=== PATIENT | male | born 1935 | race Caucasian/White ===

== ENCOUNTER 2022-03-31 15:26 | Outpatient (REF) | payer MEDICARE, SELFPAY ==
--- NOTE | ~2022-03-31 | XR_ITS ---
EXAMINATION: XR CHEST CLINICAL INFORMATION: Wheezing COMPARISON: Previous chest x-ray September 2019 TECHNIQUE: 2 views of the chest were obtained. FINDINGS: The cardiac and mediastinal contours are stable. The lungs are clear. There is no pleural effusion or pneumothorax. There are degenerative changes of the spine. XR/XR chest 2V IMPRESSION: No evidence for acute disease in the chest.
== END 2022-03-31 15:27 | disposition home or self-care (01) ==
LOC: HO.XRAY 15:26
PROVIDERS: PCP Internal Medicine; Visit Provider Hospitalist
DX: G47.33 Obstructive sleep apnea (adult) (pediatric) (principal); R06.2 Wheezing; Z99.89 Dependence on other enabling machines and devices
CPT/HCPCS: 71046; 99202

== ENCOUNTER → 2022-10-05 14:45 | Outpatient (BNVA) | payer MEDICARE, SELFPAY | PROVIDERS: PCP Internal Medicine; Visit Provider Hospitalist | DX: G47.33 Obstructive sleep apnea (adult) (pediatric) (principal); R06.02 Shortness of breath; Z99.89 Dependence on other enabling machines and devices | CPT/HCPCS: 99212 ==

== ENCOUNTER 2023-04-01 14:52 | Outpatient (AMB) | payer MEDICARE, SELFPAY ==
[2023-04-01 14:58] VITALS: BP 128/70; PULSE 64; O2SAT 95; BMI 34.7
--- NOTE | 2023-04-01 14:58 | A.OFFVIS_ITS ---
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 He has been using CPAP now for many years. The CPAP therapy has been affecting beneficial for him. he does uses CPAP more than 4 hours a night. He did bring it in we were able to downloaded. Average use is around 6 hours and 30 minutes. His average pressure is close to 11 cm. Currently the APAP settings are working well for him. His AHI is that the 0.6 events an hour. Recently he did get a call from his [employer] company, [employer]. Did explain to her the machine is no longer working effectively. He would require a replacement machine at this time. Therefore, go ahead and submit a new prescription for a new APAP AirSense 11. respiratory levi he is doing well. On examination he does have some wheezing. He does not use any inhalers and which is not to use 1 at this time. The patient understands that if his wheezing shortness of breath is worse he is to call the office with start him on inhaler therapy. Patient will also undergo a chest x-ray. The 10/05/2022 the patient is here for a pulm onary follow-up visit. The patient continues uses CPAP therapy. The therapy continues to be affecting beneficial. He does use a nasal mask. The problem is that this current nasal mask is irritating his nasal bridge. He is having some breakdown in irritation making it hard for him to tolerate he also complains of a dry mouth. In the office year we had a F 30 mask available. Size small. Seems to fit him well. He understands the fullface mask will help with his mouth dryness he understands that the dryness is not good for his gingival and dental health. He is willing to try. I also sent a prescription to his [employer] company, [employer] in order for him to continue with this mask. If however the patient cannot tolerate the fullface mask he can always consider an N30 I mask which should be a cradle type of mask. We did review his chest x-ray. Was within normal limits. No acute disease. Denies any significant wheezing overall he is doing better no significant shortness of breath. He is grieving the loss of his in this has been very hard. He has been staying with his son and daughter. 04/01/2023 the patient is here for a pulm onary follow-up visit. The patient has been doing well from a CPAP standpoint. The CPAP therapy has been affecting beneficial. He has been using his equipment and has been getting supplies regularly. Sometimes he alternates from his old mask to the new mask but ultimately continues use it more than 4 hours a night at therapy has been affecting beneficial. Regards the asthma seems to be doing well. Has not required his inhaler. The patient has been complaining of some dyspnea on exertion but minimal. He is staying busy working in the [employer] and help his neighbors. He is still grieving the loss of his . He is here for here in the room. The patient does have some crackles on his left base will therefore will request a repeat x-ray to address those findings. [facility] Medical History (Updated 04/01/23 @ 15:22 by Samson Torrez MD) ABEBE on CPAP Social History (Updated 03/31/22 @ 15:06 by REJI Manriquez) Patient Tobacco Use Status: Former Tobacco user Tobacco use type: Cigarette Years Smoked: 20 years Review of Systems Const Denies fatigue Eyes Denies change in vision ENT Denies change in voice, Reports facial pain and Reports nasal trauma Card Denies chest pain Resp Reports cough and Denies wheezing GI Reports no additional complaints Musc Reports no additional complaints Skin/Breast Denies rash Neuro Reports no additional complaints Endo Denies fatigue Francis/Lymph Denies easy bleeding Aller/Immun Denies wheezing Physical Exam Vital Signs: Last Vital Signs Pulse 64 04/01/23 14:58 BP 128/70 04/01/23 14:58 Pulse Ox 95 04/01/23 14:58 Oxygen Delivery Method Room Air 04/01/23 14:58 BMI result Body Mass Index 34.7 Const General: comfortable HEENT Head: Yes normal to inspection Neck Neck: Yes supple Chest Chest palpation & inspection: normal inspection of the chest Resp Effort & Inspection: normal respiratory effort Auscultation: crackles Cardio Rate: regular rate Rhythm: regular rhythm Heart sounds: S1 normal heart sound present and S2 normal heart sound present GI Auscultation: normal bowel sounds Skin General skin exam: no rashes or lesions noted Lesions: no lesions Extrem General: Yes no clubbing, cyanosis or edema Assessment & Plan Assessment & Plan (1) ABEBE on CPAP: Code(s): G47.33 - Obstructive sleep apnea (adult) (pediatric); Z99.89 - Dependence on other enabling machines and devices (2) Chest crackles: Code(s): R09.89 - Other specified symptoms and signs involving the circulatory and respiratory systems Plan continue APAP F30 small mask consider OBED CXR F/U 10-12 months Orders: Orders XR chest 2V Today R09.89 - Other specified symptoms and signs involving the circulatory and respiratory systems Coding Level of Care Code Est Pt Level 4 (61230) Diagnoses ABEBE on CPAP G47.33; Z99.89 Chest crackles R09.89 Time Spent (min) 17
== END 2023-04-01 15:30 | disposition home or self-care (01) ==
PROVIDERS: PCP Internal Medicine; Visit Provider Hospitalist
DX: G47.33 Obstructive sleep apnea (adult) (pediatric) (principal); Z99.89 Dependence on other enabling machines and devices; R09.89 Other specified symptoms and signs involving the circulatory and respiratory systems
CPT/HCPCS: 99214

== ENCOUNTER → 2023-04-01 14:52 | Outpatient (BNVA) | payer MEDICARE, SELFPAY | PROVIDERS: PCP Internal Medicine; Visit Provider Hospitalist | DX: G47.33 Obstructive sleep apnea (adult) (pediatric) (principal); R09.89 Other specified symptoms and signs involving the circulatory and respiratory systems; Z87.891 Personal history of nicotine dependence; Z99.89 Dependence on other enabling machines and devices | CPT/HCPCS: 99212 ==

== ENCOUNTER 2023-04-06 13:45 | Outpatient (REF) | payer MEDICARE, SELFPAY ==
--- NOTE | ~2023-04-06 | XR_ITS ---
EXAMINATION: XR CHEST CLINICAL INFORMATION: Other specified symptoms and signs involving the circulatory and respiratory systems COMPARISON: None available. TECHNIQUE: 2 views of the chest were obtained. FINDINGS: No significant abnormality is noted involving the heart, lungs, mediastinum, bony thorax or soft tissues. XR/XR chest 2V IMPRESSION: No acute disease.
== END 2023-04-06 13:46 | disposition home or self-care (01) ==
LOC: HO.XRAY 13:45
PROVIDERS: Visit Provider Hospitalist
DX: R09.89 Other specified symptoms and signs involving the circulatory and respiratory systems (principal)
CPT/HCPCS: 71046

== ENCOUNTER 2023-07-29 10:59 | Inpatient (IN) | payer MEDICARE, SELFPAY ==
[2023-07-29] VITALS (11 sets, daily range): BP systolic 135–179; BP diastolic 55–76; PULSE 48–71; RESP 13–20; TEMP 36–36.6; O2SAT 93–98; BMI 15.5
--- NOTE | ~2023-07-29 | XR_ITS ---
EXAMINATION: XR CHEST CLINICAL INFORMATION: Pain. COMPARISON: None available. TECHNIQUE: 2 views of the chest were obtained. FINDINGS: The lungs are well-expanded and clear. The heart size and pulmonary vascularity is normal. No gross bony abnormality seen. XR/XR chest 2V IMPRESSION: Unremarkable chest exam.
--- NOTE | ~2023-07-29 | FL_ITS ---
EXAMINATION: XR FLUOROSCOPY WITH IMAGES CLINICAL INFORMATION: Pacemaker. COMPARISON: Chest radiograph 07/29/2023. TECHNIQUE: Fluoroscopy Supervised By: Shawn Grace MD. Fluoroscopy Time: 11 minutes. Cumulative Dose: 222 mGy. DAP: 60.7 Gy-cm2. Images: 9. FINDINGS: Sequential imaging demonstrates placement of a right chest wall dual-lead pacemaker: Please see Dr. Grace's procedure note for full details. FL/FL guidance in OR IMPRESSION: Fluoroscopy and spot films provided during pacemaker placement.
--- NOTE | ~2023-07-29 | CT_ITS ---
EXAMINATION: CT HEAD WITHOUT CONTRAST CLINICAL INFORMATION: Unwitnessed fall. COMPARISON: None. TECHNIQUE: Contiguous axial imaging was performed from the skull base to vertex without intravenous administration of contrast. Coronal and sagittal reformatted images are performed at the CT scanner. [This CT examination was performed using dose optimization techniques as appropriate, variously including the following: *Automated exposure control *Adjustment of mA and/or kV according to patient size (this includes techniques or standardized protocols for targeted exams where dose is matched to indication/reason for exam; i.e. extremities or head) *Use of iterative reconstruction technique] DLP: 765 mGy-cm. FINDINGS: There is no evidence of acute intracranial hemorrhage or territorial infarction. No abnormal mass-effect or midline shift is seen. Maldonado to white matter differentiation is well preserved. No extra-axial fluid collections are identified. There is generalized global volume loss. There is moderate prominence of the ventricles and the sulci . There is mild hypodensity of the periventricular white matter due to chronic small vessel ischemic disease. There are vascular calcifications of the internal carotid arteries bilaterally. There is no osseous abnormality. The mastoid air cells and visualized portions of the paranasal sinuses are well-aerated. CT/CT head/brain wo IV con IMPRESSION: No acute intracranial pathology.
--- NOTE | ~2023-07-29 | XR_ITS ---
EXAMINATION: XR CHEST CLINICAL INFORMATION: Status post pacemaker placement COMPARISON: Chest radiograph 07/29/2023 TECHNIQUE: Frontal view of the chest was obtained. FINDINGS: Since the prior study a right chest wall dual-lead pacemaker has been placed with leads in good position. There is no pneumothorax. There is mild cardiac enlargement. No CHF, infiltrates or effusions. XR/XR chest 1V IMPRESSION: Newly placed pacemaker in good position without complication.
--- NOTE | 2023-07-29 11:07 | ECG_ITS ---
Test Reason : pain Blood Pressure : / mmHG Vent. Rate : 068 BPM Atrial Rate : 068 BPM P-R Int : 308 ms QRS Dur : 128 ms QT Int : 434 ms P-R-T Axes : 028 -47 010 degrees QTc Int : 461 ms Sinus rhythm with 1st degree A-V block Left axis deviation Non-specific intra-ventricular conduction block Abnormal ECG When compared with ECG of 20-SEP-2019 14:13, No significant change was found Referred By: Jose Prieto Electronically Signed By:SONIA MCINTOSH
--- NOTE | 2023-07-29 11:07 | ED.GENADULT ---
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 He assumed he slipped on the ice so he thought nothing of it but he is not sure how long his LOC was. He had no trauma and woke up himself no incontinence. He then went about his day. He had no prodrome. He went to coffee with friends around 11am today was sitting and had a witnessed non prodromal syncopal event no seizures no incontinence no tongue biting no postictal state. He feels fine now. He has no CP/SOB or GIB symptoms. MD complaint: syncope Onset (ago): day(s) (yesterday) Severity: moderate Relieving factors: none Exacerbating factors: none Associated symptoms: denies other symptoms Treatments prior to arrival: none Related Data Home Medications Medication Instructions Recorded Confirmed ascorbic acid (vitamin C) 250 mg 250 mg PO DAILY 03/31/22 tablet aspirin 325 mg tablet,delayed 325 mg PO DAILY 03/31/22 release (Ecotrin) atenolol 50 mg tablet 75 mg PO DAILY 03/31/22 atorvastatin 20 mg tablet 20 mg PO DAILY 03/31/22 calcium carbonate 600 mg calcium 600 mg PO DAILY 03/31/22 (1,500 mg) tablet (Calcium) multivitamin 1 tab PO DAILY 03/31/22 benzonatate 100 mg capsule 100 mg PO TID PRN Cough 07/29/23 Allergies Allergy/AdvReac Type Severity Reaction Status Date / Time amoxicillin [From Augmentin] Allergy Severe Rash Verified 07/29/23 11:07 clavulanic acid Allergy Severe Rash Verified 07/29/23 11:07 [From Augmentin] clindamycin Allergy Severe Hives Verified 07/29/23 11:07 levofloxacin [From Levaquin] Allergy Severe Headache Verified 07/29/23 11:07 Review of Systems Review of Systems: Constitutional : No Fever, No Chills, No Fatigue ENT/Mouth : No sore throat, No Rhinorrhea Eyes: No Eye Pain, No Swelling, No Redness Cardiovascular : No Chest Pain, No SOB, No Dyspnea on Exertion Respiratory : No Cough, No Sputum Gastrointestinal : No Nausea, No Vomiting, No Diarrhea, No abdominal Pain Genitourinary : No Dysuria, No Urinary Frequency, No Hematuria, Musculoskeletal : No joint pain, No Myalgias, No Joint Swelling Skin : No Skin Lesions, No rash Neuro : No Weakness, No Numbness, No Dizziness, no Headache, pos syncope Psych : No Anxiety/Panic, No Depression Heme/Lymph: No Bruising, No Bleeding,No Lymphadenopathy Endocrine : No Polyuria, No Polydipsia All other systems reviewed and are negative [facility] Past Medical History Attestation statement: The following information was validated with the patient. Source: old records reviewed Onset Date is defined in the Problem List Problems that require an onset date and time if occurred within 24 hrs of arrival to the ED Aortic Dissection and Rupture; Neurologic impairment; Cardiopulmonary Arrest; Endotracheal Intubation; Insertion or Replacement of Mechanical Circulatory Assist Device Medical History HLD (hyperlipidemia) HTN (hypertension) ABEBE on CPAP Social History Social History Patient Tobacco Use Status: Former Tobacco user Tobacco use type: Cigarette Years Smoked: 20 years Advance Directives: No Advance Directives Information Provided: Yes Physical Exam ED Vital Signs: Vital Signs - 24 hr 07/29/23 11:08 07/29/23 11:52 07/29/23 12:18 Temperature 98 F Pulse Rate 71 61 61 Respiratory Rate 18 15 Blood Pressure 179/76 H 164/69 H 146/75 H Pulse Oximetry 98 94 Oxygen Delivery Method Room Air 07/29/23 12:18 07/29/23 12:19 Temperature Pulse Rate 62 62 Respiratory Rate Blood Pressure 162/75 H 135/65 Pulse Oximetry Oxygen Delivery Method BMI result Body Mass Index 15.5 Appearance: Alert. Oriented X3. No acute distress. Eyes: Pupils equal, round and reactive to light. ENT: Pharynx normal. Neck: Normal inspection. Neck supple. CVS: Normal heart rate and rhythm. Pulses normal. Respiratory: No respiratory distress. Breath sounds normal. Abdomen: Soft and nontender. Skin: Skin warm and dry. Normal skin color. Normal skin turgor. Extremities: No lower extremity edema. No calf ttp Neuro: Oriented X 3. No motor deficit. No sensory deficit. Course Course Course Narrative: RME- 88-year-old male presents for evaluation after a witnessed syncopal episode. He reports this happened yesterday while he was snow blowing and then again today. He was sitting down in a chair when ?his eyes rolled back in his head and he was unresponsive for a few seconds. ? Patient admits that he felt dizzy prior to this but is not currently dizzy. Plan for syncopal workup Reevaluation(s) Reevaluation #1: negative ortho VS Medications Administered Generic Name Dose Route Start Last Admin Trade Name Freq PRN Reason Stop Dose Admin Enoxaparin Sodium 30 mg 07/29/23 14:00 07/29/23 15:05 Enoxaparin Sodium 30 Mg/0.3 Ml Syringe SUBCUT 30 mg Q24H GRISELDA Administration Discontinued Medications Generic Name Dose Route Start Last Admin Trade Name Freq PRN Reason Stop Dose Admin Sodium Chloride 1,000 mls @ 999 mls/hr 07/29/23 14:00 07/29/23 14:55 Ns IV 07/29/23 15:00 999 mls/hr .Q1H1M GRISELDA Administration Medical Decision Making Medical Decision Making [facility] Narrative: 88 yo male with PMH of HTN, HLD, ABEBE here with c/o non prodromal and exertional syncope then syncope at rest today. He will need labs, EKG, ortho VS but also admission for tele monitoring and cardiology consult given exertional syncope. Differential Diagnosis Differential Diagnoses: The differential diagnosis associated with the presentation includes syncope, ahrrythmia Admission/Observation Consideration of admission/observation: Escalation of care including admission/observation considered will admit Consult Healthcare Provider Management of the patient was discussed with: Hospitalist (will admit) Lab Data [facility] Lab Attestation statement: I reviewed the patient's lab results. 07/29/23 11:21 07/29/23 11:21 Labs: Lab Results 07/29/23 Range/Units 11:21 WBC 7.4 (4.8-10.8) X10*3/uL RBC 5.27 (4.60-5.80) X10*6/uL Hgb 15.1 (14.0-18.0) g/dl Hct 45.7 (42.0-52.0) % MCV 86.7 (80.0-98.0) fL MCH 28.7 (27.0-33.0) pg MCHC 33.0 (31.0-36.0) g/dl RDW 14.3 (11.0-16.0) % Plt Count 148 L (160-400) X10*3/uL MPV 11.5 (9.4-12.4) fL Immature Gran % (Auto) 0.4 (0.0-0.4) % Neut % (Auto) 46.9 (45-73) % Lymph % (Auto) 38.5 (20-40) % [place] % (Auto) 9.2 (2-11) % Eos % (Auto) 3.8 (0-4) % Baso % (Auto) 1.2 (0-2) % Lymph # (Auto) 2.8 (1.2-4.9) X10*3/uL [place] # (Auto) 0.7 (0.1-1.2) X10*3/uL Eos # (Auto) 0.3 (0.0-0.4) X10*3/uL Baso # (Auto) 0.1 (0.0-0.2) X10*3/uL Abs Immat Gran (auto) 0.03 (0.00-0.03) X10*3/uL Absolute Neuts (auto) 3.5 (2.0-8.3) x10*3/uL Absolute Nucleated RBC 0.000 (0.0-0.012) X10*3/uL Nucleated RBC % (auto) 0.0 (0.0-0.2) /100WBC PT 13.3 (11.1-13.3) SEC INR 1.1 (0.9-1.1) APTT 53.5 H (26.0-36.4) SEC Sodium 140 (135-145) mmol/L Potassium 4.4 (3.3-5.1) mmol/L Chloride 107 (96-108) mmol/L Carbon Dioxide 27 (22-29) mmol/L Anion Gap 10 L (12-20) BUN 17 H (9-16) mg/dL Creatinine 1.13 (0.5-1.4) mg/dL Estim Creat Clear Calc 29.5 Estimated GFR > 60 Random Glucose 98 (60-115) mg/dL Calcium 9.8 (8.4-10.2) mg/dL Total Bilirubin 0.4 (0.0-1.0) mg/dL AST 57 H (5-37) U/L ALT 55 H (0-40) U/L Alkaline Phosphatase 71 (39-117) U/L Troponin I High Sens 4.5 (<3.5-35.0) ng/L B-Natriuretic Peptide 78 (<100) pg/mL Total Protein 8.1 H (6.5-8.0) g/dL Albumin 4.2 (3.5-5.0) g/dL Lipase 21 (8-78) U/L Independent Interpretation I performed an independent interpretation of an: EKG and Plain X-Ray Interpretation: Rate: 68 Rhythm: NSR 1st degree AVB [place]: left Normal P waves. Normal KATH. widened QRS complex. ST T wave : no SHAUNNA, inverted t wave III qTC: 461 prior studies: no acute ischemia The study has been interpreted contemporaneously by me. . Radiology Impression Discussion of test interpretation with radiology: I have reviewed the radiologist's reading. Independent Historian Clinical information obtained from an independent historian. History obtained from or confirmed by: Friend External Record Review External record reviewed: Inpatient record Discharge Plan Discharge Clinical Impression: Syncope Qualifiers: Syncope type: unspecified Qualified Code(s): R55 - Syncope and collapse Patient Disposition: Admitted As Inpatient
[2023-07-29 11:27] LABS: MANUAL DIFF FLAG NO
[2023-07-29 11:32] LABS: Basophils Absolute Auto 0.1 X10*3/uL (0.0-0.2); Basophils Percent Auto 1.2 % (0-2); Eosinophils Absolute Auto 0.3 X10*3/uL (0.0-0.4); Eosinophils Percent Auto 3.8 % (0-4); Hematocrit 45.7 % (42.0-52.0); Hemoglobin 15.1 g/dl (14.0-18.0); Imm Gran Abs Auto 0.03 X10*3/uL (0.00-0.03); Imm Gran Pct Auto 0.4 % (0.0-0.4); Lymphocytes Absolute Auto 2.8 X10*3/uL (1.2-4.9); Lymphocytes Percent Auto 38.5 % (20-40); Mean Corpuscular Hemoglobin 28.7 pg (27.0-33.0); Mean Corpuscular Volume 86.7 fL (80.0-98.0); Mean Platelet Volume 11.5 fL (9.4-12.4); Monocytes Absolute Auto 0.7 X10*3/uL (0.1-1.2); Monocytes Percent Auto 9.2 % (2-11); Neutrophils Absolute Auto 3.5 x10*3/uL (2.0-8.3); Neutrophils Percent Auto 46.9 % (45-73); Platelet Count 148 X10*3/uL (160-400); Red Blood Count 5.27 X10*6/uL (4.60-5.80); Red Cell Distribution Width 14.3 % (11.0-16.0); White Blood Count 7.4 X10*3/uL (4.8-10.8)
[2023-07-29 11:36] LABS: INTERNATIONAL NORM RATIO 1.1 (0.9-1.1); Prothrombin Time 13.3 SEC (11.1-13.3)
[2023-07-29 11:39] LABS: Partial Thromboplastin Time 53.5 SEC (26.0-36.4)
[2023-07-29 11:46] LABS: Alanine Aminotransferase 55 U/L (0-40); Albumin Level 4.2 g/dL (3.5-5.0); Alkaline Phosphatase 71 U/L (39-117); Anion Gap 10 (12-20); Aspartate Amino Transferase 57 U/L (5-37); Bilirubin Total 0.4 mg/dL (0.0-1.0); Blood Urea Nitrogen 17 mg/dL (9-16); Calcium 9.8 mg/dL (8.4-10.2); Carbon Dioxide 27 mmol/L (22-29); Chloride 107 mmol/L (96-108); Creatinine Clr Calc Pharmacy 29.5; Estimated Glomerular Filt Rate > 60; Glucose Random 98 mg/dL (60-115); Lipase 21 U/L (8-78); Potassium 4.4 mmol/L (3.3-5.1); Sodium 140 mmol/L (135-145); Total Protein 8.1 g/dL (6.5-8.0)
[2023-07-29 11:51] LABS: B Type Natriuretic Peptide 78 pg/mL (<100); Troponin-I High Sensitivity 4.5 ng/L (<3.5-35.0)
--- NOTE | 2023-07-29 12:53 | P.HPHOSP_ITS ---
History of Present Illness Date of Service: 07/29/23 Attending physician on admission: Bartolo Mcdaniel Chief Complaint: Syncope Pt is an 88-year-old male with a PMH significant for?HTN, HLD, ABEBE on CPAP who presents to the ED with?two syncopal episodes in the past 24 hours. Yesterday pt was out snowblowing when a passerby in a truck yellow at him if he needed any help. Patient found himself in a snow bank without any clear recollection how he ended up there. Thought that he must have slipped on the ice and falling back into this no back. Denies any prodrome. No lightheadedness or dizziness during this episode. Patient was helped to his feet by the passerby and had no other symptoms other some muscle tightness in his upper right thigh. Today patient was out having breakfast with some friends when had another episode. States he was just talking to people when he felt lightheaded, dizzy, and then ?passed out?. The next thing he remembers is waking up and his friends saying they were taking him to the hospital for further evaluation. Patient does report having lightheadedness and dizziness before episode, but no other symptoms. Denies chest pain/pressure, palpitations. No headache, acute vision changes. Denies any seizure-like activity. No tongue bite, no incontinence. Patient denies any significant cardiac history, and states he is on atenolol solely for blood pressure control. Reports taking one 50 mg tablet in the morning and a half tablet at night. Has recently started taking magnesium, reports no other medication changes and reports being compliant with his medications. In the ED pt was hypertensive up to 179/76, otherwise vitals WNL. Labs were significant for AST 57, ALT 55, otherwise grossly unremarkable. No leukocytosis. No electrolyte abnormalities. Creatinine 1.13. CXR pending, pelvic similar to previous. EKG demonstrated first-degree AV block with left axis deviation, but no evidence of ST elevations or depressions. First degree AV block has increased significantly since last EKG we have on record from 2019. Pt will be admitted to the hospital under observation for further workup for syncopal episodes. Review of Systems 2 Review of Systems: Lightheadedness Syncopal episodes Denies headache, acute vision changes No tongue bite or incontinence No confusion upon waking Denies chest pain/pressure, palpitations No fever, chills, nausea, vomiting, abdominal pain [facility] Medical History (Updated 07/29/23 @ 14:04 by ANKIT Meyer) HLD (hyperlipidemia) HTN (hypertension) ABEBE on CPAP Social History Patient Tobacco Use Status: Former Tobacco user Tobacco use type: Cigarette Years Smoked: 20 years Advance Directives: No Advance Directives Information Provided: Yes Meds Allergies Allergy/AdvReac Type Severity Reaction Status Date / Time amoxicillin [From Augmentin] Allergy Severe Rash Verified 07/29/23 11:07 clavulanic acid Allergy Severe Rash Verified 07/29/23 11:07 [From Augmentin] clindamycin Allergy Severe Hives Verified 07/29/23 11:07 levofloxacin [From Levaquin] Allergy Severe Headache Verified 07/29/23 11:07 Home Medications Medication Instructions Recorded Confirmed Last Taken Type ascorbic acid (vitamin C) 250 mg 250 mg PO DAILY 03/31/22 Unknown History tablet aspirin 325 mg tablet,delayed 325 mg PO DAILY 03/31/22 Unknown History release (Ecotrin) atenolol 50 mg tablet 75 mg PO DAILY 03/31/22 Unknown History atorvastatin 20 mg tablet 20 mg PO DAILY 03/31/22 Unknown History calcium carbonate 600 mg calcium 600 mg PO DAILY 03/31/22 Unknown History (1,500 mg) tablet (Calcium) multivitamin 1 tab PO DAILY 03/31/22 Unknown History benzonatate 100 mg capsule 100 mg PO TID PRN Cough 07/29/23 Unknown History Physical Exam 2 Vital Signs and Narrative: Vital Signs: Last Vital Signs Temp 98 F 07/29/23 11:08 Pulse 62 07/29/23 12:19 Resp 15 07/29/23 11:52 BP 135/65 07/29/23 12:19 Pulse Ox 94 07/29/23 11:52 O2 Del Method Room Air 07/29/23 11:52 BMI result Body Mass Index 15.5 Constitutional: Alert, in no acute distress. Mental Status: Oriented to person, place and time. Eyes: Pupils are equal, round, and reactive to light. Ear, Nose, and Throat: Oropharynx clear, mucous membranes moist. Ears and nose without deformities. Trachea midline. Respiratory: Clear to auscultation bilaterally. No wheezing, rales, or rhonchi. Cardiovascular: S1, S2 regular. No murmurs, rubs, or gallops. Gastrointestinal: Abdomen soft, non-tender, non-distended. Normal bowel sounds. Neurologic: Cranial nerves II-XII are grossly intact bilaterally. No focal neurological deficits. Moves all extremities spontaneously. Skin: Warm, dry. Musculoskeletal: No cyanosis or clubbing. Extremities: No edema. Right thigh tender to palpation. ROM of right hip extension limited to pain. Psychiatric: Normal mood and affect. Results Labs 07/29/23 11:21 07/29/23 11:21 Labs: Laboratory Results - last 24 hr 07/29/23 11:21 MCV 86.7 MCH 28.7 MCHC 33.0 RDW 14.3 Plt Count 148 L MPV 11.5 Immature Gran % (Auto) 0.4 Neut % (Auto) 46.9 Lymph % (Auto) 38.5 [place] % (Auto) 9.2 Eos % (Auto) 3.8 Baso % (Auto) 1.2 Lymph # (Auto) 2.8 [place] # (Auto) 0.7 Eos # (Auto) 0.3 Baso # (Auto) 0.1 Abs Immat Gran (auto) 0.03 Absolute Neuts (auto) 3.5 Absolute Nucleated RBC 0.000 Nucleated RBC % (auto) 0.0 PT 13.3 INR 1.1 APTT 53.5 H Anion Gap 10 L Estim Creat Clear Calc 29.5 Estimated GFR > 60 Random Glucose 98 Calcium 9.8 Total Bilirubin 0.4 AST 57 H ALT 55 H Alkaline Phosphatase 71 B-Natriuretic Peptide 78 Total Protein 8.1 H Albumin 4.2 Lipase 21 Assessment and Plan (1) Syncope: Qualifiers: Syncope type: unspecified Qualified Code(s): R55 - Syncope and collapse Status: Acute Plan Pt is an 88-year-old male with a PMH significant for?HTN, HLD, ABEBE on CPAP who presents to the ED with?two syncopal episodes in the past 24 hours. Pt will be admitted to the hospital under observation for further workup for syncopal episodes. Syncopal episodes Patient with 2 syncopal episodes since yesterday Etiology unclear: ?Differential includes vasovagal vs cardiac vs mild dehydration Random glucose 98, orthostatics negative, patient without seizure-like or postictal activity Patient bradycardic in the 50s, currently on 75 mg split-dosed of atenolol Will give 1 L IVF Will hold atenolol Echocardiogram Cardiology consult Neurochecks qshift Monitor on telemetry Bradycardia Pt's HR in the 50s Will hold atenolol Monitor on telemetry Abnormal EKG EKG shows first degree AV block, significantly increased over previous on 09/2019 Monitor on telemetry Cardiology consult HTN Will hold atenolol d/t bradycardia, syncope Will swich to amlodipine 5 mg daily Right thigh pain/tightness Chronic, though worse after fall yesterday while snow blowing Analgesics for pain management PT consult ABEBE CPAP at nighttime HLD Continue statin Full Code Attending:?Dr. Mcdaniel DVT Prophylaxis: Julee Patient will be admitted to the hospital under observation for further workup of multiple syncopal episodes since yesterday. Patient require additional cardiac imaging, workup, and monitoring, as well as specialist consultation. Quality Stroke Does the patient have a stroke diagnosis?: No VTE Prior VTE?: No VTE Risk Level:: Medical - moderate - high VTE Device Contraindication: Treatment Not Indicated VTE Drug Contraindication: N/A - Med Ordered
[2023-07-29 14:02] LABS: Appearance Urine Clear; Color Urine Dark Yellow; Glucose Urine UA Negative (Negative); Leukocyte Esterase Urine Negative (Negative); Nitrite Urine Negative (Negative); PH 6.5 (5.0-9.0); UMIC TRIGGER UACC YES; Urine Blood Large (3+) (Negative); Urine Ketones Negative (Negative); Urine Protein Negative (Neg-Trace)
[2023-07-29 14:06] LABS: Bacteria Urine None Seen (None Seen); Hyaline Casts Urine 0-2 /LPF (0-2); RBC Urine >20 /HPF (0-2); Squamous Epithelial Cell Urine 0-2 /HPF (0-2); WBC Urine 0-5 /HPF (0-5)
[2023-07-29] MEDS: 0.9 % Sodium Chloride 1,000 ML 999 ML IV (14:55)
[2023-07-29] MEDS: Enoxaparin Sodium 30 MG/0.3 ML SYRINGE SUBCUT (15:05)
--- NOTE | 2023-07-29 15:12 | PC.NURSE ---
pt a+o x2, he reports having two syncopal episodes within a 24 hour period. he states that he was snow blowing yesterday and passed out, his neighbor helped him up. this morning while having coffee with his friends he passed out again. unknown if loc with first episode. no loc this morning. he reports feeling dizzy prior to passing out this morning. neuros are intact.
--- NOTE | 2023-07-29 15:24 | PHA.MEDREC ---
Pharmacy Consult ? Medication Reconciliation Pharmacy has completed the medication reconciliation. Basket Bottom Machine Operator Anselmo spoke with patient who confirmed medicaitons. Cristine Leong, GermanD
--- NOTE | 2023-07-29 15:28 | PC.NURSE ---
20g iv inserted L wrist, pt tolerated well. fluid started and Lovenox administered as documented. pt's daughter is at his bedside.
--- NOTE | 2023-07-29 19:18 | MHC.EDTECH ---
This pct assumed care of Pt at 1900 ,vitals taken ,Pt refused to wear red socks at this time ,Patient said he will switch socks when he has a bed upstairs ,RN Nissa aware ,Pt belonings list done ,Patient daughter at bedside .
--- NOTE | 2023-07-29 19:31 | MHC.EDTECH ---
Pt was assisted to the bedside commode and the pt urinated and passed stool. The pt cleaned themselves and was assisted back in bed and had no further requests.
[2023-07-29] MEDS: Atorvastatin Calcium 20 MG TABLET PO (21:28)
[2023-07-29] MEDS: 0.9 % Sodium Chloride Flush 3 ML SYRINGE IVFLUSH (21:29)
[2023-07-30] VITALS (7 sets, daily range): BP systolic 117–178; BP diastolic 60–74; PULSE 54–76; RESP 18–24; TEMP 35.9–36.5; O2SAT 92–93
--- NOTE | 2023-07-30 | EEG_ITS ---
This is a 16-channel EEG with an EKG lead. The patient is reported awake and restless during the tracing. Background EEG rhythm is 7-8 hertz 5-50 microvolt posteriorly, lower amplitude fast anteriorly. Photic stimulation does not produce any significant driving. Hyperventilation is not performed. Cardiac lead does not reveal any significant abnormality. No obvious sharp wave spikes or paroxysmal tendency noted. Cardiac lead does not reveal any significant abnormality. IMPRESSION: Generalized slowing with no evidence of seizure disorder. MD JON Masterson/ROJELIO / [id number]
--- NOTE | 2023-07-30 07:00 | CA_ITS ---
Transthoracic Echocardiogram Patient (Last, First, Middle): Clive Servin H Gender: Male Date of : 1935 Age: 88 Procedure Date: 07/30/2023 Procedure Type: Transthoracic Echocardiogram Location: [facility] [place] Height: 172.72 cm Weight: 102. kg BSA: 2.15 m2 Heart Rate: 62 bpm BP: 135 / 65 mmHg Apprentice Electrician: SB Referring MD: Khadra PHAM Symptoms: Syncope Study Quality: Adequate w contrast ECG Rhythm: Sinus Conclusions: - The left ventricular systolic function is hyperdynamic. The visually estimated ejection fraction is >70%. - No obvious valvular pathology seen on this study. Findings Procedure Information Contrast agent, definity, is being given per protocol without apparent complications. The quality of the study was technically difficult. The study quality is limited by patients body habitus and limitations of a portable exam. Left Ventricle Normal left ventricular cavity size. The left ventricular systolic function is hyperdynamic. The visually estimated ejection fraction is >70%. There is no evidence of regional wall motion abnormalities. Diastolic function is normal for age. There is moderate septal asymmetric hypertrophy. Right Ventricle Normal right ventricular cavity size and systolic function. Atria Both atria are normal in size. Aortic Valve There is mild calcification of the aortic valve. There is no aortic valve stenosis. There is no aortic valve regurgitation. Mitral Valve The mitral valve appears normal. There is no mitral valve regurgitation. There is no mitral valve stenosis. Pulmonic Valve The pulmonic valve is likely normal. Tricuspid Valve There is no tricuspid valve regurgitation. Tricuspid regurgitation envelope is inadequate for calculation of right ventricular systolic pressure. Great Vessels The asc aorta is normal in size. Venous The inferior vena cava was not well visualized. The inferior vena cava is normal in size. Pericardium/Pleural Prominent epicardial adipose tissue noted. There is no evidence of pericardial effusion. Prior Study Comparison No prior study available for comparison. Recommendations, Care & Conclusions No obvious valvular pathology seen on this study. Measurements 2D Linear Measurements IVSd: 1.31 0.6-0.9/0.6-1.0 cm LVIDd: 4.60 3.9-5.3/4.2-5.9 cm LVIDd Index: 2.14 2.4-3.2/2.2-3.1 cm/m2 LVIDs: 2.88 2.0-3.6 cm LVPWd: 1.03 0.7-1.1 cm LA Diam: 4.00 2.7-3.8/3.0-4.0 cm LAIDs Index: 1.86 1.5-2.3 cm/m2 LV Mass: 246.40 67-162/88-224 g LV Mass Index: 114.60 43-95/49-115 g/m2 LVOT Diam: 2.10 3.0+(-)1.3 cm 2D Systolic Function EF 4C: 79.10 >55% EF 2C: 75.50 >55% EF BiP: 77.80 >55% Mitral Valve MV Pk E: 0.75 MV PK A: 1.04 MV Decel Time: 219.00 E/A: 0.70 E'Lateral: 6.53 E'Medial: 4.13 E/E' Med: 18.20 E/E' Lat: 11.50 PHT: 64.00 MVA PHT: 3.44 Decel [place]: 3.42 Aortic Valve AoV Pk Carlos: 1.81 AoV Mn Carlos: 1.02 AoV VTI: 0.31 AoV Pk Grad: 13.00 Aov Mn Grad: 5.00 CASANDRA Cont.VTI: 2.44 LVOT LVOT Pk Carlos: 1.29 LVOT Mn Carlos: 0.73 LVOT VTI: 0.22 LVOT Pk Grad: 7.00 LVOT Mn Grad: 3.00 LVOT Diam: 2.10 LVOT Area: 3.46 Diastolic Function MV Pk E: 0.75 MV Pk A: 1.04 E/A: 0.70 E'Medial: 4.13 E/E' Med: 18.20 E' Laterial: 6.53 E/E' Lat: 11.50 Right Ventricle TAPSE (mm): 22.50 TVS' Carlos: 11.30 Tricuspid Valve RA Press: 8.00 Great Vessels Aorta Sinus of Valsalva: 3.30 2.0-3.5 cm Ao Asc: 3.10 2.1-3.4 cm Pulmonary Valve PV Pk Carlos: 1.23 Peak PV Grad: 6.00 AR Pk Carlos: 1.75 Updated in Other Vendor System with Status of Final Wander Berrios MD electronically signed on 07/30/2023 12:21:47 PM with status of Final
[2023-07-30 07:48] LABS: Glucose, Whole Blood 105 mg/dL (60-115)
[2023-07-30 07:59] LABS: Anion Gap 13 (12-20); Blood Urea Nitrogen 14 mg/dL (9-16); Calcium 9.2 mg/dL (8.4-10.2); Carbon Dioxide 26 mmol/L (22-29); Chloride 107 mmol/L (96-108); Creatinine Clr Calc Pharmacy 35.1; Estimated Glomerular Filt Rate > 60; Glucose Random 96 mg/dL (60-115); Magnesium 2.5 mg/dL (1.6-2.6); Potassium 4.3 mmol/L (3.3-5.1); Sodium 142 mmol/L (135-145)
[2023-07-30] MEDS: amLODIPine Besylate 5 MG TABLET PO (08:15)
[2023-07-30] MEDS: Multivitamin TABLET 1 TAB PO (08:15)
[2023-07-30] MEDS: Aspirin 81 MG TAB.CHEW PO (08:16)
[2023-07-30] MEDS: 0.9 % Sodium Chloride Flush 3 ML SYRINGE IVFLUSH ×2 (08:16→15:33)
--- NOTE | 2023-07-30 09:31 | P.CONCA_ITS ---
History of Present Illness History of Present Illness Date of Service: 07/30/23 Chief complaint: Syncopal Episodes Narrative: This is a cardiology consultation regarding syncope. Patient does not have any known cardiac issues like coronary disease or myocardial infarction or cardiomyopathy. Has hypertension, dyslipidemia, obstructive sleep apnea on CPAP. Also history of carotid endarterectomy per patient. Apparently, goes to vascular surgery at [facility]. He states that he was doing a lot of snow blowing and did that for more than an hour or so. Then apparently found himself in a snow bank and he thought that he fell down by sleeping. Then he realized may be that was not the case and he might have passed out. Any case, not clear what happened. However, no chest pains or shortness of breath or palpitations or in fact any other cardiac symptoms. Then it seems that he was having some breakfast and then had one further episode of passing out. Again no chest pain or other cardiac symptoms. No similar issues in the past. Today, he states he feels fine. Review of Systems 2 Review of Systems: Yes all other systems are reviewed and are negative Constitutional: Constitutional: Reports as per HPI and Reports no additional constitutional complaints Eyes: Eyes: Reports as per HPI and Denies no additional eye complaints ENT: Denies system reviewed and no additional complaints, except as documented and Reports as per HPI Cardiovascular: Cardiovascular: Reports as per HPI, Reports no additional cardiovascular complaints, Denies acrocyanosis, Denies cool extremities, Denies chest pain, Denies leg edema, Denies lightheadedness, Denies palpitations and Denies dyspnea Respiratory: Respiratory: Reports as per HPI, Denies no additional respiratory complaints and Denies dyspnea Gastrointestinal: Gastrointestinal: Reports as per HPI and Denies no additional gastrointestinal complaints Genitourinary: Genitourinary: Reports no additional male genitourinary complaints and Reports as per HPI Musculoskeletal: Musculoskeletal: Reports no additional musculoskeletal complaints and Reports as per HPI Integumentary/Breasts: Skin/Breast: Reports system reviewed and no additional complaints, except as docu Neurologic: Reports system reviewed and no additional complaints, except as documented and Reports as per HPI Psychiatric: Psychiatric: Reports no additional psychiatric complaints and Reports as per HPI Endocrine: Endocrine: Reports no additional endocrine complaints, Reports as per HPI and Denies palpitations Hematologic/Lymphatic: Hematologic/Lymphatic: Reports no additional hematologic/lymphatic complaints and Reports as per HPI Allergic/Immunologic: Allergic/Immunologic: Reports no additional allergic/immunologic complaints and Reports as per HPI [facility] Past Medical History Medical History (Updated 07/30/23 @ 09:34 by Wander Berrios MD) HLD (hyperlipidemia) HTN (hypertension) ABEBE on CPAP Family History Pertinent family history: No pertinent family history Social History Social History Patient Tobacco Use Status: Former Tobacco user Tobacco use type: Cigarette Years Smoked: 20 years Smoked in Last 30 Days: No Use of substances other than those prescribed or required for medical reasons: No Advance Directives: No Advance Directives Information Provided: Yes Nutrition Risks: No Nutritional Risk Meds Allergies Allergy/AdvReac Type Severity Reaction Status Date / Time amoxicillin [From Augmentin] Allergy Severe Rash Verified 07/29/23 11:07 clavulanic acid Allergy Severe Rash Verified 07/29/23 11:07 [From Augmentin] clindamycin Allergy Severe Hives Verified 07/29/23 11:07 levofloxacin [From Levaquin] Allergy Severe Headache Verified 07/29/23 11:07 Active Medications: Current Medications Acetaminophen (Acetaminophen 325 Mg Tablet) 650 mg PO Q6H PRN PRN Reason: Pain, Mild (Pain Scale 1-3) Amlodipine Besylate (Amlodipine Besylate 5 Mg Tablet) 5 mg PO DAILY [facility]; Protocol Last Admin: 07/30/23 08:15 Dose: 5 mg Aspirin (Aspirin 81 Mg Tab.Chew) 81 mg PO DAILY [facility] Last Admin: 07/30/23 08:16 Dose: 81 mg Atorvastatin Calcium (Atorvastatin Calcium 20 Mg Tablet) 20 mg PO BEDTIME [facility] Last Admin: 07/29/23 21:28 Dose: 20 mg Benzonatate (Benzonatate 100 Mg Capsule) 100 mg PO TID PRN PRN Reason: Cough Docusate Sodium (Docusate Sodium 100 Mg Capsule) 100 mg PO DAILY PRN PRN Reason: Constipation Enoxaparin Sodium (Enoxaparin Sodium 30 Mg/0.3 Ml Syringe) 30 mg SUBCUT Q24H [facility] Last Admin: 07/29/23 15:05 Dose: 30 mg Melatonin (Melatonin 3 Mg Tablet) 6 mg PO BEDTIME PRN PRN Reason: Insomnia Multivitamins/Vitamin C (Multivitamin Tablet) 1 tab PO DAILY [facility] Last Admin: 07/30/23 08:15 Dose: 1 tab Ondansetron HCl (Ondansetron Hcl 4 Mg/2 Ml Vial) 4 mg IVPUSH Q8H PRN PRN Reason: Nausea and Vomiting Sodium Chloride (0.9 % Sodium Chloride Flush 3 Ml [facility]) [facility] Last Admin: 07/30/23 08:16 Dose: 3 ml Home Medications Medication Instructions Recorded Confirmed Last Taken Type atenolol 50 mg tablet 50 mg PO DAILY 03/31/22 07/29/23 07/29/23 History atorvastatin 20 mg tablet 20 mg PO BEDTIME 03/31/22 07/29/23 07/28/23 History calcium carbonate 600 mg calcium 600 mg PO DAILY 03/31/22 07/29/23 07/29/23 History (1,500 mg) tablet (Calcium) multivitamin 1 tab PO DAILY 03/31/22 07/29/23 07/29/23 History aspirin 81 mg chewable tablet 81 mg PO DAILY 07/29/23 07/29/23 07/29/23 History atenolol 50 mg tablet 25 mg PO BEDTIME 07/29/23 07/29/23 07/28/23 History Physical Exam 2 Vital Signs: Vital Signs: Last Vital Signs Temp 97.5 F 07/30/23 07:50 Pulse 61 07/30/23 07:50 Resp 24 H 07/30/23 07:50 BP 138/74 07/30/23 07:50 Pulse Ox 93 07/30/23 07:50 O2 Del Method Nasal Cannula 07/30/23 07:50 O2 Flow Rate 4 07/30/23 07:50 BMI result Body Mass Index 15.5 Const: General: comfortable and no acute distress O rientation/consciousness: patient oriented x3 HEENT: Other: Unremarkable Head: Yes normal to inspection Neck: Neck: Yes normal visual inspection Chest: Chest palpation & inspection: normal inspection of the chest Resp: Auscultation: clear to auscultation bilaterally Cardio: Palpation: normal PMI Heart sounds: S1 normal heart sound present, S2 normal heart sound present, no gallops, Murmur heart sound present systolic II/ and at the right sternal border and no rubs GI: Palpation (GI): Soft to palpation Back/Spine/Pelvis: Other: unremarkable Skin: General skin exam: no rashes or lesions noted Neuro: General: patient oriented x3 Extrem: General: Yes normal to inspection Psych: Mental Status: mental status grossly normal Objective Labs and Meds 07/29/23 11:21 07/30/23 06:57 Lab results: Laboratory Results - last 24 hr 07/29/23 07/29/23 07/30/23 11:21 13:54 06:57 WBC 7.4 RBC 5.27 Hgb 15.1 Hct 45.7 MCV 86.7 MCH 28.7 MCHC 33.0 RDW 14.3 Plt Count 148 L MPV 11.5 Immature Gran % (Auto) 0.4 Neut % (Auto) 46.9 Lymph % (Auto) 38.5 [place] % (Auto) 9.2 Eos % (Auto) 3.8 Baso % (Auto) 1.2 Lymph # (Auto) 2.8 [place] # (Auto) 0.7 Eos # (Auto) 0.3 Baso # (Auto) 0.1 Abs Immat Gran (auto) 0.03 Absolute Neuts (auto) 3.5 Absolute Nucleated RBC 0.000 Nucleated RBC % (auto) 0.0 Hold Purple Top SEE NOTE PT 13.3 INR 1.1 APTT 53.5 H Sodium 140 142 Potassium 4.4 4.3 Chloride 107 107 Carbon Dioxide 27 26 Anion Gap 10 L 13 BUN 17 H 14 Creatinine 1.13 0.95 Estim Creat Clear Calc 29.5 35.1 Estimated GFR > 60 > 60 POC Glucose Random Glucose 98 96 Calcium 9.8 9.2 D Magnesium 2.5 Total Bilirubin 0.4 AST 57 H ALT 55 H Alkaline Phosphatase 71 Troponin I High Sens 4.5 B-Natriuretic Peptide 78 Total Protein 8.1 H Albumin 4.2 Lipase 21 Urine Color Dark Yellow Urine Appearance Clear Urine pH 6.5 Ur Specific [place] 1.010 Urine Protein Negative Urine Glucose (UA) Negative Urine Ketones Negative Urine Blood Large (3+) H Urine Nitrite Negative Ur Leukocyte Esterase Negative Urine RBC >20 H Urine WBC 0-5 Ur Squamous Epith Cells 0-2 Urine Bacteria None Seen Hyaline Casts 0-2 07/30/23 07:26 WBC RBC Hgb Hct MCV MCH MCHC RDW Plt Count MPV Immature Gran % (Auto) Neut % (Auto) Lymph % (Auto) [place] % (Auto) Eos % (Auto) Baso % (Auto) Lymph # (Auto) [place] # (Auto) Eos # (Auto) Baso # (Auto) Abs Immat Gran (auto) Absolute Neuts (auto) Absolute Nucleated RBC Nucleated RBC % (auto) Hold Purple Top PT INR APTT Sodium Potassium Chloride Carbon Dioxide Anion Gap BUN Creatinine Estim Creat Clear Calc Estimated GFR POC Glucose 105 Random Glucose Calcium Magnesium Total Bilirubin AST ALT Alkaline Phosphatase Troponin I High Sens B-Natriuretic Peptide Total Protein Albumin Lipase Urine Color Urine Appearance Urine pH Ur Specific [place] Urine Protein Urine Glucose (UA) Urine Ketones Urine Blood Urine Nitrite Ur Leukocyte Esterase Urine RBC Urine WBC Ur Squamous Epith Cells Urine Bacteria Hyaline Casts ECG Interpretation: EKG with sinus rhythm at 68/Min; SC prolongation to 308 millisecond; nonspecific intraventricular conduction defect. Imaging Radiologist's impression: Impressions Chest X-Ray 07/29/23 11:40 IMPRESSION: Unremarkable chest exam. Assessment and Plan (1) Syncope: Qualifiers: Syncope type: unspecified Qualified Code(s): R55 - Syncope and collapse Status: Acute (2) First degree heart block: Status: Acute Plan Syncope; aortic valve murmur on auscultation; SC prolongation on EKG; no overt findings on telemetry. Episode could be related to exertion, hypothermia, possible aortic stenosis; high-grade heart block possible but less likely and no evidence of same either. We can get an echocardiogram for cardiac assessment. There is no evidence of ACS based on troponins. Will follow-up with you. Discussed with . Procedures Date of Service Date of Service: 07/30/23
--- NOTE | 2023-07-30 12:31 | P.PNIM_ITS ---
Subjective Subjective Date of Service: 07/30/23 Interval History: Being followed for syncope Patient denies lightheadedness or dizziness, denies chest pain, no palpitations eating breakfast with no nausea no vomiting no abdominal pain, no acute events overnight, tele monitor showing mobitz type 1 block Review of Systems All other system reviewed and negative. Physical Exam 2 Vital Signs: Vital Signs: Last Vital Signs Temp 96.7 F L 07/30/23 12:00 Pulse 76 07/30/23 12:00 Resp 20 07/30/23 12:00 BP 127/60 07/30/23 12:00 Pulse Ox 93 07/30/23 12:00 O2 Del Method Room Air 07/30/23 12:00 O2 Flow Rate 4 07/30/23 07:50 BMI result Body Mass Index 15.5 Const: Other: General awake alert x3, resting comfortably in no acute distress. Neck is supple no JVD. CVS regular rate rhythm, systolic murmur Respiratory lungs clear to auscultation, no respiratory distress, no wheeze, no rhonchi. Gastrointestinal abdomen soft, non tender, bowel sounds audible, no guarding , no rigidity. Extremities no edema. Neuro nonfocal Skin no rash Psych appropriate affect Objective Data Active Medications Acetaminophen (Acetaminophen 325 Mg Tablet) 650 mg PO Q6H PRN PRN Reason: Pain, Mild (Pain Scale 1-3) Amlodipine Besylate (Amlodipine Besylate 5 Mg Tablet) 5 mg PO DAILY [facility]; Protocol Last Admin: 07/30/23 08:15 Dose: 5 mg Documented By: TONE Aspirin (Aspirin 81 Mg Tab.Chew) 81 mg PO DAILY [facility] Last Admin: 07/30/23 08:16 Dose: 81 mg Documented By: TONE Atorvastatin Calcium (Atorvastatin Calcium 20 Mg Tablet) 20 mg PO BEDTIME [facility] Last Admin: 07/29/23 21:28 Dose: 20 mg Documented By: ESTRADA Benzonatate (Benzonatate 100 Mg Capsule) 100 mg PO TID PRN PRN Reason: Cough Docusate Sodium (Docusate Sodium 100 Mg Capsule) 100 mg PO DAILY PRN PRN Reason: Constipation Enoxaparin Sodium (Enoxaparin Sodium 30 Mg/0.3 Ml Syringe) 30 mg SUBCUT Q24H [facility] Last Admin: 07/29/23 15:05 Dose: 30 mg Documented By: ANN Melatonin (Melatonin 3 Mg Tablet) 6 mg PO BEDTIME PRN PRN Reason: Insomnia Multivitamins/Vitamin C (Multivitamin Tablet) 1 tab PO DAILY [facility] Last Admin: 07/30/23 08:15 Dose: 1 tab Documented By: TONE Ondansetron HCl (Ondansetron Hcl 4 Mg/2 Ml Vial) 4 mg IVPUSH Q8H PRN PRN Reason: Nausea and Vomiting Sodium Chloride (0.9 % Sodium Chloride Flush 3 Ml Syringe) 3 ml IVFLUSH QSHIFT [facility] Last Admin: 07/30/23 08:16 Dose: 3 ml Documented By: TONE Labs 07/29/23 11:21 07/30/23 06:57 Labs: Laboratory Results - last 24 hr 07/29/23 07/30/23 07/30/23 13:54 06:57 07:26 Hold Purple Top SEE NOTE Anion Gap 13 Estim Creat Clear Calc 35.1 Estimated GFR > 60 POC Glucose 105 Random Glucose 96 Calcium 9.2 D Magnesium 2.5 Urine Color Dark Yellow Urine Appearance Clear Urine pH 6.5 Ur Specific [place] 1.010 Urine Protein Negative Urine Glucose (UA) Negative Urine Ketones Negative Urine Blood Large (3+) H Urine Nitrite Negative Ur Leukocyte Esterase Negative Urine RBC >20 H Urine WBC 0-5 Ur Squamous Epith Cells 0-2 Urine Bacteria None Seen Hyaline Casts 0-2 Assessment and Plan (1) First degree heart block: Status: Acute (2) Mobitz (type) I (Wenckebach's) atrioventricular block: Status: Acute (3) Syncope: Status: Acute (4) ABEBE on CPAP: Status: Acute Plan 88-year-old male with a PMH significant for?HTN, HLD, ABEBE on CPAP who presents to the ED with?two syncopal episodes in the past 24 hours. Pt will be admitted to the hospital under observation for further workup for syncopal episodes. Syncopal episodes s/p 2 episodes of syncope 1st episode after exertion. Tele monitor showing Mobitz type 1 block/prolonged ND/bradycardia Normal orthostatic blood pressures, normal troponin, no history of coronary artery disease, no seizure-like activity, normal neuro exam, normal blood sugars Status post IV fluids, hold atenolol Check echocardiogram noted to have systolic murmur Seen by cardiology, they recommend to continue tele monitor and follow echo. HTN Atenolol on hold as above placed on amlodipine 5 mg stable blood pressure Right thigh pain/tightness Chronic, though worse after fall yesterday while snow blowing, continue analgesics, seen by PT , had no thigh pain today they recommend home with home PT when medically cleared ABEBE CPAP at nighttime HLD Continue statin Full Code DVT Prophylaxis: Lovenox Patient admitted to the hospital for further workup of multiple syncopal episodes requiring cardiac workup, and monitoring. Quality Stroke Does the patient have a stroke diagnosis?: No VTE Prior VTE?: No VTE Risk Level:: Medical - moderate - high VTE Device Contraindication: Treatment Not Indicated VTE Drug Contraindication: N/A - Med Ordered
[2023-07-30] MEDS: Enoxaparin Sodium 30 MG/0.3 ML SYRINGE SUBCUT (15:21)
--- NOTE | 2023-07-30 15:37 | MHC.CM.PN ---
IMM 07/30/23, CM MET W/PT AND DTR/HCP KIN AT BEDSIDE, PT REPORTS HE LIVES ALONE, IS INDEP W/ALL CARE HOWEVER DOES USE A CPAP, ROLLATER WALKER AND HAS AN ADDITIONAL 4WHEELED WALKER, GRAB BARS IN EVERY BATHROOM, AND RAILING COMING INTO HOUSE, PT HAS 5-6 STEPS TO GET INTO HOUSE. PT HAS NO HOME SERVICES AND PT'S DTR IS INTERESTED IN HOME PT FOR PT, PT/DTR ARE INTERESTED IN HOME PT FOR PT AND REFERRAL SENT TO [facility] PER REQUEST, NO PREFERENCES AND AGREEABLE TO ANY [facility] IF [facility] UNABLE TO ACCOMMODATE. PT FULLY COVID VACCED EXCEPT THIS YEARS BOOSTER, PT REPORTS HIS PCP IS TRUMAN WHALEY AND DTR KIN IS HCP AND COPY REQUESTED FROM [facility].
[2023-07-30] MEDS: Atorvastatin Calcium 20 MG TABLET PO (22:41)
[2023-07-31 00:25] VITALS: PULSE 61; RESP 18; O2SAT 93
[2023-07-31 03:18] VITALS: BP 148/80; PULSE 64; RESP 18; TEMP 36.3; O2SAT 94
[2023-07-31 08:00] VITALS: BP 150/67; PULSE 65; RESP 19; TEMP 36.2; O2SAT 95
[2023-07-31] MEDS: Multivitamin TABLET 1 TAB PO (10:04)
[2023-07-31] MEDS: Aspirin 81 MG TAB.CHEW PO (10:04)
[2023-07-31] MEDS: amLODIPine Besylate 5 MG TABLET PO (10:04)
[2023-07-31] MEDS: 0.9 % Sodium Chloride Flush 3 ML SYRINGE IVFLUSH (10:04)
[2023-07-31 11:06] VITALS: BP 143/66; PULSE 69; RESP 20; TEMP 36.2; O2SAT 93
--- NOTE | 2023-07-31 11:48 | P.PNIM_ITS ---
Subjective Subjective Date of Service: 07/31/23 Interval History: Being followed for syncope Patient denies lightheadedness or dizziness, denies chest pain, no palpitations eating breakfast with no nausea no vomiting no abdominal pain, no acute events overnight, tele monitor showing mobitz type 1 block Review of Systems All other system reviewed and negative. Physical Exam 2 Vital Signs: Vital Signs: Last Vital Signs Temp 97.1 F 07/31/23 11:06 Pulse 69 07/31/23 11:06 Resp 20 07/31/23 11:06 BP 143/66 H 07/31/23 11:06 Pulse Ox 93 07/31/23 11:06 O2 Del Method Room Air 07/31/23 11:06 O2 Flow Rate 94 07/31/23 11:06 BMI result Body Mass Index 15.5 Appearing in no acute distress lung sounds are clear to auscultation heart regular rate rhythm, clear S1, S2 positive bowel sounds, abdomen is soft, nontender neuro patient is alert x3, no focal deficits Objective Data Active Medications Acetaminophen (Acetaminophen 325 Mg Tablet) 650 mg PO Q6H PRN PRN Reason: Pain, Mild (Pain Scale 1-3) Amlodipine Besylate (Amlodipine Besylate 5 Mg Tablet) 5 mg PO DAILY [facility]; Protocol Last Admin: 07/31/23 10:04 Dose: 5 mg Documented By: VIKY Aspirin (Aspirin 81 Mg Tab.Chew) 81 mg PO DAILY [facility] Last Admin: 07/31/23 10:04 Dose: 81 mg Documented By: VIKY Atorvastatin Calcium (Atorvastatin Calcium 20 Mg Tablet) 20 mg PO BEDTIME [facility] Last Admin: 07/30/23 22:41 Dose: 20 mg Documented By: HERMINIA Benzonatate (Benzonatate 100 Mg Capsule) 100 mg PO TID PRN PRN Reason: Cough Docusate Sodium (Docusate Sodium 100 Mg Capsule) 100 mg PO DAILY PRN PRN Reason: Constipation Enoxaparin Sodium (Enoxaparin Sodium 30 Mg/0.3 Ml Syringe) 30 mg SUBCUT Q24H [facility] Last Admin: 07/30/23 15:21 Dose: 30 mg Documented By: TONE Melatonin (Melatonin 3 Mg Tablet) 6 mg PO BEDTIME PRN PRN Reason: Insomnia Multivitamins/Vitamin C (Multivitamin Tablet) 1 tab PO DAILY [facility] Last Admin: 07/31/23 10:04 Dose: 1 tab Documented By: VIKY Ondansetron HCl (Ondansetron Hcl 4 Mg/2 Ml Vial) 4 mg IVPUSH Q8H PRN PRN Reason: Nausea and Vomiting Sodium Chloride (0.9 % Sodium Chloride Flush 3 Ml Syringe) 3 ml IVFLUSH QSHIFT GRISELDA Last Admin: 07/31/23 10:04 Dose: 3 ml Documented By: VIKY Labs 07/29/23 11:21 07/30/23 06:57 Assessment and Plan (1) First degree heart block: Status: Acute (2) Mobitz (type) I (Wenckebach's) atrioventricular block: Status: Acute (3) Syncope: Status: Acute (4) ABEBE on CPAP: Status: Acute Plan 88-year-old male with a PMH significant for?HTN, HLD, ABEBE on CPAP who presents to the ED with?two syncopal episodes in the past 24 hours. Pt will be admitted to the hospital under observation for further workup for syncopal episodes. Syncopal episodes s/p 2 episodes of syncope, 1st episode after exertion. Tele monitor showing Mobitz type 1 block/prolonged NV/bradycardia likey from BB no orthostasis, normal troponin, no history of coronary artery disease, no seizure-like activity, normal neuro exam, normal blood sugars Status post IV fluids normal echo Seen by cardiology> seems like BB related. Stop atenolol, will need o/p holter monitor EEG results pending continue to monitor on telemetry HTN Atenolol on hold as above placed on amlodipine 5 mg stable blood pressure Right thigh pain/tightness Chronic, though worse after fall yesterday while snow blowing continue analgesics seen by PT, had no thigh pain today they recommend home with home PT when medically cleared ABEBE CPAP at nighttime HLD Continue statin Full Code Attending Dr. Deshpande DVT Prophylaxis: Lovenox Patient admitted to the hospital for further workup of multiple syncopal episodes requiring cardiac workup, and monitoring. Quality Stroke Does the patient have a stroke diagnosis?: No VTE Prior VTE?: No VTE Risk Level:: Medical - moderate - high VTE Device Contraindication: Treatment Not Indicated VTE Drug Contraindication: N/A - Med Ordered
--- NOTE | 2023-07-31 12:49 | PM.PNCARD ---
Subjective Subjective Date of Service: 07/31/23 Interval history: He states he is feeling fine. No new complaints. Review of Systems Review of Systems Yes all other systems are reviewed and are negative Constitutional: Reports as per HPI and Reports no additional constitutional complaints Eyes: Reports as per HPI and Denies no additional eye complaints Denies system reviewed and no additional complaints, except as documented and Reports as per HPI Cardiovascular: Reports as per HPI, Reports no additional cardiovascular complaints, Denies acrocyanosis, Denies cool extremities, Denies chest pain, Denies leg edema, Denies lightheadedness, Denies palpitations and Denies dyspnea Respiratory: Reports as per HPI, Denies no additional respiratory complaints and Denies dyspnea Gastrointestinal: Reports as per HPI and Denies no additional gastrointestinal complaints Genitourinary: Reports no additional male genitourinary complaints and Reports as per HPI Musculoskeletal: Reports no additional musculoskeletal complaints and Reports as per HPI Skin/Breast: Reports system reviewed and no additional complaints, except as docu Reports system reviewed and no additional complaints, except as documented and Reports as per HPI Psychiatric: Reports no additional psychiatric complaints and Reports as per HPI Endocrine: Reports no additional endocrine complaints, Reports as per HPI and Denies palpitations Hematologic/Lymphatic: Reports no additional hematologic/lymphatic complaints and Reports as per HPI Allergic/Immunologic: Reports no additional allergic/immunologic complaints and Reports as per HPI Physical Exam Vital Signs: Last Vital Signs Temp 97.1 F 07/31/23 11:06 Pulse 69 07/31/23 11:06 Resp 20 07/31/23 11:06 BP 143/66 H 07/31/23 11:06 Pulse Ox 93 07/31/23 11:06 O2 Del Method Room Air 07/31/23 11:06 O2 Flow Rate 94 07/31/23 11:06 BMI result Body Mass Index 15.5 Const General: comfortable and no acute distress Orientation/consciousness: patient oriented x3 HEENT Other: Unremarkable Head: Yes normal to inspection Neck Neck: Yes normal visual inspection Chest Chest palpation & inspection: normal inspection of the chest Resp Auscultation: clear to auscultation bilaterally Cardio Palpation: normal PMI Heart sounds: S1 normal heart sound present, S2 normal heart sound present, no gallops, Murmur heart sound present systolic II/ and at the right sternal border and no rubs GI Palpation (GI): Soft to palpation Back/Spine/Pelvis Other: unremarkable Skin General skin exam: no rashes or lesions noted Neuro General: patient oriented x3 Extrem General: Yes normal to inspection Psych Mental Status: mental status grossly normal Objective Labs and Meds 07/29/23 11:21 07/30/23 06:57 Progress Note: A&P Assessment and plan (1) Syncope: Status: Acute (2) First degree heart block: Status: Acute (3) Mobitz (type) I (Wenckebach's) atrioventricular block: Status: Acute (4) HTN (hypertension): Status: Acute Plan Echocardiogram with hyperdynamic LVEF without any obstruction. No significant valvular issues. On telemetry, evidence of Mobitz type 1 second-degree heart block but nothing high grade. No long pauses or significant bradycardia. Otherwise, there is a history of chronically occluded left carotid, followed up at [facility]. At this time, no clear etiology for the syncopal episodes. We can continue monitoring on telemetry for another 24 hours or so. Due to heart block, off atenolol. He is on the amlodipine. Dose can be increased. For the carotid disease, will need to follow up with vascular surgery. Discussed at length with daughter. Discussed with hospitalist. Time Spent With Patient Time: Total time managing care of this patient today 45 minutes. This includes time spent in review of chart, laboratory data, imaging studies, review of telemetry, counseling patient, family, discussion with hospitalist, RN, documentation, coordination of care. Progress Note: Quality Stroke Does the patient have a stroke diagnosis?: No Procedures Date of Service Date of Service: 07/31/23
--- NOTE | 2023-07-31 14:15 | MHC.CM.PN ---
Addendum entered by Luci Denise 08/01/23 15:23: PT MOVED TO ICU [facility] FOLLOWING FOR NEXT DAY SOC [facility] ALSO FOLLOWING FROM PREVIOUS REFERRAL, STILL UNCLEAR IF THEY WOULD BE ABLE TO PROVIDE NEXT DAY SOC Addendum entered by Luci Denise 08/01/23 11:49: [facility] HAS NOT BEEN ABLE TO CONFIRM THEY WILL PROVIDE NEXT DAY SOC REFERRAL SENT TO [facility] Addendum entered by Luci Denise 07/31/23 16:48: CM MET WITH PT AND DAUGHTER, LUCI, AT BEDSIDE THEY EXPRESSED CONCERNS ABOUT PTS NEW BP MEDS AND HAVING HIS BP MONITORED AFTER DC PER DISCUSSION, CM WILL ARRANGE A VNA THAT CAN SEE PT THE DAY AFTER DC A REFERRAL WAS PLACED TO [facility] BY PREVIOUS CM, A REQUEST HAS BEEN SENT TO THEM TO CONFIRM THEY WILL BE ABLE TO PROVIDE NEXT DAY SOC Original Note: EVELIA RECEIVED A CALL FROM PTS DAUGHTER, LUCI, WHO REPORTS SHE IS THE PTS HCP AND WOULD LIKE TO BE THE POINT OF CONTACT. SHE SAYS THE PT SOMETIMES HAS A HARD TIME UNDERSTANDING WHAT HE IS BEING TOLD AND DOES BETTER IF SHE IS THERE TO ASSIST SHE WILL BRING IN A COPY OF THE HCP TODAY
[2023-07-31] MEDS: Enoxaparin Sodium 30 MG/0.3 ML SYRINGE SUBCUT (15:44)
[2023-07-31 16:00] VITALS: BP 146/66; PULSE 60; RESP 20; TEMP 36.4; O2SAT 92
[2023-07-31 20:00] VITALS: BP 128/61; PULSE 67; RESP 20; TEMP 36.2; O2SAT 94
[2023-07-31] MEDS: Atorvastatin Calcium 20 MG TABLET PO (23:13)
[2023-08-01] VITALS (23 sets, daily range): BP systolic 97–147; BP diastolic 30–69; PULSE 27–98; RESP 13–20; TEMP 36–37.1; O2SAT 90–96; BMI 34.2
[2023-08-01] MEDS: amLODIPine Besylate 10 MG TABLET PO (08:48)
[2023-08-01] MEDS: Multivitamin TABLET 1 TAB PO (08:48)
[2023-08-01] MEDS: 0.9 % Sodium Chloride Flush 3 ML SYRINGE IVFLUSH ×2 (08:49→16:20)
[2023-08-01] MEDS: Aspirin 81 MG TAB.CHEW PO (08:49)
--- NOTE | 2023-08-01 10:35 | P.PNCA_ITS ---
Subjective Subjective Date of Service: 08/01/23 Interval history: He states that he is feeling fine. He has had absolutely no dizziness or lightheadedness/presyncope or in fact any cardiac symptoms whatsoever over the last several days. Review of Systems Review of Systems Yes all other systems are reviewed and are negative Constitutional: Reports as per HPI and Reports no additional constitutional complaints Eyes: Reports as per HPI and Denies no additional eye complaints Denies system reviewed and no additional complaints, except as documented and Reports as per HPI Cardiovascular: Reports as per HPI, Reports no additional cardiovascular complaints, Denies acrocyanosis, Denies cool extremities, Denies chest pain, Denies leg edema, Denies lightheadedness, Denies palpitations and Denies dyspnea Respiratory: Reports as per HPI, Denies no additional respiratory complaints and Denies dyspnea Gastrointestinal: Reports as per HPI and Denies no additional gastrointestinal complaints Genitourinary: Reports no additional male genitourinary complaints and Reports as per HPI Musculoskeletal: Reports no additional musculoskeletal complaints and Reports as per HPI Skin/Breast: Reports system reviewed and no additional complaints, except as docu Reports system reviewed and no additional complaints, except as documented and Reports as per HPI Psychiatric: Reports no additional psychiatric complaints and Reports as per HPI Endocrine: Reports no additional endocrine complaints, Reports as per HPI and Denies palpitations Hematologic/Lymphatic: Reports no additional hematologic/lymphatic complaints and Reports as per HPI Allergic/Immunologic: Reports no additional allergic/immunologic complaints and Reports as per HPI Physical Exam Vital Signs: Last Vital Signs Temp 97.0 F 08/01/23 07:54 Pulse 53 08/01/23 07:54 Resp 20 08/01/23 07:54 BP 145/69 H 08/01/23 07:54 Pulse Ox 93 08/01/23 07:54 O2 Del Method Room Air 08/01/23 07:54 O2 Flow Rate 94 07/31/23 11:06 BMI result Body Mass Index 15.5 Const General: comfortable and no acute distress Orientation/consciousness: patient oriented x3 HEENT Other: Unremarkable Head: Yes normal to inspection Neck Neck: Yes normal visual inspection Chest Chest palpation & inspection: normal inspection of the chest Resp Auscultation: clear to auscultation bilaterally Cardio Palpation: normal PMI Heart sounds: S1 normal heart sound present, S2 normal heart sound present, no gallops, Murmur heart sound present systolic II/ and at the right sternal border and no rubs GI Palpation (GI): Soft to palpation Back/Spine/Pelvis Other: unremarkable Skin General skin exam: no rashes or lesions noted Neuro General: patient oriented x3 Extrem General: Yes normal to inspection Psych Mental Status: mental status grossly normal Objective Labs and Meds 07/29/23 11:21 07/30/23 06:57 Progress Note: A&P Assessment and plan (1) Syncope: Status: Acute (2) First degree heart block: Status: Acute (3) Mobitz (type) I (Wenckebach's) atrioventricular block: Status: Acute (4) HTN (hypertension): Status: Acute Plan Echocardiogram with hyperdynamic LVEF without any obstruction. No significant valvular issues. On telemetry, evidence of Mobitz type 1 second-degree heart block but nothing high grade. No long pauses or significant bradycardia. Otherwise, there is a history of chronically occluded left carotid, followed up at [facility]. Findings discussed with patient great detail. At this time, no definitive indication for pacemaker as there are no pauses greater than 3 seconds or high- degree heart block and also patient has had no symptoms since admission. He stated that he would not want a pacemaker unless there is absolute need for the same. Also called daughter and spoke to her in great detail. Explain the findings on telemetry. Explained the fact that he does have second-degree heart block but again he has no associated symptoms and this could very well be chronic. Explained the fact that, there is no evidence of any high-grade heart block or prolonged pauses that could cause syncope during the period of inpatient monitoring. She is extremely concerned about him overall and I tried my best to reassure her and the fact that we are following evidence based guidelines with regard to a question of pacemaker. Also, we ambulated him and he was able to do that without any difficulty and no symptoms and there was a brisk heart rate response. Eventually, we all agree that we will stop his atenolol permanently and start him on different anti hypertensive, currently Norvasc. Blood pressure seems stable. We will arrange a outpatient Holter monitor as soon as able and then evaluate him for any significant heart blocks and if so, then consider permanent pacemaker. In the interim, if any further episodes of dizziness/presyncope at home advised to call 911 immediately. Daughter understands this very well. We also discussed about other devices they can purchase like life Alert extra. She will also look into those things. Discussed with Rosa Torrez. Time Spent With Patient Time: Total time managing care of this patient today 45 minutes. This includes time spent in review of chart, laboratory data, imaging studies, review of telemetry, counseling patient, family, discussion with hospitalist, RN, documentation, coordination of care. Progress Note: Quality Stroke Does the patient have a stroke diagnosis?: No Procedures Date of Service Date of Service: 08/01/23
--- NOTE | 2023-08-01 10:57 | PM.DS ---
DS: Providers Provider Date of Service: 08/01/23 Date of admission: 07/30/23 13:50 Primary care physician: Unknown Physician Consults: 07/29/23 12:17 Consult to Cardiology Stat Consulting Provider: [facility] [place] Cardi[facility] Reason for consultation: syncope x 2 yesterday with exertion Has provider been notified: No 07/29/23 13:49 Consult to Cardiology Routine Consulting Provider: [facility] [place] [facility] Reason for consultation: Syncope, increased 1st degree AV block DS: Diagnosis Discharge Diagnosis (1) Syncope: Status: Acute (2) First degree heart block: Status: Acute (3) Mobitz (type) I (Wenckebach's) atrioventricular block: Status: Acute (4) HTN (hypertension): Status: Acute DS: Summary Hospital Course Hospital Course: History and physical as per admitting provider. Pt is an 88-year-old male with a PMH significant for?HTN, HLD, ABEBE on CPAP who presents to the ED with?two syncopal episodes in the past 24 hours. Yesterday pt was out snowblowing when a passerby in a truck yellow at him if he needed any help. Patient found himself in a snow bank without any clear recollection how he ended up there. Thought that he must have slipped on the ice and falling back into this no back. Denies any prodrome. No lightheadedness or dizziness during this episode. Patient was helped to his feet by the passerby and had no other symptoms other some muscle tightness in his upper right thigh. Today patient was out having breakfast with some friends when had another episode. States he was just talking to people when he felt lightheaded, dizzy, and then ?passed out?. The next thing he remembers is waking up and his friends saying they were taking him to the hospital for further evaluation. Patient does report having lightheadedness and dizziness before episode, but no other symptoms. Denies chest pain/pressure, palpitations. No headache, acute vision changes. Denies any seizure-like activity. No tongue bite, no incontinence. Patient denies any significant cardiac history, and states he is on atenolol solely for blood pressure control. Reports taking one 50 mg tablet in the morning and a half tablet at night. Has recently started taking magnesium, reports no other medication changes and reports being compliant with his medications. In the ED pt was hypertensive up to 179/76, otherwise vitals WNL. Labs were significant for AST 57, ALT 55, otherwise grossly unremarkable. No leukocytosis. No electrolyte abnormalities. Creatinine 1.13. CXR pending, pelvic similar to previous. EKG demonstrated first-degree AV block with left axis deviation, but no evidence of ST elevations or depressions. First degree AV block has increased significantly since last EKG we have on record from 2019. Pt will be admitted to the hospital under observation for further workup for syncopal episodes. 80-year-old man admitted for syncopal episode at home. He was monitored on telemetry during hospitalization which showed Mobitz type 1 block with lowest heart rate in the 40s. Patient completely asymptomatic. No further episodes of syncope during hospitalization. Normal orthostatic blood pressures, normal troponin, no seizure activity, normal neuro exam, normal blood sugars. Echocardiogram showed EF of 70% with no obvious valvular pathology. He does have a history of carotid stenosis, had carotid endarterectomy more than 10 years ago. Was seen by vascular surgery at [facility] in April of 2023 no recommendation for any surgical intervention. Seen and evaluated by Cardiology, beta-jose stopped, plan is for Holter monitor outpatient. He was started on amlodipine for blood pressure control. Plan is to discharge home with family. Obstructive sleep apnea. Continue CPAP at night Hyperlipidemia. Continue statin Time Attestation Discharge coordination time: Greater than 30 minutes Quality: Safe Use of Opioids Does Pt have an Active Cancer Diagnosis on the Problem List?: No Quality: Stroke Does the patient have a stroke diagnosis?: No Physical Exam Vital Signs: Vital Signs: Last Vital Signs Temp 97.0 F 08/01/23 07:54 Pulse 53 08/01/23 07:54 Resp 20 08/01/23 07:54 BP 145/69 H 08/01/23 07:54 Pulse Ox 93 08/01/23 07:54 O2 Del Method Room Air 08/01/23 07:54 O2 Flow Rate 94 07/31/23 11:06 BMI result Body Mass Index 15.5 Appearing in no acute distress head is normocephalic atraumatic eyes pupils are PERRLA sclera is anicteric mouth throat mucous membranes are intact and moist neck is supple no lymphadenopathy, no JVD noted lung sounds are clear to auscultation heart regular rate rhythm, clear S1, S2 positive bowel sounds, abdomen is soft, nontender neuro patient is alert x3, no focal deficits Discharge Plan Discharge Anticipated Discharge Date/Time: 08/01/23 10:55 Patient Disposition: Home, Self-Care Discharge Diagnosis: Syncope Mobitz type 1 Bradycardia Referrals: Wander Berrios MD [Physician] - None Discharge Medications: New amlodipine 10 mg Tablet 10 mg PO DAILY Qty: 30 0RF Protocol: Hold for SBP< HOLD for SBP < : 90 Continued aspirin 81 mg Tablet,Chewable 81 mg PO DAILY atorvastatin 20 mg tablet 20 mg PO BEDTIME multivitamin Tablet 1 tab PO DAILY calcium carbonate [Calcium 600] 600 mg calcium (1,500 mg) tablet 600 mg PO DAILY Discontinued atenolol 50 mg tablet 25 mg PO BEDTIME atenolol 50 mg tablet 50 mg PO DAILY Discharge Orders: Discharge Order (Routine); Ordered 08/01/23 Ordered By: Rosa Torrez Diet: Advance to usual diet Activity on Discharge: As tolerated Stand Alone Forms: Patient Portal Discharge page Care Plan Goals: Your atenolol was stopped. You have been started on a new medication for your blood pressure called Amlodipine Plan is for Holter monitor placement through the cardiology office Health Concerns: Syncope Mobitz type 1 Bradycardia Plan of Treatment: Follow-up with primary care provider as needed Follow-up with cardiology for Holter monitor placement Take all medications as prescribed Assessment: See discharge summary
--- NOTE | 2023-08-01 11:53 | P.F2F_ITS ---
Service Date Service Date: 08/01/23 Encounter Date of encounter: 08/01/23 Reasons for Services Signs and symptoms assessed: Bradycardia hypertension Reason for care home: CV/CP assess and/or care Homebound: Leaving the home is medically contraindicated at this time without the asist of a device and/or another person due th the listed conditions above and below. Reason homebound: unsteady gait / fall risk Certification: Based on the above findings, I certify that this patient is confined to the home and needs intermittent care home care, physical therapy and/or speech therapy, or continues to need occupational therapy. The patient is under my car e, and I have initiated the establishment of the plan of care. The patient will be followed by a physician who will periodically review the plan of care. Time Spent With Patient Time: Total time managing care of this patient today ____ minutes.
--- NOTE | 2023-08-01 14:20 | PM.EVENT ---
Event Note Date of Service: 08/01/23 Event Note: RN called stated that patient fell in his room. Patient stated that he was getting dressed and he tripped over his socks. He hit his face and broke his glasses. He denied LOC, chest pain, nausea, vomiting, blurred vision, pain. Fall was unwitnessed therefore will order brain CT. Check neuros Q2 hours x4, place back on tele Time Spent With Patient Time: Total time managing care of this patient today ____ minutes.
[2023-08-01] MEDS: DOPamine HCL/D5W 400 MG/250 ML PLAST..BAG 8.68 MG IVCONT (14:40)
--- NOTE | 2023-08-01 14:51 | HO.ANESPROP2 ---
HPI - Anesthesia Eval Consult details Narrative: AV block PMFSH Active Problems Active Problems: All Active Problems (Updated 07/31/23 @ 12:50 by Wander Berrios MD) HTN (hypertension) (Acute) Mobitz (type) I (Wenckebach's) atrioventricular block (Acute) First degree heart block (Acute) Syncope (Acute) Chest crackles (Acute) ABEBE on CPAP (Acute) Wheezing (Acute) Past Medical History Medical History (Updated 07/31/23 @ 12:50 by Wander Berrios MD) HLD (hyperlipidemia) HTN (hypertension) ABEBE on CPAP Family History Family history of problems with anesthesia: No Surgical History History of Problems with Anesthesia: No Social History Social History Patient Tobacco Use Status: Former Tobacco user Tobacco use type: Cigarette Years Smoked: 20 years Smoked in Last 30 Days: No Use of substances other than those prescribed or required for medical reasons: No Currently Displaying Signs/Symptoms of Drug Intoxication Withdrawal: No Advance Directives: No Advance Directives Information Provided: Yes Nutrition Risks: No Nutritional Risk service: Yes Meds Allergies Allergy/AdvReac Type Severity Reaction Status Date / Time amoxicillin [From Augmentin] Allergy Severe Rash Verified 07/29/23 11:07 clavulanic acid Allergy Severe Rash Verified 07/29/23 11:07 [From Augmentin] clindamycin Allergy Severe Hives Verified 07/29/23 11:07 levofloxacin [From Levaquin] Allergy Severe Headache Verified 07/29/23 11:07 Active Medications: Current Medications Acetaminophen (Acetaminophen 325 Mg Tablet) 650 mg PO Q6H PRN PRN Reason: Pain, Mild (Pain Scale 1-3) Amlodipine Besylate (Amlodipine Besylate 10 Mg Tablet) 10 mg PO DAILY [facility]; Protocol Last Admin: 08/01/23 08:48 Dose: 10 mg Aspirin (Aspirin 81 Mg Tab.Chew) 81 mg PO DAILY [facility] Last Admin: 08/01/23 08:49 Dose: 81 mg Atorvastatin Calcium (Atorvastatin Calcium 20 Mg Tablet) 20 mg PO BEDTIME [facility] Last Admin: 07/31/23 23:13 Dose: 20 mg Atropine Sulfate (Atropine Sulfate 1 Mg/Ml Vial) 0.5 mg SUBCUT ONCE PRN PRN Reason: bradycardia Benzonatate (Benzonatate 100 Mg Capsule) 100 mg PO TID PRN PRN Reason: Cough Docusate Sodium (Docusate Sodium 100 Mg Capsule) 100 mg PO DAILY PRN PRN Reason: Constipation Enoxaparin Sodium (Enoxaparin Sodium 30 Mg/0.3 Ml Syringe) 30 mg SUBCUT Q24H [facility] Last Admin: 07/31/23 15:44 Dose: 30 mg Melatonin (Melatonin 3 Mg Tablet) 6 mg PO BEDTIME PRN PRN Reason: Insomnia Multivitamins/Vitamin C (Multivitamin Tablet) 1 tab PO DAILY [facility] Last Admin: 08/01/23 08:48 Dose: 1 tab Ondansetron HCl (Ondansetron Hcl 4 Mg/2 Ml Vial) 4 mg IVPUSH Q8H PRN PRN Reason: Nausea and Vomiting Sodium Chloride (0.9 % Sodium Chloride Flush 3 Ml Syringe) 3 ml IVFLUSH QSHIFT [facility] Last Admin: 08/01/23 08:49 Dose: 3 ml Home Medications Medication Instructions Recorded Confirmed Last Taken Type atorvastatin 20 mg tablet 20 mg PO BEDTIME 03/31/22 07/29/23 07/28/23 History calcium carbonate 600 mg calcium 600 mg PO DAILY 03/31/22 07/29/23 07/29/23 History (1,500 mg) tablet (Calcium) multivitamin 1 tab PO DAILY 03/31/22 07/29/23 07/29/23 History aspirin 81 mg chewable tablet 81 mg PO DAILY 07/29/23 07/29/23 07/29/23 History Exam Height,Weight and Vital Signs: Height 5 ft 8 in Weight 46.266 kg Last Vital Signs Temp 96.8 F 08/01/23 11:09 Pulse 53 08/01/23 11:09 Resp 20 08/01/23 11:09 BP 124/68 08/01/23 11:09 Pulse Ox 93 08/01/23 11:09 O2 Del Method Room Air 08/01/23 11:09 O2 Flow Rate 94 07/31/23 11:06 Pertinent Lab Results Pertinent Lab Results: Laboratory Tests 07/29/23 07/29/23 07/30/23 11:21 13:54 06:57 WBC 7.4 RBC 5.27 Hgb 15.1 Hct 45.7 MCV 86.7 MCH 28.7 MCHC 33.0 RDW 14.3 Plt Count 148 L MPV 11.5 Immature Gran % (Auto) 0.4 Neut % (Auto) 46.9 Lymph % (Auto) 38.5 [place] % (Auto) 9.2 Eos % (Auto) 3.8 Baso % (Auto) 1.2 Lymph # (Auto) 2.8 [place] # (Auto) 0.7 Eos # (Auto) 0.3 Baso # (Auto) 0.1 Abs Immat Gran (auto) 0.03 Absolute Neuts (auto) 3.5 Absolute Nucleated RBC 0.000 Nucleated RBC % (auto) 0.0 Hold Purple Top SEE NOTE PT 13.3 INR 1.1 APTT 53.5 H Sodium 140 142 Potassium 4.4 4.3 Chloride 107 107 Carbon Dioxide 27 26 Anion Gap 10 L 13 BUN 17 H 14 Creatinine 1.13 0.95 Estim Creat Clear Calc 29.5 35.1 Estimated GFR > 60 > 60 POC Glucose Random Glucose 98 96 Calcium 9.8 9.2 D Magnesium 2.5 Total Bilirubin 0.4 AST 57 H ALT 55 H Alkaline Phosphatase 71 Troponin I High Sens 4.5 B-Natriuretic Peptide 78 Total Protein 8.1 H Albumin 4.2 Lipase 21 Urine Color Dark Yellow Urine Appearance Clear Urine pH 6.5 Ur Specific [place] 1.010 Urine Protein Negative Urine Glucose (UA) Negative Urine Ketones Negative Urine Blood Large (3+) H Urine Nitrite Negative Ur Leukocyte Esterase Negative Urine RBC >20 H Urine WBC 0-5 Ur Squamous Epith Cells 0-2 Urine Bacteria None Seen Hyaline Casts 0-2 07/30/23 07:26 WBC RBC Hgb Hct MCV MCH MCHC RDW Plt Count MPV Immature Gran % (Auto) Neut % (Auto) Lymph % (Auto) [place] % (Auto) Eos % (Auto) Baso % (Auto) Lymph # (Auto) [place] # (Auto) Eos # (Auto) Baso # (Auto) Abs Immat Gran (auto) Absolute Neuts (auto) Absolute Nucleated RBC Nucleated RBC % (auto) Hold Purple Top PT INR APTT Sodium Potassium Chloride Carbon Dioxide Anion Gap BUN Creatinine Estim Creat Clear Calc Estimated GFR POC Glucose 105 Random Glucose Calcium Magnesium Total Bilirubin AST ALT Alkaline Phosphatase Troponin I High Sens B-Natriuretic Peptide Total Protein Albumin Lipase Urine Color Urine Appearance Urine pH Ur Specific [place] Urine Protein Urine Glucose (UA) Urine Ketones Urine Blood Urine Nitrite Ur Leukocyte Esterase Urine RBC Urine WBC Ur Squamous Epith Cells Urine Bacteria Hyaline Casts Airway Mallampati Class: II TM Dist: >3cm Neck ROM: Full Loose/Missing/Broken Teeth: No Heart: rrr Lungs: cta Assessment and Plan Assessment Anesthesia Assessment: Anesthesia Plan Discussed and Chart Reviewed Final Anesthetic Review Family History of Problems with Anesthesia: No History of Problems with Anesthesia: No NPO: Yes ASA Class: III and Emergency Final Preanesthetic Review: No Changes in Pt Med Stat, Meds/Allgs Chart Reviewed, Consent Obtained/Reviewed and Anes Risks/Benef Reviewed Patient Risk: High Procedure Risk: Low Anesthetic Plan Anesthetic Plan: GA Disposition: Standard PACU
--- NOTE | 2023-08-01 14:51 | PM.EVENT ---
Event Note Date of Service: 08/01/23 Event Note: I was called by Rosa Torrez as patient had a fall and then EKG showed complete HB. I immediately arrived by bedside and assessed patient. He is oriented, able to answer questions. He states that he is feeling ok. No chest pain or other symptoms. EKG with complete HB; V rate 28/min. Perfusing well; BP 130/60s. We will plan on urgent pacemaker placement today. Informed who is arriving shortly. Tx to ICU in interim. Start Dopamine drip. Pacer pads. Rapid response called to expedite care. Time Spent With Patient Time: Total time managing care of this patient today ____ minutes.
--- NOTE | 2023-08-01 14:53 | PM.EVENT ---
Event Note Date of Service: 08/01/23 Time Spent With Patient Time: Total time managing care of this patient today ____ minutes.
--- NOTE | 2023-08-01 15:13 | P.PNIM_ITS ---
Subjective Subjective Date of Service: 08/01/23 Interval History: Follow up syncope, bradycardia no chest pain, sob, nausea, vomiting Had a fall just prior to being discharged tx to ICU for severe bradycardia Review of Systems All other system reviewed and negative. Physical Exam 2 Vital Signs: Vital Signs: Last Vital Signs Temp 96.8 F 08/01/23 11:09 Pulse 53 08/01/23 11:09 Resp 20 08/01/23 11:09 BP 124/68 08/01/23 11:09 Pulse Ox 93 08/01/23 11:09 O2 Del Method Room Air 08/01/23 11:09 O2 Flow Rate 94 07/31/23 11:06 BMI result Body Mass Index 15.5 Appearing in no acute distress lung sounds are clear to auscultation heart regular rate rhythm, clear S1, S2 positive bowel sounds, abdomen is soft, nontender neuro patient is alert x3, no focal deficits Objective Data Active Medications Acetaminophen (Acetaminophen 325 Mg Tablet) 650 mg PO Q6H PRN PRN Reason: Pain, Mild (Pain Scale 1-3) Aspirin (Aspirin 81 Mg Tab.Chew) 81 mg PO DAILY [facility] Last Admin: 08/01/23 08:49 Dose: 81 mg Documented By: VIKY Atorvastatin Calcium (Atorvastatin Calcium 20 Mg Tablet) 20 mg PO BEDTIME [facility] Last Admin: 07/31/23 23:13 Dose: 20 mg Documented By: HERMINIA Atropine Sulfate (Atropine Sulfate 1 Mg/Ml Vial) 0.5 mg SUBCUT ONCE PRN PRN Reason: bradycardia Benzonatate (Benzonatate 100 Mg Capsule) 100 mg PO TID PRN PRN Reason: Cough Docusate Sodium (Docusate Sodium 100 Mg Capsule) 100 mg PO DAILY PRN PRN Reason: Constipation Enoxaparin Sodium (Enoxaparin Sodium 30 Mg/0.3 Ml Syringe) 30 mg SUBCUT Q24H [facility] Last Admin: 07/31/23 15:44 Dose: 30 mg Documented By: VIKY Fentanyl (Fentanyl Citrate/Pf 100 Mcg/2 Ml Vial) 25 mcg IVPUSH Q5M PRN; Protocol PRN Reason: Pain, Moderate(Pain Scale 4-6) Melatonin (Melatonin 3 Mg Tablet) 6 mg PO BEDTIME PRN PRN Reason: Insomnia Multivitamins/Vitamin C (Multivitamin Tablet) 1 tab PO DAILY [facility] Last Admin: 08/01/23 08:48 Dose: 1 tab Documented By: VIKY Ondansetron HCl (Ondansetron Hcl 4 Mg/2 Ml Vial) 4 mg IVPUSH Q8H PRN PRN Reason: Nausea and Vomiting Ondansetron HCl (Ondansetron Hcl 4 Mg/2 Ml Vial) 4 mg IVPUSH ONCE PRN PRN Reason: Nausea and Vomiting Sodium Chloride (0.9 % Sodium Chloride Flush 3 Ml Syringe) 3 ml IVFLUSH QSHIFT [facility] Last Admin: 08/01/23 08:49 Dose: 3 ml Documented By: VIKY Labs 07/29/23 11:21 07/30/23 06:57 Assessment and Plan (1) First degree heart block: Status: Acute (2) Mobitz (type) I (Wenckebach's) atrioventricular block: Status: Acute (3) Syncope: Status: Acute (4) ABEBE on CPAP: Status: Acute Plan 88-year-old male with a PMH significant for?HTN, HLD, ABEBE on CPAP who presents to the ED with?two syncopal episodes in the past 24 hours. Pt will be admitted to the hospital under observation for further workup for syncopal episodes. Patient fell while getting dressed just prior to discharge. When patient placed back on the ekg monitor tech heart rate was noted to be in the 20s but patient remained completely asymptomatic. Fall was unwitnessed but patient denied dizziness, chest pain, shortness breast, loss of consciousness. EKG showed complete heart block. Ironer present during rapid response. Discussed case with cylinder checker for plan to transfer to ICU. Started on dopamine drip. Daughter arrived to hospital, discussed the process for the pacemaker, also present was the president finance company. Fall, likely syncopal in nature patient denied LOC Found to be in complete heart block and transferred to ICU for dopamine drip Plan for pacemaker placement, thoracic surgery team aware Pacer pads on NPO Syncopal episodes s/p 2 episodes of syncope, 1st episode after exertion at home . Tele monitor showing Mobitz type 1 block/prolonged [place]/bradycardia likey from BB no orthostasis, normal troponin, no history of coronary artery disease, no seizure-like activity, normal neuro exam, normal blood sugars Status post IV fluids normal echo Seen by cardiology> seems like BB related. Stop atenolol, will need o/p holter monitor EEG results pending continue to monitor on telemetry HTN Atenolol on hold as above placed on amlodipine 5 mg stable blood pressure Right thigh pain/tightness Chronic, though worse after fall yesterday while snow blowing continue analgesics seen by PT, had no thigh pain today they recommend home with home PT when medically cleared ABEBE CPAP at nighttime HLD Continue statin Full Code Attending Dr. Deshpande DVT Prophylaxis: Lovenox hold in light of pacer placement Quality Stroke Does the patient have a stroke diagnosis?: No VTE Prior VTE?: No VTE Risk Level:: Medical - moderate - high VTE Device Contraindication: Treatment Not Indicated VTE Drug Contraindication: N/A - Med Ordered
[2023-08-01 15:14] LABS: MANUAL DIFF FLAG NO
[2023-08-01] MEDS: Atropine Sulfate 1 MG/ML VIAL 0.4 MG IVPUSH (15:19)
[2023-08-01 15:23] LABS: Basophils Absolute Auto 0.1 X10*3/uL (0.0-0.2); Basophils Percent Auto 0.8 % (0-2); Eosinophils Absolute Auto 0.4 X10*3/uL (0.0-0.4); Eosinophils Percent Auto 3.9 % (0-4); Hematocrit 46.7 % (42.0-52.0); Hemoglobin 15.7 g/dl (14.0-18.0); Imm Gran Abs Auto 0.02 X10*3/uL (0.00-0.03); Imm Gran Pct Auto 0.2 % (0.0-0.4); Lymphocytes Absolute Auto 3.4 X10*3/uL (1.2-4.9); Lymphocytes Percent Auto 35.2 % (20-40); Mean Corpuscular HGB Conc 33.6 g/dl (31.0-36.0); Mean Corpuscular Hemoglobin 29.5 pg (27.0-33.0); Mean Corpuscular Volume 87.6 fL (80.0-98.0); Mean Platelet Volume 11.8 fL (9.4-12.4); Monocytes Absolute Auto 0.8 X10*3/uL (0.1-1.2); Monocytes Percent Auto 8.3 % (2-11); Neutrophils Absolute Auto 4.9 x10*3/uL (2.0-8.3); Neutrophils Percent Auto 51.6 % (45-73); Platelet Count 161 X10*3/uL (160-400); Red Blood Count 5.33 X10*6/uL (4.60-5.80); Red Cell Distribution Width 14.6 % (11.0-16.0); White Blood Count 9.5 X10*3/uL (4.8-10.8)
[2023-08-01 15:30] LABS: Anion Gap 14 (12-20); Blood Urea Nitrogen 19 mg/dL (9-16); Calcium 9.9 mg/dL (8.4-10.2); Carbon Dioxide 23 mmol/L (22-29); Chloride 107 mmol/L (96-108); Estimated Glomerular Filt Rate 41; Glucose Random 138 mg/dL (60-115); Magnesium 2.3 mg/dL (1.6-2.6); Phosphorus 2.8 mg/dL (2.7-4.5); Potassium 4.2 mmol/L (3.3-5.1); Sodium 140 mmol/L (135-145)
--- NOTE | 2023-08-01 15:42 | PC.NURSE ---
ambulation trial performed with patient @ 10:00 per cardiologists request. Before exiting room patients HR momentarily dipped to 40s and then went up to 130s, but quickly returned to range of 50-80BPM, where it remained for the duration of the walk. Patient denied any dizziness/ chest discomfort/ or sob before, during, or after ambulation trial. Railroad Signal And Switch Operator notified. Railroad Signal And Switch Operator and ELECTRICAL UNIT REBUILDER Rosa Torrez updated daughter (patients health care proxy)
--- NOTE | 2023-08-01 15:56 | PC.NURSE ---
At approximately 14:00, patient was provided with discharge education, IV and tele monitor were removed. CNAs were in room to assist patient in getting dressed, but patient refused to be assisted and asked them to leave the room. CNAs stoodby outside of door. Staff did not hear any movement after a minute. Upon entering the room the patient was found sitting on the floor at the side of the bed, glasses were broken to right side, there was blood noted to be dripping small amount from right eyebrow. Patient does not remember incident or hitting head. Patient currently alert and oriented, Moves all extremities, neurologically intact, denies any SOB/ chest pain. Staff assisted patient to stand and get to chair, provider Rosa Torrez notified and vitals were obtained. Clinical diamond finishing supervisor and rim fire charger operator at bedside for assist. HR noted to be in 30s initially, but noted to drop to 20s, all other vital signs stable. Provider arrived at bedside and placed patient back on monitor. Construction Tech was called to bedside. pacer pads were placed on patient. IV access re obtained, EKG preformed. REPAIRER SCREEN CRUSHER called per request of cardiology, request to transfer to ICU was made by providers, and patient was started on dopamine drip by PHYSICAL FITNESS TRAINER at bedside. Patient then immediately transferred to ICU by PHYSICAL FITNESS TRAINER, charge nurse, and clinical diamond finishing supervisor. Daughter arrived at bedside prior to transfer and was updated by extruding press operator and health care provider.
--- NOTE | 2023-08-01 16:05 | ECG_ITS ---
Test Reason : bradycardia Blood Pressure : / mmHG Vent. Rate : 028 BPM Atrial Rate : 000 BPM P-R Int : 000 ms QRS Dur : 142 ms QT Int : 534 ms P-R-T Axes : 000 -20 197 degrees QTc Int : 364 ms NSR with complete heart block Ventrocular escape. Abnormal ECG When compared with ECG of 29-JUL-2023 11:14, complete heart block present Referred By: Terrance Quiñonez Electronically Signed By:Freddie Gupta
--- NOTE | 2023-08-01 16:14 | HO.THORCON_ITS ---
History of Present Illness Consult details Consult date: 08/01/23 Narrative: Urgent thoracic consultation for patient with first-degree heart block requiring immediate permanent pacemaker placement. Chart was reviewed [facility] Past Medical History Medical History (Updated 07/31/23 @ 12:50 by Wander Berrios MD) HLD (hyperlipidemia) HTN (hypertension) ABEBE on CPAP Social History Social History Patient Tobacco Use Status: Former Tobacco user Tobacco use type: Cigarette Years Smoked: 20 years Smoked in Last 30 Days: No Use of substances other than those prescribed or required for medical reasons: No Currently Displaying Signs/Symptoms of Drug Intoxication Withdrawal: No Advance Directives: No Advance Directives Information Provided: Yes Nutrition Risks: No Nutritional Risk service: Yes Meds Allergies Allergy/AdvReac Type Severity Reaction Status Date / Time amoxicillin [From Augmentin] Allergy Severe Rash Verified 07/29/23 11:07 clavulanic acid Allergy Severe Rash Verified 07/29/23 11:07 [From Augmentin] clindamycin Allergy Severe Hives Verified 07/29/23 11:07 levofloxacin [From Levaquin] Allergy Severe Headache Verified 07/29/23 11:07 Active Medications: Current Medications Acetaminophen (Acetaminophen 325 Mg Tablet) 650 mg PO Q6H PRN PRN Reason: Pain, Mild (Pain Scale 1-3) Aspirin (Aspirin 81 Mg Tab.Chew) 81 mg PO DAILY [facility] Last Admin: 08/01/23 08:49 Dose: 81 mg Atorvastatin Calcium (Atorvastatin Calcium 20 Mg Tablet) 20 mg PO BEDTIME [facility] Last Admin: 07/31/23 23:13 Dose: 20 mg Atropine Sulfate (Atropine Sulfate 1 Mg/Ml Vial) 0.5 mg SUBCUT ONCE PRN PRN Reason: bradycardia Benzonatate (Benzonatate 100 Mg Capsule) 100 mg PO TID PRN PRN Reason: Cough Docusate Sodium (Docusate Sodium 100 Mg Capsule) 100 mg PO DAILY PRN PRN Reason: Constipation Enoxaparin Sodium (Enoxaparin Sodium 30 Mg/0.3 Ml Syringe) 30 mg SUBCUT Q24H [facility] Last Admin: 08/01/23 15:23 Dose: Not Given Fentanyl (Fentanyl Citrate/Pf 100 Mcg/2 Ml Vial) 25 mcg IVPUSH Q5M PRN; Protocol PRN Reason: Pain, Moderate(Pain Scale 4-6) Dopamine HCl/Dextrose (Dopamine Hcl/D5w) 400 mg in 250 mls @ 0 mls/hr IVCONT .Q0M [facility]; Protocol Last Titration: 08/01/23 15:51 Dose: 30 mcg/kg/min, 52.05 mls/hr Melatonin (Melatonin 3 Mg Tablet) 6 mg PO BEDTIME PRN PRN Reason: Insomnia Multivitamins/Vitamin C (Multivitamin Tablet) 1 tab PO DAILY [facility] Last Admin: 08/01/23 08:48 Dose: 1 tab Ondansetron HCl (Ondansetron Hcl 4 Mg/2 Ml Vial) 4 mg IVPUSH Q8H PRN PRN Reason: Nausea and Vomiting Ondansetron HCl (Ondansetron Hcl 4 Mg/2 Ml Vial) 4 mg IVPUSH ONCE PRN PRN Reason: Nausea and Vomiting Sodium Chloride (0.9 % Sodium Chloride Flush 3 Ml Syringe) 3 ml IVFLUSH QSHIFT [facility] Last Admin: 08/01/23 08:49 Dose: 3 ml Home Medications Medication Instructions Recorded Confirmed Last Taken Type atorvastatin 20 mg tablet 20 mg PO BEDTIME 03/31/22 07/29/23 07/28/23 History calcium carbonate 600 mg calcium 600 mg PO DAILY 03/31/22 07/29/23 07/29/23 History (1,500 mg) tablet (Calcium) multivitamin 1 tab PO DAILY 03/31/22 07/29/23 07/29/23 History aspirin 81 mg chewable tablet 81 mg PO DAILY 07/29/23 07/29/23 07/29/23 History Physical Exam 2 Vital Signs: Vital Signs: Last Vital Signs Temp 96.8 F 08/01/23 11:09 Pulse 28 L 08/01/23 15:51 Resp 20 08/01/23 15:18 BP 147/62 H 08/01/23 15:51 Pulse Ox 91 L 08/01/23 15:18 O2 Del Method Nasal Cannula 08/01/23 15:18 O2 Flow Rate 2 08/01/23 15:18 Oxygen Flow Rate 2 08/01/23 14:52 BMI result Body Mass Index 15.5 Const: Other: Elderly , corpulent male. Somewhat syncopal with symptoms. In ICU with temporary external pacemaker in place and firing. Chest: Other: Chest breath sounds bilaterally, significant bradycardia/heart block GI: Other: Corpulent, soft, benign Results Labs 08/01/23 15:08 08/01/23 15:08 Labs: Abnormal lab results 08/01/23 Range/Units 15:08 BUN 19 H (9-16) mg/dL Creatinine 1.59 H (0.5-1.4) mg/dL Random Glucose 138 H (60-115) mg/dL Short CBC 08/01/23 Range/Units 15:08 WBC 9.5 (4.8-10.8) X10*3/uL Hgb 15.7 (14.0-18.0) g/dl Hct 46.7 (42.0-52.0) % Plt Count 161 (160-400) X10*3/uL BMP 08/01/23 15:08 Sodium 140 Potassium 4.2 Chloride 107 Carbon Dioxide 23 BUN 19 H Creatinine 1.59 H Calcium 9.9 D Urine 07/29/23 Range/Units 13:54 Urine Color Dark Yellow Urine Appearance Clear Urine pH 6.5 (5.0-9.0) Ur Specific [place] 1.010 (1.005-1.025) Urine Protein Negative (Neg-Trace) mg/dL Urine Glucose (UA) Negative (Negative) mg/dL All other labs normal. Assessment and Plan (1) Mobitz (type) I (Wenckebach's) atrioventricular block: Status: Acute (2) First degree heart block: Status: Acute (3) Syncope: Qualifiers: Syncope type: unspecified Qualified Code(s): R55 - Syncope and collapse Status: Acute Plan Patient is for urgent/immediate pacemaker placement for his heart block. Risks, benefits, alternatives were reviewed with the patient and his daughter who was his power of heating technician , which included but not limited to bleeding, infection, pneumothorax, lead dislodgement, numbness, pain, scarring, pneumothorax and the patient and daughter wished to proceed. All questions answered. Consent signed. Procedures Date of Service Date of Service: 08/01/23
--- NOTE | 2023-08-01 16:38 | PM.CCN ---
Critical Care Event Note Summary Date of Service: 08/01/23 Code activated: No Narrative: 88 year old gentleman admitted with bradycardia, now symptomatic bradycardia requiring dopamine support, transferred to ICU for close monitoring. Planned for permanent pacemaker. Critical Care Time (minutes): 0
--- NOTE | 2023-08-01 18:10 | P.OP_ITS ---
Operative Note Operative Note Date of Service: 08/01/23 Narrative: Preoperative diagnosis: [] Syncopal, first-degree heart block Postop diagnosis: [] Same Procedure [] dual-chamber permanent pacemaker placement with fluoroscopy and venogram Surgeon: [] Sanjay Night Auditor: [] Type of Anesthesia: [] General Indication for surgery: [] Heart block. For specifics of sensing and pacing data, please refer to [facility] work sheet. Findings: [] Patient was emergently brought to the operating room, placed on operative table in the supine position, after an adequate level of general anesthesia was induced, shoulder roll was placed, patient placed in Trendelenburg position, the right neck and chest were prepped and draped in usual sterile fashion. Venogram was undertaken and normal venous anatomy was demonstrated. Right lower extremity was pulled inferiorly and the right sub clavian vein was uneventfully cannulated. A wire was advanced to the level of the superior vena cava using Seldinger technique, under fluoroscopic guidance. Dilating sheath was placed over the wire and the wire retained. Pocket was fashioned at the cannulation site using scalpel and Bovie. Under fluoroscopic guidance, ventricular lead was uneventfully advanced into the right ventricle with good sensing and capture obtained. This was secured by a screw in technique. Dilating sheath was removed while retaining the wire. Over the retained wire. Dilating sheath for atrial lead was then placed again under fluoroscopic guidance and a wire retrieved. Atrial lead was advanced under fluoroscopic guidance with good sensing and capture in the right atrium and screwed in as well.. For specifics of the data, please refer to [facility] work sheet. Leads were secured to the pocket using 2 2-0 silk sutures to 'securing flange' respectively. Leads were appropriate connected to the generator and screwed in and confirmed and then placed in the pocket. Wound was irrigated, secured hemostasis, and closed using interrupted inverted dermal 3-0 Vicryl sutures followed by Steri-Strips and sterile dressings. Right upper extremity was placed in a sling. Wound was infiltrated at the beginning and the end with 0.5% Marcaine/1% lidocaine. Sponge, needle, instrument counts reported correct. Patient tolerated the procedure well and emerged from anesthesia in stable condition. EBL minimal. Postprocedure permanent x-ray will be obtained in ICU/recovery.
[2023-08-01] MEDS: ceFAZolin Sodium/Dextrose,Iso 2 GM/50 ML PIGGYBACK IV (18:11)
--- NOTE | 2023-08-01 18:58 | PC.NURSE ---
MANAGER ENGINE called on patient at approx. 1440. Upon arrival, HR sustaining 20s-pacer pads in place. SBPs 130s, MAPs >65. Pt. alert and oriented. Dopamine gtt brought to bedside and started by this RN per credit review officer. Pt. transported to ICU by this RN, materials handler, and RN scanner supervisor. Cardiology at ICU bedside. 0.4 mg IV atropine ordered by cardiology, administered per EMAR. HR continues to sustain 20s-30s. Dopamine gtt titrated per EMAR. Patient c/o headache and nausea, with approx. 300 cc orange emesis. 4mg zofran administered per EMAR. Multiple episodes of HR sustaining 60s-90s, then suddenly dropping to 20s-30s- pt. c/o extreme dizziness at these times. Radial pulses weak but palpable. cardiology and Professional Skateboarder notified- transcutaneous pacing started per . Paced at 30 mA with rate 60. [address] Grace, CARETAKER RESORT, and anesthesia at bedside. Pt. transported to OR by OR staff. Pacer placed by Dr. Grace- see report. At this time Pt. HR 80s-90s occasionally V-paced. Dopamine gtt stopped in OR by anesthesia. SBPs 100s, MAPs >65. Patient AOx4, forgetful at times. Report given to night RN.
[2023-08-01] MEDS: Atorvastatin Calcium 20 MG TABLET PO (20:09)
[2023-08-01] MEDS: Acetaminophen 325 MG TABLET 650 MG PO (20:09)
[2023-08-02] VITALS (17 sets, daily range): BP systolic 108–150; BP diastolic 42–67; PULSE 60–107; RESP 13–20; TEMP 36–36.6; O2SAT 92–96
[2023-08-02 05:14] LABS: MANUAL DIFF FLAG NO
[2023-08-02 05:15] LABS: Basophils Absolute Auto 0.1 X10*3/uL (0.0-0.2); Basophils Percent Auto 0.7 % (0-2); Eosinophils Absolute Auto 0.2 X10*3/uL (0.0-0.4); Eosinophils Percent Auto 2.1 % (0-4); Hematocrit 43.5 % (42.0-52.0); Hemoglobin 14.3 g/dl (14.0-18.0); Imm Gran Abs Auto 0.02 X10*3/uL (0.00-0.03); Imm Gran Pct Auto 0.2 % (0.0-0.4); Lymphocytes Absolute Auto 2.9 X10*3/uL (1.2-4.9); Lymphocytes Percent Auto 27.3 % (20-40); Mean Corpuscular HGB Conc 32.9 g/dl (31.0-36.0); Mean Corpuscular Hemoglobin 29.7 pg (27.0-33.0); Mean Corpuscular Volume 90.2 fL (80.0-98.0); Mean Platelet Volume 12.4 fL (9.4-12.4); Neutrophils Absolute Auto 6.4 x10*3/uL (2.0-8.3); Neutrophils Percent Auto 60.7 % (45-73); Platelet Count 140 X10*3/uL (160-400); Red Blood Count 4.82 X10*6/uL (4.60-5.80); Red Cell Distribution Width 14.6 % (11.0-16.0); White Blood Count 10.5 X10*3/uL (4.8-10.8)
[2023-08-02 05:30] LABS: Alanine Aminotransferase 47 U/L (0-40); Albumin Level 3.6 g/dL (3.5-5.0); Alkaline Phosphatase 55 U/L (39-117); Anion Gap 15 (12-20); Aspartate Amino Transferase 49 U/L (5-37); Bilirubin Total 0.5 mg/dL (0.0-1.0); Blood Urea Nitrogen 17 mg/dL (9-16); Calcium 9.3 mg/dL (8.4-10.2); Carbon Dioxide 25 mmol/L (22-29); Chloride 106 mmol/L (96-108); Creatinine Clr Calc Pharmacy 53.7; Estimated Glomerular Filt Rate > 60; Glucose Random 105 mg/dL (60-115); Magnesium 2.3 mg/dL (1.6-2.6); Phosphorus 2.8 mg/dL (2.7-4.5); Potassium 4.3 mmol/L (3.3-5.1); Sodium 142 mmol/L (135-145); Total Protein 7.1 g/dL (6.5-8.0)
[2023-08-02] MEDS: 0.9 % Sodium Chloride Flush 3 ML SYRINGE IVFLUSH ×3 (07:45→21:22)
[2023-08-02] MEDS: Aspirin 81 MG TAB.CHEW PO (08:24)
[2023-08-02] MEDS: Multivitamin TABLET 1 TAB PO (08:24)
--- NOTE | 2023-08-02 09:33 | PM.CCPN ---
Subjective Subjective Date of Service: 08/02/23 Interval History: 88-year-old gentleman with underlying hypertension hyperlipidemia, ABEBE on CPAP admitted on 07/29/2023 with several syncopal episode. Patient was monitored on telemetry and was being discharged on 08/01/2023 when he developed symptomatic bradycardia requiring dopamine support before placement of permanent pacemaker. Patient monitored in the intensive care unit post pacemaker placement. No events overnight. Critical Care Time (minutes): 0 Physical Exam Vital Signs: Vital Signs: Last Vital Signs Temp 98 F 08/02/23 08:00 Pulse 65 08/02/23 08:00 Resp 14 08/02/23 08:14 BP 108/52 L 08/02/23 08:00 Pulse Ox 92 08/02/23 08:00 O2 Del Method Room Air 08/02/23 08:00 O2 Flow Rate 2 08/02/23 07:05 Oxygen Flow Rate 2 08/01/23 14:52 BMI result Body Mass Index 34.2 Const: General: no acute distress, alert and awake Eyes: Sclerae: sclerae normal EOM: EOMs intact bilaterally Neck: Neck: Yes no lymphadenopathy, Yes trachea midline and Yes supple Resp: Effort & Inspection: normal respiratory effort and no respiratory distress Auscultation: clear to auscultation bilaterally Cardio: Rate: regular rate Rhythm: regular rhythm Heart sounds: no gallops, no murmurs and no rubs GI: Palpation (GI): Soft to palpation and Other GI palpation findings present ( Nontender) Auscultation: normal bowel sounds Extrem: General: Yes no pedal edema, No clubbing and No cyanosis Objective Data Labs 08/02/23 04:51 08/02/23 04:51 Labs: Laboratory Results - last 24 hr 08/01/23 08/02/23 15:08 04:51 WBC 9.5 10.5 RBC 5.33 4.82 Hgb 15.7 14.3 Hct 46.7 43.5 MCV 87.6 90.2 MCH 29.5 29.7 MCHC 33.6 32.9 RDW 14.6 14.6 Plt Count 161 140 L MPV 11.8 12.4 Immature Gran % (Auto) 0.2 0.2 Neut % (Auto) 51.6 60.7 Lymph % (Auto) 35.2 27.3 [place] % (Auto) 8.3 9.0 Eos % (Auto) 3.9 2.1 Baso % (Auto) 0.8 0.7 Lymph # (Auto) 3.4 2.9 [place] # (Auto) 0.8 1.0 Eos # (Auto) 0.4 0.2 Baso # (Auto) 0.1 0.1 Abs Immat Gran (auto) 0.02 0.02 Absolute Neuts (auto) 4.9 6.4 Absolute Nucleated RBC 0.000 0.000 Nucleated RBC % (auto) 0.0 0.0 Sodium 140 142 Potassium 4.2 4.3 Chloride 107 106 Carbon Dioxide 23 25 Anion Gap 14 15 BUN 19 H 17 H Creatinine 1.59 H 1.10 Estim Creat Clear Calc 21.0 53.7 Estimated GFR 41 > 60 Random Glucose 138 H 105 Calcium 9.9 D 9.3 D Phosphorus 2.8 2.8 Magnesium 2.3 2.3 Total Bilirubin 0.5 AST 49 H ALT 47 H Alkaline Phosphatase 55 Total Protein 7.1 Albumin 3.6 Progress Note: A&P Assessment and plan (1) High degree atrioventricular block: Status: Acute (2) Status post cardiac pacemaker procedure: Status: Acute (3) Syncope: Status: Acute (4) ABEBE on CPAP: Status: Acute Plan Assessment: 88-year-old gentleman admitted with syncopal episodes then with development of symptomatic bradycardia requiring pacemaker placement Plan: Neuro: No acute issues. Cardiac: Symptomatic bradycardia, high-degree AV block, resolved status post pacemaker placement. Thoracic surgery and Cardiology service care appreciated. Underlying hypertension. Pulmonary: No acute issues. Renal: No acute issues. Endo: No acute issues. GI: No acute issues. ID: No acute issues Heme/Onc: No acute issues. Psych: No acute issues. Miscellaneous: No acute issues. Prophylaxis: Lovenox Diet: Regular Quality Stroke Does the patient have a stroke diagnosis?: No VTE Prior VTE?: No VTE Risk Level:: Medical - moderate - high VTE Device Contraindication: Treatment Not Indicated VTE Drug Contraindication: N/A - Med Ordered
--- NOTE | 2023-08-02 11:28 | P.PNCA_ITS ---
Subjective Subjective Date of Service: 08/02/23 Interval history: Seen examined at bedside. Syncope with complete heart block and is now status post dual-chamber pacemaker. Device was interrogated this morning and has been functioning fine. Physical Exam Vital Signs: Last Vital Signs Temp 98 F 08/02/23 08:00 Pulse 65 08/02/23 08:00 Resp 14 08/02/23 08:14 BP 108/52 L 08/02/23 08:00 Pulse Ox 92 08/02/23 08:00 O2 Del Method Room Air 08/02/23 08:00 O2 Flow Rate 2 08/02/23 07:05 Oxygen Flow Rate 2 08/01/23 14:52 BMI result Body Mass Index 34.2 GENERAL APPEARANCE: in no acute distress, the orbital hematoma right eye. NECK: no carotid bruit, no jugular venous distention. SKIN: no suspicious lesions, warm and dry. HEART: no murmurs, regular rate and rhythm. LUNGS: clear to auscultation bilaterally. ABDOMEN: soft, nontender. EXTREMITIES: no edema. PERIPHERAL PULSES: equal. NEUROLOGIC: No gross deficits, AAO X 3 Objective Labs and Meds 08/02/23 04:51 08/02/23 04:51 Lab results: Laboratory Results - last 24 hr 08/01/23 08/02/23 15:08 04:51 WBC 9.5 10.5 RBC 5.33 4.82 Hgb 15.7 14.3 Hct 46.7 43.5 MCV 87.6 90.2 MCH 29.5 29.7 MCHC 33.6 32.9 RDW 14.6 14.6 Plt Count 161 140 L MPV 11.8 12.4 Immature Gran % (Auto) 0.2 0.2 Neut % (Auto) 51.6 60.7 Lymph % (Auto) 35.2 27.3 [place] % (Auto) 8.3 9.0 Eos % (Auto) 3.9 2.1 Baso % (Auto) 0.8 0.7 Lymph # (Auto) 3.4 2.9 [place] # (Auto) 0.8 1.0 Eos # (Auto) 0.4 0.2 Baso # (Auto) 0.1 0.1 Abs Immat Gran (auto) 0.02 0.02 Absolute Neuts (auto) 4.9 6.4 Absolute Nucleated RBC 0.000 0.000 Nucleated RBC % (auto) 0.0 0.0 Sodium 140 142 Potassium 4.2 4.3 Chloride 107 106 Carbon Dioxide 23 25 Anion Gap 14 15 BUN 19 H 17 H Creatinine 1.59 H 1.10 Estim Creat Clear Calc 21.0 53.7 Estimated GFR 41 > 60 Random Glucose 138 H 105 Calcium 9.9 D 9.3 D Phosphorus 2.8 2.8 Magnesium 2.3 2.3 Total Bilirubin 0.5 AST 49 H ALT 47 H Alkaline Phosphatase 55 Total Protein 7.1 Albumin 3.6 Imaging Radiologist's impression: Impressions Chest X-Ray 08/01/23 18:39 IMPRESSION: Newly placed pacemaker in good position without complication. Head CT 08/01/23 21:46 IMPRESSION: No acute intracranial pathology. Progress Note: A&P Assessment and plan (1) High degree atrioventricular block: Status: Acute (2) Status post cardiac pacemaker procedure: Status: Acute Plan 88-year-old gentleman with syncope in the setting of complete heart block. He is now status post permanent pacemaker placement. Device interrogated and is functioning fine. Can be downgraded to floors today. Potentially discharged home tomorrow. Time Spent With Patient Time: Total time managing care of this patient today ____ minutes. Progress Note: Quality Stroke Does the patient have a stroke diagnosis?: No Procedures Date of Service Date of Service: 08/02/23
--- NOTE | 2023-08-02 11:32 | MHC.CM.PN ---
Pt is s/p pacer placement on 08/01. Plans are for a transfer to med/tele today with continued monitoring to ensure clinical stability. Pt may be able to d/c to home on 08/03 w/NA services. CM to follow
--- NOTE | 2023-08-02 14:02 | PC.NURSE ---
Patient arrived into bed 445 from ICU able to stand and transfer into bed with staff assist. A&OX4. Neurologically intact. DUONG to command 5/5 except RUE d/t limited ROM from sling post pacer placement. Steri strips to right upper chest intact. LSCTA denies shortness of breath or chest pain 1L on oxygen for comfort satting mid 90's, Paced 70 on tele. BS+X4 abdomen soft non-tender denies nausea/vomiting. Able to ambulate with 1 assist to bathroom voiding without difficulty. OOB to chair. Bruising dark purple to right eye with small abrasion to eyebrow. Patient and daughter updated by Keke Torrez MARINE TECHNICIAN in afternoon. Pt educated on need for assistance and supervision with ambulation and ADL's for safety. Chair and bed alarm for safety call bae within reach. Will continue to monitor and report changes
--- NOTE | 2023-08-02 14:39 | P.EN_ITS ---
Event Note Date of Service: 08/02/23 Event Note: Transferred from ICU. Discussed with computer network support specialist. Status post pacemaker placement. Patient doing well, hemodynamically stable. Time Spent With Patient Time: Total time managing care of this patient today ____ minutes.
[2023-08-02] MEDS: Enoxaparin Sodium 30 MG/0.3 ML SYRINGE SUBCUT (14:53)
--- NOTE | 2023-08-02 16:59 | HO.POSTANES ---
Post Anesthesia Evaluation Post Anesthesia Evaluation Date of Service: 08/02/23 Vital Signs: Vital Signs Temp Pulse Resp BP Pulse Ox O2 Del Method O2 Flow Rate 08/02/23 15:23 96.8 F 68 18 148/67 H 95 Nasal Cannula 1 08/02/23 13:34 73 150/67 H 93 08/02/23 13:14 97.3 F 73 20 150/67 H 93 Nasal Cannula 1 08/02/23 12:00 70 18 113/49 L 93 Room Air 08/02/23 08:14 14 08/02/23 08:00 98 F 65 14 108/52 L 92 Room Air 08/02/23 07:05 66 15 108/52 L 96 Nasal Cannula 2 08/02/23 06:00 64 13 119/43 L 93 Nasal Cannula 2 Anesthesia: General Mental Status: Awake Pain Control: Satisfactory Nausea/Vomiting: None Hydration: Adequate Anesthesia-Related Issues: No Anes. Related Issues
[2023-08-02] MEDS: Acetaminophen 325 MG TABLET 650 MG PO (21:21)
[2023-08-02] MEDS: Atorvastatin Calcium 20 MG TABLET PO (21:22)
[2023-08-03] VITALS (9 sets, daily range): BP systolic 123–139; BP diastolic 59–72; PULSE 68–98; RESP 18–22; TEMP 36.1–36.7; O2SAT 91–97
[2023-08-03 06:51] LABS: Hematocrit 43.3 % (42.0-52.0); Hemoglobin 14.1 g/dl (14.0-18.0); Mean Corpuscular HGB Conc 32.6 g/dl (31.0-36.0); Mean Corpuscular Hemoglobin 28.9 pg (27.0-33.0); Mean Corpuscular Volume 88.7 fL (80.0-98.0); Mean Platelet Volume 12.3 fL (9.4-12.4); Platelet Count 124 X10*3/uL (160-400); Red Blood Count 4.88 X10*6/uL (4.60-5.80); Red Cell Distribution Width 14.8 % (11.0-16.0); White Blood Count 8.2 X10*3/uL (4.8-10.8)
[2023-08-03 07:13] LABS: Anion Gap 11 (12-20); Blood Urea Nitrogen 19 mg/dL (9-16); Calcium 9.4 mg/dL (8.4-10.2); Carbon Dioxide 26 mmol/L (22-29); Chloride 107 mmol/L (96-108); Creatinine Clr Calc Pharmacy 57.9; Estimated Glomerular Filt Rate > 60; Glucose Random 102 mg/dL (60-115); Potassium 4.2 mmol/L (3.3-5.1); Sodium 140 mmol/L (135-145)
[2023-08-03] MEDS: 0.9 % Sodium Chloride Flush 3 ML SYRINGE IVFLUSH ×3 (07:45→22:24)
[2023-08-03] MEDS: Aspirin 81 MG TAB.CHEW PO (08:00)
[2023-08-03] MEDS: Multivitamin TABLET 1 TAB PO (08:00)
--- NOTE | 2023-08-03 10:31 | HO.PM.IMPN ---
Subjective Subjective Date of Service: 08/03/23 Review of Systems Follow up bradycardia, fall, pacemaker tx from ICU 08/02/23 doing well, no pain sitting up in chair, ambulating Physical Exam Vital Signs: Vital Signs: Last Vital Signs Temp 97.5 F 08/03/23 07:11 Pulse 74 08/03/23 07:11 Resp 22 H 08/03/23 07:18 BP 131/66 08/03/23 07:11 Pulse Ox 97 08/03/23 07:11 O2 Del Method Room Air 08/03/23 07:11 O2 Flow Rate 1 08/02/23 15:23 Oxygen Flow Rate 2 08/01/23 14:52 BMI result Body Mass Index 34.2 Appearing in no acute distress lung sounds are clear to auscultation heart regular rate rhythm, clear S1, S2 positive bowel sounds, abdomen is soft, nontender neuro patient is alert x3, no focal deficits Right chest pacemaker incision, sling on Objective Data Active Medications Acetaminophen (Acetaminophen 325 Mg Tablet) 650 mg PO Q6H PRN PRN Reason: Pain, Mild (Pain Scale 1-3) Last Admin: 08/02/23 21:21 Dose: 650 mg Documented By: DAWN Aspirin (Aspirin 81 Mg Tab.Chew) 81 mg PO DAILY [facility] Last Admin: 08/03/23 08:00 Dose: 81 mg Documented By: BERTIN Atorvastatin Calcium (Atorvastatin Calcium 20 Mg Tablet) 20 mg PO BEDTIME [facility] Last Admin: 08/02/23 21:22 Dose: 20 mg Documented By: DAWN Atropine Sulfate (Atropine Sulfate 1 Mg/Ml Vial) 0.5 mg SUBCUT ONCE PRN PRN Reason: bradycardia Benzonatate (Benzonatate 100 Mg Capsule) 100 mg PO TID PRN PRN Reason: Cough Docusate Sodium (Docusate Sodium 100 Mg Capsule) 100 mg PO DAILY PRN PRN Reason: Constipation Enoxaparin Sodium (Enoxaparin Sodium 30 Mg/0.3 Ml Syringe) 30 mg SUBCUT Q24H [facility] Last Admin: 08/02/23 14:53 Dose: 30 mg Documented By: RAKESH Melatonin (Melatonin 3 Mg Tablet) 6 mg PO BEDTIME PRN PRN Reason: Insomnia Multivitamins/Vitamin C (Multivitamin Tablet) 1 tab PO DAILY [facility] Last Admin: 08/03/23 08:00 Dose: 1 tab Documented By: BERTIN Ondansetron HCl (Ondansetron Hcl 4 Mg/2 Ml Vial) 4 mg IVPUSH Q8H PRN PRN Reason: Nausea and Vomiting Ondansetron HCl (Ondansetron Hcl 4 Mg/2 Ml Vial) 4 mg IVPUSH ONCE PRN PRN Reason: Nausea and Vomiting Sodium Chloride (0.9 % Sodium Chloride Flush 3 Ml Syringe) 3 ml IVFLUSH QSHIFT [facility] Last Admin: 08/03/23 07:45 Dose: 3 ml Documented By: BERTIN Labs 08/03/23 05:54 08/03/23 05:54 Labs: Laboratory Results - last 24 hr 08/03/23 05:54 MCV 88.7 MCH 28.9 MCHC 32.6 RDW 14.8 Plt Count 124 L MPV 12.3 Absolute Nucleated RBC 0.000 Nucleated RBC % (auto) 0.0 Anion Gap 11 L Estim Creat Clear Calc 57.9 Estimated GFR > 60 Random Glucose 102 Calcium 9.4 Assessment and Plan (1) Status post cardiac pacemaker procedure: Status: Acute (2) High degree atrioventricular block: Status: Acute Plan 88-year-old male with a PMH significant for?HTN, HLD, ABEBE on CPAP who presents to the ED with?two syncopal episodes in the past 24 hours. Pt will be admitted to the hospital under observation for further workup for syncopal episodes. Patient fell while getting dressed just prior to discharge. When patient placed back on the carbon paper interleafer heart rate was noted to be in the 20s but patient remained completely asymptomatic. EKG showed complete HB. Fall was unwitnessed but patient denied dizziness, chest pain, shortness breast, loss of consciousness. RR called and patient tx to ICU, placed on dopamine and at some point paced (at bedside in ICU) prior to surgery. Had pacemaker placed on 08/01/23. tx back to tele from ICU, no complications. Syncope secondary to complete heart block s/p pacemaker placement s/p 2 episodes of syncope, 1st episode after exertion at home. On admission and throughout Tele monitor showed Mobitz type 1 block/prolonged KS/bradycardia likey from BB, was on atenolol at home normal echo On day of discharge patient had fall secondary to complete heart block, no LOC, HR in 20's Transferred to ICU and pacemaker placed on 08/01/2023 HTN Atenolol stopped started on amlodipine 5 mg on admission DUANE on CKD3 Likely from hypovolemia resolved Right thigh pain/tightness Chronic analgesics as needed, supportive care seen by PT ABEBE CPAP at nighttime HLD Continue statin Full Code Attending Dr. Deshpande DVT Prophylaxis: Lovenox DISPO plan for home with services when medically clear Quality Stroke Does the patient have a stroke diagnosis?: No VTE Prior VTE?: No VTE Risk Level:: Medical - moderate - high VTE Device Contraindication: Treatment Not Indicated VTE Drug Contraindication: N/A - Med Ordered
--- NOTE | 2023-08-03 10:54 | PM.DS ---
DS: Providers Provider Date of admission: 07/30/23 13:50 Primary care physician: Yusef Perez MD Consults: 07/29/23 12:17 Consult to Cardiology Stat Consulting Provider: [facility] [place] [facility] Reason for consultation: syncope x 2 yesterday with exertion Has provider been notified: No 07/29/23 13:49 Consult to Cardiology Routine Consulting Provider: [facility] [place] [facility] Reason for consultation: Syncope, increased 1st degree AV block DS: Diagnosis Discharge Diagnosis (1) Status post cardiac pacemaker procedure: Status: Acute (2) High degree atrioventricular block: Status: Acute DS: Summary Hospital Course Hospital Course: History and physical as per admitting provider. Pt is an 88-year-old male with a PMH significant for?HTN, HLD, ABEBE on CPAP who presents to the ED with?two syncopal episodes in the past 24 hours. Yesterday pt was out snowblowing when a passerby in a truck yellow at him if he needed any help. Patient found himself in a snow bank without any clear recollection how he ended up there. Thought that he must have slipped on the ice and falling back into this no back. Denies any prodrome. No lightheadedness or dizziness during this episode. Patient was helped to his feet by the passerby and had no other symptoms other some muscle tightness in his upper right thigh. Today patient was out having breakfast with some friends when had another episode. States he was just talking to people when he felt lightheaded, dizzy, and then ?passed out?. The next thing he remembers is waking up and his friends saying they were taking him to the hospital for further evaluation. Patient does report having lightheadedness and dizziness before episode, but no other symptoms. Denies chest pain/pressure, palpitations. No headache, acute vision changes. Denies any seizure-like activity. No tongue bite, no incontinence. Patient denies any significant cardiac history, and states he is on atenolol solely for blood pressure control. Reports taking one 50 mg tablet in the morning and a half tablet at night. Has recently started taking magnesium, reports no other medication changes and reports being compliant with his medications. In the ED pt was hypertensive up to 179/76, otherwise vitals WNL. Labs were significant for AST 57, ALT 55, otherwise grossly unremarkable. No leukocytosis. No electrolyte abnormalities. Creatinine 1.13. CXR pending, pelvic similar to previous. EKG demonstrated first-degree AV block with left axis deviation, but no evidence of ST elevations or depressions. First degree AV block has increased significantly since last EKG we have on record from 2019. Pt will be admitted to the hospital under observation for further workup for syncopal episodes. 88-year-old male with a PMH significant for?HTN, HLD, ABEBE on CPAP who presents to the ED with?two syncopal episodes. Patient fell while getting dressed just prior to discharge. When patient placed back on the treating and pumping supervisor heart rate was noted to be in the 20s but patient remained completely asymptomatic. EKG showed complete HB. Fall was unwitnessed but patient denied dizziness, chest pain, shortness breast, loss of consciousness. RR called and patient tx to ICU, placed on dopamine and at some point paced (at bedside in ICU) prior to surgery. Had pacemaker placed on 08/01/23. tx back to tele from ICU, no complications. No complaints of pain, sling on right arm. Patient will follow-up with cardiology for pacemaker follow-up. Patient's blood pressure has been stable during hospitalization and after stopping atenolol he was started on amlodipine but since being transferred out of the ICU his blood pressures have been stable so amlodipine has been stopped. He should check his blood pressures daily and document to share with his primary care provider in case he needs blood pressure medication at some point. Plan is for patient be discharged home with family and visiting nurse services. Obstructive sleep apnea. Continue CPAP at night Hyperlipidemia. Continue statin Obesity. BMI 34.2 Discussed importance of weight management as this may be contributing to worsening of other comorbidities Physical Exam Vital Signs: Vital Signs: Last Vital Signs Temp 97.5 F 08/03/23 07:11 Pulse 74 08/03/23 07:11 Resp 22 H 08/03/23 07:18 BP 131/66 08/03/23 07:11 Pulse Ox 97 08/03/23 07:11 O2 Del Method Room Air 08/03/23 07:11 O2 Flow Rate 1 08/02/23 15:23 Oxygen Flow Rate 2 08/01/23 14:52 BMI result Body Mass Index 34.2 DS: Data Data Completed and Pending Labs on day of discharge: Laboratory Results - last 24 hr 08/03/23 05:54 WBC 8.2 RBC 4.88 Hgb 14.1 Hct 43.3 MCV 88.7 MCH 28.9 MCHC 32.6 RDW 14.8 Plt Count 124 L MPV 12.3 Absolute Nucleated RBC 0.000 Nucleated RBC % (auto) 0.0 Sodium 140 Potassium 4.2 Chloride 107 Carbon Dioxide 26 Anion Gap 11 L BUN 19 H Creatinine 1.02 Estim Creat Clear Calc 57.9 Estimated GFR > 60 Random Glucose 102 Calcium 9.4 Discharge Plan Discharge Patient Disposition: Home Health Service Discharge Diagnosis: Syncope Complete heart block Status post pacemaker placement Referrals: [facility] [Outside] - 1 Day Shawn Grace MD [Physician] - 1 Week Wander Berrios MD [Physician] - None Discharge Medications: Continued aspirin 81 mg Tablet,Chewable 81 mg PO DAILY atorvastatin 20 mg tablet 20 mg PO BEDTIME multivitamin Tablet 1 tab PO DAILY calcium carbonate [Calcium 600] 600 mg calcium (1,500 mg) tablet 600 mg PO DAILY Discontinued atenolol 50 mg tablet 25 mg PO BEDTIME atenolol 50 mg tablet 50 mg PO DAILY Diet: Advance to usual diet Activity on Discharge: No heavy lifting Stand Alone Forms: Patient Portal Discharge page Activity Restrictions/Additional Instructions: Ice to wound 20 minutes several times today and tomorrow. May shower. Right arm sling, Leave Steri-Strips intact. No strenuous activities Care Plan Goals: Your atenolol was stopped. You were treated with amlodipine while in the hospital but this was stopped because your blood pressures was normal, check blood pressures at home daily and document to share with your primary care provider Health Concerns: Syncope Complete heart block Status post pacemaker placement Plan of Treatment: Follow-up with primary care provider as needed Follow-up with cardiology for pacemaker follow up Take all medications as prescribed no heavy lifting Assessment: See discharge summary
--- NOTE | 2023-08-03 11:25 | P.PNTS_ITS ---
Subjective Subjective Date of Service: 08/02/23 Interval history: Patient was evaluated ICU with patient's daughter present. Uneventful evening. Patient working well. [facility] demonstrates good function. Physical Exam Vital Signs: Vital Signs: Last Vital Signs Temp 97.5 F 08/03/23 07:11 Pulse 74 08/03/23 10:53 Resp 22 H 08/03/23 07:18 BP 131/66 08/03/23 10:53 Pulse Ox 97 08/03/23 10:53 O2 Del Method Room Air 08/03/23 07:11 O2 Flow Rate 1 08/02/23 15:23 Oxygen Flow Rate 2 08/01/23 14:52 BMI result Body Mass Index 34.2 Chest: Other: Right upper extremity in sling. Dressing removed. Incision clean dry and intact healing uneventfully. Procedures Date of Service Date of Service: 08/03/23 Progress Note: A&P Assessment and plan (1) Status post cardiac pacemaker procedure: Status: Acute (2) High degree atrioventricular block: Status: Acute Plan Patient doing well. Discharge instructions were reviewed with the patient and daughter. They will also be documented in the naval surface fire support planner. Time Spent With Patient Time: Total time managing care of this patient today ____ minutes. Quality Stroke Does the patient have a stroke diagnosis?: No VTE Prior VTE?: No VTE Risk Level:: Medical - moderate - high VTE Device Contraindication: Treatment Not Indicated VTE Drug Contraindication: N/A - Med Ordered
[2023-08-03] MEDS: Enoxaparin Sodium 30 MG/0.3 ML SYRINGE SUBCUT (13:15)
[2023-08-03] MEDS: Atorvastatin Calcium 20 MG TABLET PO (21:59)
[2023-08-03] MEDS: Acetaminophen 325 MG TABLET 650 MG PO (21:59)
[2023-08-04] VITALS (7 sets, daily range): BP systolic 123–149; BP diastolic 58–75; PULSE 62–99; RESP 16–20; TEMP 35.7–36.3; O2SAT 92–95
[2023-08-04] MEDS: 0.9 % Sodium Chloride Flush 3 ML SYRINGE IVFLUSH (07:51)
[2023-08-04] MEDS: Multivitamin TABLET 1 TAB PO (07:51)
[2023-08-04] MEDS: Aspirin 81 MG TAB.CHEW PO (07:51)
--- NOTE | 2023-08-04 10:31 | MHC.CM.PN ---
Per MD, Patient is medically cleared for dc to home today with [facility]. A referral was made to [facility], who has been made aware of today's dc. CM met with Patient at bedside and addressed IMM with him (original was given to Patient and a copy has been placed on the chart). Patient's Daughter/Ulci will be here after 3:00PM to transport home and RN has been made aware of this.
--- NOTE | 2023-08-04 11:41 | P.DS_ITS ---
DS: Providers Provider Date of Service: 08/04/23 Date of admission: 07/30/23 13:50 Primary care physician: Yusef Perez MD Consults: 07/29/23 12:17 Consult to Cardiology Stat Consulting Provider: [facility] [place] [facility] Reason for consultation: syncope x 2 yesterday with exertion Has provider been notified: No 07/29/23 13:49 Consult to Cardiology Routine Consulting Provider: [facility] [place] [facility] Reason for consultation: Syncope, increased 1st degree AV block DS: Diagnosis Discharge Diagnosis (1) Status post cardiac pacemaker procedure: Status: Acute (2) High degree atrioventricular block: Status: Acute DS: Summary Hospital Course Hospital Course: History and physical as per admitting provider. Pt is an 88-year-old male with a PMH significant for?HTN, HLD, ABEBE on CPAP who presents to the ED with?two syncopal episodes in the past 24 hours. Yesterday pt was out snowblowing when a passerby in a truck yellow at him if he needed any help. Patient found himself in a snow bank without any clear recollection how he ended up there. Thought that he must have slipped on the ice and falling back into this no back. Denies any prodrome. No lightheadedness or dizziness during this episode. Patient was helped to his feet by the passerby and had no other symptoms other some muscle tightness in his upper right thigh. Today patient was out having breakfast with some friends when had another episode. States he was just talking to people when he felt lightheaded, dizzy, and then ?passed out?. The next thing he remembers is waking up and his friends saying they were taking him to the hospital for further evaluation. Patient does report having lightheadedness and dizziness before episode, but no other symptoms. Denies chest pain/pressure, palpitations. No headache, acute vision changes. Denies any seizure-like activity. No tongue bite, no incontinence. Patient denies any significant cardiac history, and states he is on atenolol solely for blood pressure control. Reports taking one 50 mg tablet in the morning and a half tablet at night. Has recently started taking magnesium, reports no other medication changes and reports being compliant with his medications. In the ED pt was hypertensive up to 179/76, otherwise vitals WNL. Labs were significant for AST 57, ALT 55, otherwise grossly unremarkable. No leukocytosis. No electrolyte abnormalities. Creatinine 1.13. CXR pending, pelvic similar to previous. EKG demonstrated first-degree AV block with left axis deviation, but no evidence of ST elevations or depressions. First degree AV block has increased significantly since last EKG we have on record from 2019. Pt will be admitted to the hospital under observation for further workup for syncopal episodes. 88-year-old male with a PMH significant for?HTN, HLD, ABEBE on CPAP who presents to the ED with?two syncopal episodes, he was noted to have prolonged TN and Mobitz type 1 heart atenolol was discontinued, Heart rate improved he was planned for discharge,but he fell while getting dressed just prior to discharge. When patient placed back on the hall monitor heart rate was noted to be in the 20s but patient remained completely asymptomatic. EKG showed complete HB. Fall was unwitnessed but patient denied dizziness, chest pain, shortness breast, loss of consciousness, rapid response was called and patient tx to ICU, placed on dopamine and paced (at bedside in ICU) prior to surgery. Had pacemaker placed on 08/01/23. tx back to tele from ICU, no complications. No complaints of pain, sling on right arm. Patient will follow-up with cardiology for pacemaker follow-up. Patient's blood pressure has been stable during hospitalization and after stopping atenolol he was started on amlodipine ,He should check his blood pressures daily and document to share with his primary care provider in case he needs any medication adjustment. Plan is for patient be discharged home with family and visiting nurse services. Obstructive sleep apnea. Continue CPAP at night Hyperlipidemia. Continue statin Obesity. BMI 34.2 Discussed importance of weight management as this may be contributing to worsening of other comorbidities Time Attestation Discharge coordination time: Greater than 30 minutes Quality: Safe Use of Opioids Does Pt have an Active Cancer Diagnosis on the Problem List?: No Quality: Stroke Does the patient have a stroke diagnosis?: No Physical Exam Vital Signs: Vital Signs: Last Vital Signs Temp 97.3 F 08/04/23 11:16 Pulse 96 08/04/23 11:16 Resp 20 08/04/23 11:16 BP 148/71 H 08/04/23 11:16 Pulse Ox 95 08/04/23 11:16 O2 Del Method Room Air 08/04/23 11:16 O2 Flow Rate 1 08/02/23 15:23 Oxygen Flow Rate 2 08/01/23 14:52 BMI result Body Mass Index 34.2 Const: Other: Gen awake alert, in no acute distress Right facial ecchymosis Neck no JVD lung sounds are clear to auscultation heart regular rate rhythm, clear S1, S2 positive bowel sounds, abdomen soft, nontender neuro patient alert x3, no focal deficits Right chest pacemaker incision, sling on Discharge Plan Discharge Anticipated Discharge Date/Time: 08/04/23 11:36 Patient Disposition: Home Health Service Discharge Diagnosis: Syncope Complete heart block Status post pacemaker placement Referrals: Dia PARMAR [Outside] - 1 Week Shawn Grace MD [Physician] - 1 Week Wander Berrios MD [Physician] - None Discharge Medications: New amlodipine [Norvasc] 5 mg tablet 5 mg PO DAILY Qty: 30 0RF Continued aspirin 81 mg Tablet,Chewable 81 mg PO DAILY atorvastatin 20 mg tablet 20 mg PO BEDTIME multivitamin Tablet 1 tab PO DAILY calcium carbonate [Calcium 600] 600 mg calcium (1,500 mg) tablet 600 mg PO DAILY Discontinued atenolol 50 mg tablet 25 mg PO BEDTIME atenolol 50 mg tablet 50 mg PO DAILY Discharge Orders: Discharge Order (Routine); Ordered 08/04/23 Ordered By: Bartolo Mcdaniel Diet: Advance to usual diet Activity on Discharge: No heavy lifting Stand Alone Forms: Patient Portal Discharge page Activity Restrictions/Additional Instructions: Ice to wound 20 minutes several times today and tomorrow. May shower. Right arm sling, Leave Steri-Strips intact. No strenuous activities Care Plan Goals: Your atenolol was stopped. You were treated with amlodipine while in the hospital but this was stopped because your blood pressures was normal, check blood pressures at home daily and document to share with your primary care provider Health Concerns: Syncope Complete heart block Status post pacemaker placement Plan of Treatment: Follow-up with primary care provider as needed Follow-up with cardiology for pacemaker follow up Take all medications as prescribed no heavy lifting Assessment: See discharge summary Patient Instructions: Pacemaker (DC)
[2023-08-04] MEDS: amLODIPine Besylate 5 MG TABLET PO (11:49)
--- NOTE | 2023-08-04 11:55 | W.MHC.F2F ---
Service Date Service Date: 08/04/23 Encounter Date of encounter: 08/04/23 Reasons for Services Signs and symptoms assessed: syncope s/p pacemaker Homebound: Leaving the home is medically contraindicated at this time without the asist of a device and/or another person due th the listed conditions above and below. Reason homebound: weakness related to hospital stay Certification: Based on the above findings, I certify that this patient is confined to the home and needs intermittent senior living care, physical therapy and/or speech therapy, or continues to need occupational therapy. The patient is under my care, and I have initiated the establishment of the plan of care. The patient will be followed by a physician who will periodically review the plan of care. Time Spent With Patient Time: Total time managing care of this patient today ____ minutes.
== END 2023-08-04 16:39 | disposition home health service (06) | DRG 243 ==
LOC: HO.ED 12:18 → HO.EDOVER 14:19 → HO.IMC 19:37 → HO.ICU 08-01 14:59 → HO.IMC 08-02 11:55
PROVIDERS: Internal Medicine Pulmonary Disease; Nurse Practitioner Acute Care; Physician Assistant; Surgery; Admitting Provider Student in an Organized Health Care Education/Training Program; Emergency Provider Emergency Medicine; PCP Internal Medicine; Visit Provider Hospitalist
PROC: 0JH606Z Insertion of Pacemaker, Dual Chamber into Chest Subcutaneous Tissue and Fascia, Open Approach (ICD-10-PCS; principal; 2023-08-01 16:00)
DX: I44.0 Atrioventricular block, first degree (principal); N17.9 Acute kidney failure, unspecified; G47.33 Obstructive sleep apnea (adult) (pediatric); E86.1 Hypovolemia; I10 Essential (primary) hypertension; E78.5 Hyperlipidemia, unspecified; Z79.82 Long term (current) use of aspirin; Z79.899 Other long term (current) drug therapy
CPT/HCPCS: 36415; 70450; 71045; 71046; 80048; 80053; 81001; 82947; 83690; 83735; 83880; 84100; 84484; 85025; 85027; 85610; 85730; 93005; 93306; 94660; 95816; 97116; 97162; 97166; 97530; 99024; 99223; 99285; C1785; C1892; C1898; J0461; J0665; J0690; J1265; J1650; J2704; J3010; Q9957; Q9967

== ENCOUNTER → 2023-07-29 11:07 | Outpatient (BNV) | payer MEDICARE, SELFPAY | PROVIDERS: Admitting Provider Student in an Organized Health Care Education/Training Program; Emergency Provider Emergency Medicine; Visit Provider Internal Medicine | DX: I44.0 Atrioventricular block, first degree (principal); R94.31 Abnormal electrocardiogram [ECG] [EKG] | CPT/HCPCS: 93010 ==

== ENCOUNTER 2023-07-29 13:43 | Outpatient (BNV) | payer MEDICARE, SELFPAY | END 2023-07-30 07:00 | PROVIDERS: Admitting Provider Student in an Organized Health Care Education/Training Program; Emergency Provider Emergency Medicine; Visit Provider Internal Medicine | DX: I35.8 Other nonrheumatic aortic valve disorders (principal); I44.1 Atrioventricular block, second degree | CPT/HCPCS: 93306 ==

== ENCOUNTER → 2023-07-29 13:43 | Outpatient (BNV) | payer MEDICARE, SELFPAY | PROVIDERS: Admitting Provider Student in an Organized Health Care Education/Training Program; Emergency Provider Emergency Medicine; Visit Provider Internal Medicine | DX: I44.39 Other atrioventricular block (principal); Z95.0 Presence of cardiac pacemaker | CPT/HCPCS: 99223; 99232; 99233; 99499 ==

== ENCOUNTER → 2023-07-29 13:43 | Outpatient (BNV) | payer MEDICARE, SELFPAY | PROVIDERS: Admitting Provider Student in an Organized Health Care Education/Training Program; Emergency Provider Emergency Medicine; Visit Provider Student in an Organized Health Care Education/Training Program | DX: I44.39 Other atrioventricular block (principal); Z95.0 Presence of cardiac pacemaker | CPT/HCPCS: 99222; 99232; 99233; 99239; 99499; G0180 ==

== ENCOUNTER 2023-07-30 13:50 | Outpatient (BNV) | payer MEDICARE, SELFPAY | END 2023-08-01 16:05 | PROVIDERS: Admitting Provider Student in an Organized Health Care Education/Training Program; Emergency Provider Emergency Medicine; PCP Internal Medicine; Visit Provider Internal Medicine Cardiovascular Disease | DX: I44.2 Atrioventricular block, complete (principal); R94.31 Abnormal electrocardiogram [ECG] [EKG] | CPT/HCPCS: 93010 ==

== ENCOUNTER → 2023-07-30 13:50 | Outpatient (BNV) | payer MEDICARE, SELFPAY | PROVIDERS: Admitting Provider Student in an Organized Health Care Education/Training Program; Emergency Provider Emergency Medicine; Visit Provider Internal Medicine Pulmonary Disease | DX: I44.39 Other atrioventricular block (principal); Z95.0 Presence of cardiac pacemaker; R55 Syncope and collapse; G47.33 Obstructive sleep apnea (adult) (pediatric); Z99.89 Dependence on other enabling machines and devices | CPT/HCPCS: 99232; 99499 ==

== ENCOUNTER → 2023-07-30 13:50 | Outpatient (BNV) | payer MEDICARE, SELFPAY | PROVIDERS: Admitting Provider Student in an Organized Health Care Education/Training Program; Emergency Provider Emergency Medicine; Visit Provider Surgery | DX: I44.1 Atrioventricular block, second degree (principal); I44.0 Atrioventricular block, first degree; R55 Syncope and collapse | CPT/HCPCS: 33208; 75820; 99223 ==

== ENCOUNTER 2023-08-09 13:42 | Outpatient (AMB) | payer MEDICARE, SELFPAY ==
--- NOTE | 2023-08-09 13:58 | A.OFFVIS_ITS ---
Intake Vital Signs 08/09/23 14:26 Height 5 ft 8 in BP 132/68 Blood Pressure Location Lt brachial Position Sitting Pulse 82 Intake Visit Reasons: S/p pacemaker placement Intake Note: Patient here s/p dual chamber pacemaker placement on 08-01-23. Patient c/o: bruising on the lt flank. Patient thinks bruising is due to fall. Senior Sustainability Consultant Required: No Accompanied by: Daughter Allergies amoxicillin [From Augmentin] Allergy (Severe, Verified 08/09/23 14:28) Rash clavulanic acid [From Augmentin] Allergy (Severe, Verified 08/09/23 14:28) Rash clindamycin Allergy (Severe, Verified 08/09/23 14:28) Hives levofloxacin [From Levaquin] Allergy (Severe, Verified 08/09/23 14:28) Headache HPI HPI Comments History of Present Illness Details Patient presents with his daughter for follow-up status post permanent pacemaker placement. He has no wound issues or complaints. Patient was seen by Cardiology earlier today. [facility] Medical History HLD (hyperlipidemia) HTN (hypertension) ABEBE on CPAP Family History Mother No problems noted. Father No problems noted. Social History Patient Tobacco Use Status: Former Tobacco user Tobacco use type: Cigarette Years Smoked: 20 years service: Yes Physical Exam Vital Signs: Last Vital Signs Pulse 82 08/09/23 14:26 BP 132/68 08/09/23 14:26 Chest Other: Wound clean dry and intact healing uneventfully. Assessment & Plan Assessment & Plan (1) Status post cardiac pacemaker procedure: Code(s): Z95.0 - Presence of cardiac pacemaker Plan Patient and daughter have been given local instructions including wearing sling for another week at night and avoiding strenuous activities with his upper extremity for next 2 weeks time. All questions answered. They will follow-up p.r.n.. Coding Level of Care Code Global (48103) Diagnoses Status post cardiac pacemaker procedure Z95.0
[2023-08-09 14:26] VITALS: BP 132/68; PULSE 82
== END 2023-08-09 14:48 | disposition home or self-care (01) ==
PROVIDERS: PCP Internal Medicine; Visit Provider Surgery
DX: Z95.0 Presence of cardiac pacemaker (principal)
CPT/HCPCS: 99024

== ENCOUNTER 2023-08-09 13:42 | Outpatient (AMB) | payer MEDICARE, SELFPAY ==
--- NOTE | 2023-08-09 13:47 | MHC.OFFVIS ---
Intake Vital Signs 08/09/23 13:51 Height 5 ft 8 in BMI Reason not done Patient refused/unable BP 132/68 Blood Pressure Location Lt brachial Position Sitting Pulse 82 Intake Visit Reasons: inpatient follow up Intake Note: inpatient follow up Cigarette Seller Required: No Accompanied by: Self / Same As Patient Allergies amoxicillin [From Augmentin] Allergy (Severe, Verified 08/09/23 13:51) Rash clavulanic acid [From Augmentin] Allergy (Severe, Verified 08/09/23 13:51) Rash clindamycin Allergy (Severe, Verified 08/09/23 13:51) Hives levofloxacin [From Levaquin] Allergy (Severe, Verified 08/09/23 13:51) Headache Medication List - Last Reconciled 08/09/23 by Wander Berrios MD amlodipine (Norvasc) 5 mg PO DAILY aspirin 81 mg PO DAILY atorvastatin 20 mg PO BEDTIME calcium carbonate (Calcium) 600 mg PO DAILY multivitamin 1 tab PO DAILY HPI HPI Comments History of Present Illness Details Clive returns for follow-up after recent hospitalization. He was admitted with syncopal episodes. Subsequently, he was monitor on telemetry and that showed evidence of complete heart block. He underwent an urgent permanent pacemaker implantation. Since that time, no new issues. He states he feels good. He was on beta-blockers at the time of admission but they were stopped. Currently on amlodipine. Otherwise, no new issues. [facility] Medical History (Updated 08/09/23 @ 13:59 by Wander Berrios MD) HLD (hyperlipidemia) HTN (hypertension) ABEBE on CPAP Family History (Updated 08/09/23 @ 13:52 by Josiane Stern) Mother No problems noted. Father No problems noted. Social History Patient Tobacco Use Status: Former Tobacco user Tobacco use type: Cigarette Years Smoked: 20 years service: Yes Review of Systems Const All systems reviewed & are unremarkable except as noted in HPI and below Reports as per HPI and Reports no additional complaints Eyes Reports as per HPI and Denies no additional complaints ENT Denies no additional complaints and Reports as per HPI Card Reports as per HPI, Reports no additional complaints, Denies acrocyanosis, Denies chest pain, Denies leg edema, Denies lightheadedness, Denies palpitations and Denies dyspnea Resp Reports as per HPI, Denies no additional complaints and Denies dyspnea GI Reports as per HPI and Denies no additional complaints Reports no additional complaints and Reports as per HPI Musc Reports no additional complaints and Reports as per HPI Skin/Breast Reports system reviewed and no additional complaints, except as documented Neuro Reports no additional complaints and Reports as per HPI Psych Reports no additional complaints and Reports as per HPI Endo Reports no additional complaints, Reports as per HPI and Denies palpitations Francis/Lymph Reports no additional complaints and Reports as per HPI Aller/Immun Reports no additional complaints and Reports as per HPI Physical Exam Vital Signs: Last Vital Signs Pulse 82 08/09/23 13:51 BP 132/68 08/09/23 13:51 Const General: comfortable and no acute distress Orientation/consciousness: patient oriented x3 HEENT Other: Unremarkable Head: Yes normal to inspection Neck Neck: Yes normal visual inspection Chest Chest palpation & inspection: normal inspection of the chest Resp Auscultation: clear to auscultation bilaterally Cardio Palpation: normal PMI Heart sounds: S1 normal heart sound present, S2 normal heart sound present, no gallops, no murmurs and no rubs GI Palpation (GI): Soft to palpation Back/Spine/Pelvis Other: unremarkable Skin General skin exam: no rashes or lesions noted Neuro General: patient oriented x3 Extrem General: Yes normal to inspection Psych Mental Status: mental status grossly normal Assessment & Plan Assessment & Plan (1) Complete heart block: Code(s): I44.2 - Atrioventricular block, complete (2) Status post cardiac pacemaker procedure: Code(s): Z95.0 - Presence of cardiac pacemaker (3) HTN (hypertension): Code(s): I10 - Essential (primary) hypertension Plan Status post recent pacemaker implantation. Will arrange for in office interrogation next Wednesday and then also scheduled for remote pacemaker follow-up. With regard to hypertension, he was on atenolol and that has now been changed to amlodipine. Some slightly elevated blood pressures at home but nothing too concerning. Today, it seems okay. No changes made today. Discussed at great length with daughter and all questions answered to their satisfaction. Total time spent including review of data, counseling, documentation, coordination of care-32 minutes. Coding Level of Care Code Est Pt Level 4 (08169) Diagnoses Complete heart block I44.2 Status post cardiac pacemaker procedure Z95.0 HTN (hypertension) I10
[2023-08-09 13:51] VITALS: BP 132/68; PULSE 82
== END 2023-08-09 14:23 | disposition home or self-care (01) ==
PROVIDERS: PCP Internal Medicine; Visit Provider Internal Medicine
DX: I44.2 Atrioventricular block, complete (principal); Z95.0 Presence of cardiac pacemaker; I10 Essential (primary) hypertension
CPT/HCPCS: 99214

== ENCOUNTER → 2023-08-09 13:42 | Outpatient (BNVA) | payer MEDICARE, SELFPAY | PROVIDERS: PCP Internal Medicine; Visit Provider Internal Medicine | DX: Z09 Encounter for follow-up examination after completed treatment for conditions other than malignant neoplasm (principal); I44.2 Atrioventricular block, complete; I10 Essential (primary) hypertension; Z95.0 Presence of cardiac pacemaker | CPT/HCPCS: 99212 ==

== ENCOUNTER 2023-08-16 14:56 | Outpatient (AMB) | payer MEDICARE, SELFPAY ==
--- NOTE | 2023-08-17 19:16 | A.OFFVIS_ITS ---
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 Father No problems noted. Social History Patient Tobacco Use Status: Former Tobacco user Tobacco use type: Cigarette Years Smoked: 20 years service: Yes Office Procedures Cardiac Device Check Cardiac Device Check Details: Pacemaker interrogated today. Dual chamber device. DDD. Battery status >10 yrs. Normal lead parameters. AP 19% and [employer] 98%. Normal device function. Due to right arm swelling, sent to see surgeon. [id number] Cardiac Device Check, pacemaker dual lead Procedure code (CPT) selection complete Assessment & Plan Assessment & Plan (1) Complete heart block: Code(s): I44.2 - Atrioventricular block, complete Plan x Coding Level of Care Code Procedure Only Diagnoses Complete heart block I44.2 CPT Codes Cardiac Device Check - Cardiac Device 2: [id number] Cardiac Device Check, pacemaker dual lead ([id number])
== END 2023-08-16 15:39 | disposition home or self-care (01) ==
PROVIDERS: PCP Internal Medicine; Visit Provider Internal Medicine
DX: I44.2 Atrioventricular block, complete (principal); Z95.0 Presence of cardiac pacemaker
CPT/HCPCS: 93280

== ENCOUNTER 2023-08-16 16:11 | Outpatient (REF) | payer MEDICARE, SELFPAY ==
--- NOTE | ~2023-08-16 | US_ITS ---
EXAMINATION: US VENOUS WITH DOPPLER UPPER EXTREMITY, RIGHT CLINICAL INFORMATION: Right arm swelling. Status post pacemaker x2 weeks COMPARISON: None available. TECHNIQUE: Ultrasound of the upper extremity is performed using compression sonography and color and pulse Doppler flow with assessment of augmentation of flow. There is also imaging and Doppler assessment of the jugular and subclavian veins. Spectral analysis with color-flow imaging is performed. FINDINGS: Respiratory variation, normal compression, and augmented flow are noted throughout the upper extremity including the axillary, brachial, cubital, and radial and ulnar veins. There is normal flow in the internal jugular and subclavian veins. There is no visible deep or superficial thrombophlebitis. The contralateral internal jugular and subclavian veins are patent. If the patient's symptoms progress, a followup ultrasound in 5 -7 days might be of value to exclude proximal propagation from a nonvisualized distal arm vein. US/US venous duplex UE RT IMPRESSION: No DVT demonstrated in right upper extremity.
== END 2023-08-16 16:12 | disposition home or self-care (01) ==
LOC: HO.US 16:11
PROVIDERS: PCP Internal Medicine; Visit Provider Surgery
DX: I44.2 Atrioventricular block, complete (principal); M79.89 Other specified soft tissue disorders; Z95.0 Presence of cardiac pacemaker
CPT/HCPCS: 93280; 93971

== ENCOUNTER 2023-08-17 10:28 | Outpatient (AMB) | payer MEDICARE, SELFPAY ==
--- NOTE | 2023-08-17 10:32 | A.OFFVIS_ITS ---
Intake Vital Signs 08/17/23 10:33 Height 5 ft 8 in BP 142/88 H Blood Pressure Location Lt brachial Position Sitting Pulse 82 Intake Visit Reasons: Rt arm swelling/ pacemaker Intake Note: Patient here c/o Rt arm swelling and pain. Looks purple. Was seen by precision dyer yesterday. Center Manager Required: No Accompanied by: daughter Yeny Allergies amoxicillin [From Augmentin] Allergy (Severe, Verified 08/17/23 10:34) Rash clavulanic acid [From Augmentin] Allergy (Severe, Verified 08/17/23 10:34) Rash clindamycin Allergy (Severe, Verified 08/17/23 10:34) Hives levofloxacin [From Levaquin] Allergy (Severe, Verified 08/17/23 10:34) Headache HPI HPI Comments History of Present Illness Details Patient presents with his daughter for follow-up status post cardiology visit yesterday and was a concern of right hand swelling. Patient will not have a right upper extremity Doppler evaluation which was within normal limits. No evidence of DVT. 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 Father No problems noted. Social History Patient Tobacco Use Status: Former Tobacco user Tobacco use type: Cigarette Years Smoked: 20 years service: Yes Physical Exam Vital Signs: Last Vital Signs Pulse 82 08/17/23 10:33 BP 142/88 H 08/17/23 10:33 Chest Other: Right chest wound clean dry and intact healing uneventfully. Extrem Other: Bilateral upper extremities grossly neurovascularly intact. No evidence of any edema, discoloration, or weakness. Assessment & Plan Assessment & Plan (1) Status post placement of cardiac pacemaker: Code(s): Z95.0 - Presence of cardiac pacemaker Plan Patient and daughter were reassured. At present no acute issues. They have been given local instructions, and will follow-up p.r.n. with me and with Cardiology as directed. All questions answered. Coding Level of Care Code Global (29653) Diagnoses Status post placement of cardiac pacemaker Z95.0
[2023-08-17 10:33] VITALS: BP 142/88; PULSE 82
== END 2023-08-17 10:51 | disposition home or self-care (01) ==
PROVIDERS: PCP Internal Medicine; Visit Provider Surgery
DX: Z95.0 Presence of cardiac pacemaker (principal)
CPT/HCPCS: 99024

== ENCOUNTER → 2023-08-17 10:28 | Outpatient (BNVA) | payer MEDICARE, SELFPAY | PROVIDERS: PCP Internal Medicine; Visit Provider Surgery | DX: Z95.0 Presence of cardiac pacemaker (principal) | CPT/HCPCS: 99212 ==

== ENCOUNTER → 2023-08-24 23:59 | Outpatient (BNV) | payer MEDICARE, SELFPAY ==
--- NOTE | 2023-08-25 12:22 | MHC.OFFVIS ---
Intake Intake Visit Reasons: Remote Device Check- 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 Father No problems noted. Social History Patient Tobacco Use Status: Former Tobacco user Tobacco use type: Cigarette Years Smoked: 20 years service: Yes Office Procedures Cardiac Device Check Cardiac Device Check Details: Date of service- 08/24/2023 ; Battery life >10 years; normal lead parameters; AP 24%; [employer] >99%; no significant arrhythmias. Overall normal device function. [id number] Cardiac Device Interrogation, pacemaker Procedure code (CPT) selection complete Assessment & Plan Assessment & Plan (1) Complete heart block: Code(s): I44.2 - Atrioventricular block, complete Plan x Coding Level of Care Code Procedure Only Diagnoses Complete heart block I44.2 CPT Codes Cardiac Device Check - Cardiac Device 12: [id number] Cardiac Device Interrogation, pacemaker ([id number])
== END ==
PROVIDERS: PCP Internal Medicine; Visit Provider Internal Medicine
DX: I44.2 Atrioventricular block, complete (principal); Z95.0 Presence of cardiac pacemaker
CPT/HCPCS: 93294

== ENCOUNTER 2023-09-27 14:02 | Outpatient (AMB) | payer MEDICARE, SELFPAY ==
[2023-09-27 14:09] VITALS: BP 120/62; PULSE 91; BMI 35.3
--- NOTE | 2023-09-27 14:09 | A.OFFVIS_ITS ---
Intake Vital Signs 09/27/23 14:09 Height 5 ft 8 in Weight 231 lb 14.821 oz BMI 35.3 BP 120/62 Blood Pressure Location Lt brachial Position Sitting Pulse 91 Pulse Source Pulse Oximeter Intake Visit Reasons: follow up Continuity Editor Required: No K 12 Principal: K 12 Principal Present Allergies amoxicillin [From Augmentin] Allergy (Severe, Verified 09/27/23 14:14) Rash clavulanic acid [From Augmentin] Allergy (Severe, Verified 09/27/23 14:14) Rash clindamycin Allergy (Severe, Verified 09/27/23 14:14) Hives levofloxacin [From Levaquin] Allergy (Severe, Verified 09/27/23 14:14) Headache Medication List - Last Reconciled 09/27/23 by Marycarmen Toro NP-C amlodipine 7.5 mg (1.5 x 5 mg) PO DAILY 90 days aspirin 81 mg PO DAILY atorvastatin 20 mg PO BEDTIME calcium carbonate (Calcium) 600 mg PO DAILY multivitamin 1 tab PO DAILY HPI follow up HPI Details Clive is an 88-year-old male with past medical history of hypertension, hyperlipidemia, sleep apnea with CPAP use Mobitz 1 heart block, recent high- degree AV block, status post [employer]riel dual-chamber pacemaker placement who presents for follow-up. Today he reports he has been doing well since his last visit. He had issues with right arm swelling post pacemaker placement and was seen by surgery, Dr. Grace. He says he did have an ultrasound which showed no blockages. Since then his arm has improved gradually. He believes now his arms back to normal. He denies any discomfort at his pacemaker site. No chest discomfort, shortness of breath, palpitations, presyncope, syncope, falls, PND, orthopnea or edema. He does have some fatigue which he relates to the pacemaker. His home blood pressures have been improved on the increase of his amlodipine up to 7.5 mg daily from 5 mg daily. Daughter is present. 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 Father No problems noted. Social History Patient Tobacco Use Status: Former Tobacco user Tobacco use type: Cigarette Years Smoked: 20 years service: Yes Review of Systems Const All systems reviewed & are unremarkable except as noted in HPI and below ENT Denies dizziness Card Denies chest pain, Denies chest pain at rest, Denies chest pain with activity, Denies rapid heart rate, Denies pedal edema, Denies edema, Denies leg edema, Denies lightheadedness, Denies palpitations, Denies dyspnea, Reports dyspnea on exertion and Denies orthopnea Resp Denies cough, Denies dyspnea and Reports dyspnea on exertion GI Denies hematochezia and Denies change in stool character Musc Denies abnormal gait, Denies limited range of motion, Denies muscle cramps, Denies muscle weakness, Denies numbness, Denies radiating pain into limb, Denies stiffness and Denies tingling Neuro Denies abnormal gait, Denies dizziness, Denies numbness and Denies tingling Endo Denies palpitations Physical Exam Vital Signs: Last Vital Signs Pulse 91 09/27/23 14:09 BP 120/62 09/27/23 14:09 BMI result Body Mass Index 35.3 Const General: cooperative, healthy appearing, comfortable and no acute distress Orientation/consciousness: patient oriented x3 Neck Neck: Yes normal visual inspection and Yes no JVD Resp Effort & Inspection: normal respiratory effort Auscultation: clear to auscultation bilaterally, no crackles, no rales, no rhonchi and no wheezes Cardio Jugular venous distension: no JVD Rate: regular rate Rhythm: regular rhythm Heart sounds: S1 normal heart sound present, S2 normal heart sound present, no murmurs and no rubs Neuro General: patient oriented x3 Extrem General: Yes normal to inspection and No no pedal edema Psych Appearance: grossly normal Mental Status: mental status grossly normal Speech and movement: Normal speech and movement present Assessment & Plan Assessment & Plan (1) Status post placement of cardiac pacemaker: Code(s): Z95.0 - Presence of cardiac pacemaker Plan: Patient had syncopal event while in the hospital in July and had findings of complete heart block. He then underwent a [employer]riel dual-chamber pacemaker placement. Interrogation done last month in our office showed it is functioning normally. He has not had any recurrent syncopal events. Did have some swelling in his right arm initially however that has since resolved. An ultrasound did not confirm any thrombosis. He has remote monitoring in use. Next office interrogation due in 5 months. Spent time reviewing general care of pacemaker and any concerning symptoms to watch for. Emergency care if ever needed for any concerning symptoms. (2) Complete heart block: Code(s): I44.2 - Atrioventricular block, complete Plan: As above (3) HTN (hypertension): Code(s): I10 - Essential (primary) hypertension Plan: Normal range today. Recent increase in his amlodipine from 5 mg daily up to 7.5 mg daily. They bring in a list of his home blood pressures. His systolic had been running 140-160. It now has been running mostly in the 130s. Blood pressure is lower in the office today. They will continue to periodically monitor it. If any concerns they will let us know. Plan Time spent on chart review, documentation, interview and assessment Coding Level of Care Code Est Pt Level 3 (01601) Diagnoses Status post placement of cardiac pacemaker Z95.0 Complete heart block I44.2 HTN (hypertension) I10 Time Spent (min) 24
== END 2023-09-27 14:54 | disposition home or self-care (01) ==
PROVIDERS: PCP Internal Medicine; Visit Provider Nurse Practitioner Family
DX: Z95.0 Presence of cardiac pacemaker (principal); I44.2 Atrioventricular block, complete; I10 Essential (primary) hypertension
CPT/HCPCS: 99213

== ENCOUNTER → 2023-09-27 14:02 | Outpatient (BNVA) | payer MEDICARE, SELFPAY | PROVIDERS: PCP Internal Medicine; Visit Provider Nurse Practitioner Family | DX: I44.2 Atrioventricular block, complete (principal); I10 Essential (primary) hypertension; Z95.0 Presence of cardiac pacemaker | CPT/HCPCS: 99212 ==

== ENCOUNTER 2023-11-03 07:34 | Outpatient (REF) | payer MEDICARE, SELFPAY ==
--- NOTE | ~2023-11-03 | XR_ITS ---
EXAMINATION: XR KNEE, RIGHT CLINICAL INFORMATION: Pain. COMPARISON: None available. TECHNIQUE: Frontal, lateral and axial views of the right knee are submitted. FINDINGS: Bony alignment and mineralization are normal. There is moderate asymmetric narrowing of the medial joint space compartment. The lateral and patellofemoral joint space compartment are well-maintained. There is slight peripheral osteophyte formation of the patellofemoral compartment. A small osteophyte arises from the upper pole of the patella at the quadriceps tendon insertion. No fracture, dislocation or joint effusion is seen. There is no foreign body. There are atherosclerotic calcifications. XR/XR knee RT 3V IMPRESSION: 1. There is moderate osteoarthritic change of the medial joint space compartment of the right knee, and mild osteoarthritic change is seen of the patellofemoral compartment. 2. No fracture, dislocation or joint effusion is seen.
== END 2023-11-03 07:35 | disposition home or self-care (01) ==
LOC: HO.HOSX 07:34
PROVIDERS: Visit Provider Orthopaedic Surgery
DX: M17.11 Unilateral primary osteoarthritis, right knee (principal)
CPT/HCPCS: 73562; 99202

== ENCOUNTER 2023-11-03 12:31 | Outpatient (AMB) | payer MEDICARE, SELFPAY ==
[2023-11-03 12:40] VITALS: BP 143/81; BMI 35.1
--- NOTE | 2023-11-03 12:40 | A.OFFVIS_ITS ---
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 Penn with Right knee pain. The patient describes his pain sharp in nature. His pain has gotten worse over the last few years in spite of continued non operative treatments. Has had cortisone injections which gave him no relief. He has also tried Tylenol and icy hot topical gel which gave him minimal relief. He denies any locking or giving way. Would like to hold off on surgery for as long as possible. He has done physical therapy exercises which aggravated his pain. Allergies amoxicillin [From Augmentin] Allergy (Severe, Verified 11/03/23 12:59) Rash clavulanic acid [From Augmentin] Allergy (Severe, Verified 11/03/23 12:59) Rash clindamycin Allergy (Severe, Verified 11/03/23 12:59) Hives levofloxacin [From Levaquin] Allergy (Severe, Verified 11/03/23 12:59) Headache Medication List - Last Reconciled 11/03/23 by Sanya Olmstead MD amlodipine 7.5 mg (1.5 x 5 mg) PO DAILY 90 days aspirin 81 mg PO DAILY atorvastatin 20 mg PO BEDTIME calcium carbonate (Calcium) 600 mg PO DAILY multivitamin 1 tab PO DAILY [facility] Medical History (Updated 11/03/23 @ 13:13 by Sanya Olmstead MD) HTN (hypertension) ABEBE on CPAP 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 Father No problems noted. Social History Patient Tobacco Use Status: Former Tobacco user Tobacco use type: Cigarette Years Smoked: 20 years service: Yes Current occupational status: retired Current occupation: Right hand dominate Physical Exam Vital Signs: BMI result Body Mass Index 35.1 Const Other: Well-nourished well-developed very friendly male awake alert and oriented x3 in no acute distress Extrem Other: Bilateral lower extremity examination shows good capillary refill, no skin lesions noted, normal sensation light touch Right knee examination shows a minimal effusion, palpable crepitus with range of motion, pain with range of motion, range of motion from -3 degrees to 115 degrees, no instability Results Reviewed Results Reviewed: X-rays of the patient's right knee taken today show moderate joint space narrowing most significant in the medial compartment, subchondral sclerosis, no acute bony abnormalities Assessment & Plan Assessment & Plan (1) Arthritis of right knee: Code(s): M17.11 - Unilateral primary osteoarthritis, right knee Category: Medical Plan Mr. Servin presents with right knee pain due to degenerative joint disease. I had a lengthy discussion with the patient regarding the treatment options. He wishes to hold off on surgery for as long as possible. I agree with this plan. He has not gotten good relief from cortisone injections in the past. Thus, I will see whether not the patient's insurance company will cover a viscosupplementation injection. I will see him back once the injection is available. Feel free to call me at any time should questions regarding his orthopedic management arise. I spent 22 minutes in reviewing the patient's records and imaging studies, seeing the patient and documenting in the medical record. Orders: Orders XR knee RT 3V Today M25.561 - Pain in right knee Coding Level of Care Code New Pt Level 2 (97255) Diagnoses Arthritis of right knee M17.11
== END 2023-11-03 13:11 | disposition home or self-care (01) ==
PROVIDERS: PCP Internal Medicine; Visit Provider Orthopaedic Surgery
DX: M17.11 Unilateral primary osteoarthritis, right knee (principal)
CPT/HCPCS: 99202

== ENCOUNTER 2023-11-16 13:18 | Outpatient (AMB) | payer MEDICARE, SELFPAY ==
[2023-11-16 13:26] VITALS: BMI 35.1
--- NOTE | 2023-11-16 13:26 | MHC.OFFVIS ---
Vital Signs 11/16/23 13:26 Height 5 ft 8 in Weight 231 lb BMI 35.1 Intake Visit Reasons: OV- Right knee Durolane injection Intake Note: Clive is a 88 year old male who presents with complaints of progressively worsening right knee pain. He describes his pain as sharp in nature. Has had cortisone injections in the past which gave him minimal relief. Has not had a viscosupplementation injection. He has tried Tylenol and anti-inflammatory medicines which gave him minimal relief. Has done physical therapy exercises which aggravated his pain. Would like to hold off on right total knee replacement surgery for as long as possible. 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 Father No problems noted. Social History Patient Tobacco Use Status: Former Tobacco user Tobacco use type: Cigarette Years Smoked: 20 years service: Yes Current occupational status: retired Current occupation: Right hand dominate Physical Exam Vital Signs: BMI result Body Mass Index 35.1 Const Other: Well-nourished well-developed very friendly male awake alert and oriented x3 in no acute distress Extrem Other: Bilateral lower extremity examination shows good capillary refill, no skin lesions noted, normal sensation light touch Right knee examination shows a minimal effusion, palpable crepitus with range of motion, pain with range of motion, no instability Office Procedures Joint Injection/Drain Joint Injection/Drain Primary Site: right knee Prep: site was prepped using aseptic technique Injected: 60 mg of (Durolane viscosupplementation) and 1% plain lidocaine Procedure: The patient tolerated the procedure well Coding - Large joint Procedure code (CPT) selection complete Results Reviewed Results Reviewed: X-rays of the patient's right knee show joint space narrowing, subchondral sclerosis, no acute bony abnormalities Assessment & Plan Assessment & Plan (1) Arthritis of right knee: Code(s): M17.11 - Unilateral primary osteoarthritis, right knee Category: Medical Plan Mr. Servin presents with right knee pain due to degenerative joint disease. I had a lengthy discussion with the patient regarding the treatment options. Wishes to hold off on surgery for as long as possible. I agree with this plan. He has not gotten good relief from cortisone injections in the past. Thus, the risks and benefits of a Durolane viscosupplementation injection were discussed at length with the patient. The patient wished to proceed with the injection. He tolerated the injection well. He will continue with his home exercise program. He will follow up with me on an as-needed basis should his symptoms not plateau at an unacceptable level over the next few months. Feel free to call me at any time should questions regarding his orthopedic management arise. I spent 21 minutes in reviewing the patient's records and imaging studies, seeing the patient and documenting in the medical record. Orders: Orders AMB Joint Injection/Aspiration Today M17.11 - Unilateral primary osteoarthritis, right knee Coding Level of Care Code Est Pt Level 3 (74266) Diagnoses Arthritis of right knee M17.11 CPT Codes Coding - Large joint: 89214 - Large joint ([id number])
== END 2023-11-16 14:00 | disposition home or self-care (01) ==
PROVIDERS: PCP Internal Medicine; Visit Provider Orthopaedic Surgery
DX: M17.11 Unilateral primary osteoarthritis, right knee (principal)
CPT/HCPCS: 20610; 99213

== ENCOUNTER → 2023-11-16 13:18 | Outpatient (BNVA) | payer MEDICARE, SELFPAY | PROVIDERS: PCP Internal Medicine; Visit Provider Orthopaedic Surgery | DX: M17.11 Unilateral primary osteoarthritis, right knee (principal) | CPT/HCPCS: 20610; 99212; J7318 ==

== ENCOUNTER → 2023-11-23 23:59 | Outpatient (BNV) | payer MEDICARE, SELFPAY ==
--- NOTE | 2023-11-25 12:57 | A.OFFVIS_ITS ---
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 Father No problems noted. 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 Overall normal device function. [id number] Cardiac Device Interrogation, pacemaker Procedure code (CPT) selection complete Assessment & Plan Assessment & Plan (1) Complete heart block: Code(s): I44.2 - Atrioventricular block, complete Category: Medical Plan x Coding Level of Care Code Procedure Only Diagnoses Complete heart block I44.2 CPT Codes Cardiac Device Check - Cardiac Device 12: [id number] Cardiac Device Interrogation, pacemaker ([id number])
== END ==
PROVIDERS: PCP Internal Medicine; Visit Provider Internal Medicine
DX: I44.2 Atrioventricular block, complete (principal); Z95.0 Presence of cardiac pacemaker
CPT/HCPCS: 93294

== ENCOUNTER 2024-01-23 16:30 | Emergency (ER) | payer MEDICARE, SELFPAY ==
--- NOTE | 2024-01-23 | ECG_ITS ---
Test Reason : chest pain Blood Pressure : / mmHG Vent. Rate : 082 BPM Atrial Rate : 082 BPM P-R Int : 172 ms QRS Dur : 170 ms QT Int : 430 ms P-R-T Axes : -03 -77 087 degrees QTc Int : 502 ms Atrial-sensed ventricular-paced rhythm Abnormal ECG When compared with ECG of 01-AUG-2023 14:23, Ventricular-paced rhythm has replaced Normal sinus rhythm with complete heart block Referred By: Generic ED Physician Electronically Signed By:BASIL DAVIS MD
[2024-01-23 16:49] VITALS: BP 149/85; PULSE 82; RESP 20; TEMP 36.1; O2SAT 95; BMI 34.2
[2024-01-23 17:10] LABS: MANUAL DIFF FLAG NO
[2024-01-23 17:17] VITALS: BP 162/79; PULSE 86; RESP 17; TEMP 36.7; O2SAT 93
[2024-01-23 17:28] LABS: Alanine Aminotransferase 65 U/L (0-40); Albumin Level 4.5 g/dL (3.5-5.0); Alkaline Phosphatase 105 U/L (39-117); Anion Gap 15 (12-20); Aspartate Amino Transferase 75 U/L (5-37); Bilirubin Total 0.5 mg/dL (0.0-1.0); Blood Urea Nitrogen 11 mg/dL (9-16); Calcium 9.7 mg/dL (8.4-10.2); Carbon Dioxide 22 mmol/L (22-29); Chloride 104 mmol/L (96-108); Creatinine Clr Calc Pharmacy 74.8; Estimated Glomerular Filt Rate > 60; Glucose Random 113 mg/dL (60-115); Potassium 3.8 mmol/L (3.3-5.1); Sodium 137 mmol/L (135-145); Total Protein 8.3 g/dL (6.5-8.0)
[2024-01-23 17:34] LABS: B Type Natriuretic Peptide 58 pg/mL (<100)
--- NOTE | 2024-01-23 17:34 | PC.NURSE ---
Pt arrives to ED with c/o nausea and lightheadedness starting late this morning. A&x3, VSS, and afebrile. Per Pt, no vomiting but at times felt he may. Family at bedside reporting this is unusual behavior for Pt. family reports Pt has a pacemaker. Blood labs sent, awaiting results. NAD noted at this time.
[2024-01-23 17:35] LABS: Troponin-I High Sensitivity 6.4 ng/L (<3.5-35.0)
[2024-01-23 17:38] LABS: Basophils Absolute Auto 0.1 X10*3/uL (0.0-0.2); Basophils Percent Auto 0.7 % (0-2); Eosinophils Absolute Auto 0.4 X10*3/uL (0.0-0.4); Eosinophils Percent Auto 3.5 % (0-4); Hematocrit 43.7 % (42.0-52.0); Imm Gran Abs Auto 0.04 X10*3/uL (0.00-0.03); Imm Gran Pct Auto 0.4 % (0.0-0.4); Lymphocytes Absolute Auto 2.6 X10*3/uL (1.2-4.9); Lymphocytes Percent Auto 25.9 % (20-40); Mean Corpuscular HGB Conc 34.3 g/dl (31.0-36.0); Mean Corpuscular Hemoglobin 29.4 pg (27.0-33.0); Mean Corpuscular Volume 85.7 fL (80.0-98.0); Mean Platelet Volume 11.5 fL (9.4-12.4); Monocytes Absolute Auto 0.9 X10*3/uL (0.1-1.2); Monocytes Percent Auto 8.9 % (2-11); Neutrophils Absolute Auto 6.1 x10*3/uL (2.0-8.3); Neutrophils Percent Auto 60.6 % (45-73); Platelet Count 142 X10*3/uL (160-400); Red Cell Distribution Width 14.6 % (11.0-16.0)
--- NOTE | 2024-01-23 17:58 | PC.NURSE ---
Daughter reports Pt has been getting the chills. Warm blanket provided. Pt awaiting blood lab results and provider.
[2024-01-23 18:00] VITALS: BP 165/93; PULSE 87; RESP 18; O2SAT 93
[2024-01-23 18:15] LABS: INTERNATIONAL NORM RATIO 1.1 (0.9-1.1); Prothrombin Time 13.6 SEC (11.1-13.3)
--- NOTE | 2024-01-23 18:29 | ED_ITS ---
HPI - General Adult General Chief complaint: Dizziness Stated complaint: chest pain/sick to the stomach Time Seen by Provider: 01/23/24 18:07 Source: patient Mode of arrival: ambulatory Limitations: no limitations History of Present Illness ED Provider: monique ARRINGTON narrative: Patient 88-year-old with history of hypertension complete heart block status post DDD pacemaker placed in 08/04 comes here as was feeling lightheaded dizzy nauseated earlier today check the blood pressure was 170/93 took extra amlodipine 2.5 mg at 15:00 patient has used to be on 10 mg amlodipine daily but change to 7.5 mg last month no fever no chills no cough no shortness a breath no chest pain or palpitation Related Data Home Medications ?Medication ?Instructions ?Recorded ?Confirmed atorvastatin 20 mg tablet 20 mg PO BEDTIME 03/31/22 11/16/23 calcium carbonate (Calcium 600) 600 mg PO DAILY 03/31/22 11/16/23 multivitamin 1 tab PO DAILY 03/31/22 11/16/23 aspirin 81 mg chewable tablet 81 mg PO DAILY 07/29/23 11/16/23 Previous Rx's ?Medication ?Instructions ?Recorded amlodipine 10 mg tablet 10 mg PO DAILY #30 tabs 11/05/23 Allergies Allergy/AdvReac Type Severity Reaction Status Date / Time amoxicillin [From Augmentin] Allergy Severe Rash Verified 01/23/24 16:51 clavulanic acid Allergy Severe Rash Verified 01/23/24 16:51 [From Augmentin] clindamycin Allergy Severe Hives Verified 01/23/24 16:51 levofloxacin [From Levaquin] Allergy Severe Headache Verified 01/23/24 16:51 Review of Systems 2 Review of Systems: Yes all other systems are reviewed and are negative PMF Past Medical History Medical History HTN (hypertension) ABEBE on CPAP 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 Father No problems noted. Social History Social History Patient Tobacco Use Status: Former Tobacco user Tobacco use type: Cigarette Years Smoked: 20 years Smoked in Last 30 Days: No Use of substances other than those prescribed or required for medical reasons: No Advance Directives: No Advance Directives Information Provided: No service: Yes Current occupational status: retired Current occupation: Right hand dominate Physical Exam ED Vital Signs: Vital Signs - 24 hr 01/23/24 16:49 01/23/24 17:17 01/23/24 18:00 Temperature 96.9 F 98.1 F Pulse Rate 82 86 87 Respiratory Rate 20 17 18 Blood Pressure 149/85 H 162/79 H 165/93 H Pulse Oximetry 95 93 93 Oxygen Delivery Method Room Air Room Air 01/23/24 18:50 01/23/24 18:50 01/23/24 18:51 Temperature Pulse Rate 81 84 87 Respiratory Rate Blood Pressure 161/79 H 160/85 H 141/83 H Pulse Oximetry Oxygen Delivery Method BMI result Body Mass Index 34.2 Appearance: Alert. Oriented X3. No acute distress. Eyes: PERRLA, No Nystagmus ENT: Pharynx normal. Oral Mucosa moist Neck: Normal inspection. Neck supple. CVS: Normal heart rate and rhythm. Pulses normal. Respiratory: No respiratory distress. Equal air entry bilateral, no wheezing/rales/rhonchi Abdomen: Soft and nontender. Bowel sounds are present, no mass palpable, no CVA tenderness Skin: Skin warm and dry. Normal skin color. Normal skin turgor. Extremities: No lower extremity edema. No calf tenderness Neuro: Oriented X 3. No motor deficit. No sensory deficit.No cerebellar signs , cranial nerves II-XII intact Medical Decision Making Medical Decision Making MDM Narrative: Patient with mild orthostatic hypotension stable labs asymptomatic on standing feeling much better patient is supposed to be on 10 mg of amlodipine but decreased to 7.5 off his own, advised him to increase the dose of amlodipine to 10 mg and checked the blood pressure before taking the medication and after patient had p.o. fluids in the ER ambulatory without any significant distress Differential Diagnosis Differential Diagnoses: The differential diagnosis associated with the presentation includes Lab Data [facility] Lab Attestation statement: I reviewed the patient's lab results. 01/23/24 17:05 01/23/24 17:05 Labs: Lab Results 07/14/24 Range/Units 17:05 WBC 10.0 (4.8-10.8) X10*3/uL RBC 5.10 (4.60-5.80) X10*6/uL Hgb 15.0 (14.0-18.0) g/dl Hct 43.7 (42.0-52.0) % MCV 85.7 (80.0-98.0) fL MCH 29.4 (27.0-33.0) pg MCHC 34.3 (31.0-36.0) g/dl RDW 14.6 (11.0-16.0) % Plt Count 142 L (160-400) X10*3/uL MPV 11.5 (9.4-12.4) fL Immature Gran % (Auto) 0.4 (0.0-0.4) % Neut % (Auto) 60.6 (45-73) % Lymph % (Auto) 25.9 (20-40) % [place] % (Auto) 8.9 (2-11) % Eos % (Auto) 3.5 (0-4) % Baso % (Auto) 0.7 (0-2) % Lymph # (Auto) 2.6 (1.2-4.9) X10*3/uL [place] # (Auto) 0.9 (0.1-1.2) X10*3/uL Eos # (Auto) 0.4 (0.0-0.4) X10*3/uL Baso # (Auto) 0.1 (0.0-0.2) X10*3/uL Abs Immat Gran (auto) 0.04 H (0.00-0.03) X10*3/uL Absolute Neuts (auto) 6.1 (2.0-8.3) x10*3/uL Absolute Nucleated RBC 0.000 (0.0-0.012) X10*3/uL Nucleated RBC % (auto) 0.0 (0.0-0.2) /100WBC PT 13.6 H (11.1-13.3) SEC INR 1.1 (0.9-1.1) APTT 56.0 H (26.0-36.8) SEC Sodium 137 (135-145) mmol/L Potassium 3.8 (3.3-5.1) mmol/L Chloride 104 (96-108) mmol/L Carbon Dioxide 22 (22-29) mmol/L Anion Gap 15 (12-20) BUN 11 (9-16) mg/dL Creatinine 0.79 (0.5-1.4) mg/dL Estim Creat Clear Calc 74.8 Estimated GFR > 60 Random Glucose 113 (60-115) mg/dL Calcium 9.7 (8.4-10.2) mg/dL Total Bilirubin 0.5 (0.0-1.0) mg/dL AST 75 H (5-37) U/L ALT 65 H (0-40) U/L Alkaline Phosphatase 105 (39-117) U/L Troponin I High Sens 6.4 (<3.5-35.0) ng/L B-Natriuretic Peptide 58 (<100) pg/mL Total Protein 8.3 H (6.5-8.0) g/dL Albumin 4.5 (3.5-5.0) g/dL Independent Interpretation I performed an independent interpretation of an: EKG Interpretation: Atrial sensed ventricular paced rhythm heart rate 82 beats per minute no acute ST T wave changes no acute ischemia Discharge Plan Discharge Clinical Impression: Hypertension Patient Disposition: Home, Self-Care Instructions: Chronic Hypertension (ED) Additional Instructions: Decrease salt intake, drink plenty of fluids Increase the dose of amlodipine to 10 mg daily Check blood pressure before taking the medicine and before going to bed Normal pressure should be less than 135/85 If blood pressure persistently elevated 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
[2024-01-23 18:50] VITALS: BP 160/85; BP 161/79; PULSE 81; PULSE 84
[2024-01-23 18:51] VITALS: BP 141/83; PULSE 87
[2024-01-23 19:52] VITALS: BP 156/74; PULSE 85; RESP 20; TEMP 36.7; O2SAT 97
== END 2024-01-23 19:54 | disposition home or self-care (01) ==
PROVIDERS: Physician Assistant; Emergency Provider Internal Medicine; PCP Internal Medicine
DX: R42 Dizziness and giddiness (principal); R07.89 Other chest pain; I10 Essential (primary) hypertension; R06.02 Shortness of breath; Z79.899 Other long term (current) drug therapy
CPT/HCPCS: 36415; 80053; 83880; 84484; 85025; 85610; 85730; 93005; 99284; 99285

== ENCOUNTER → 2024-01-23 16:33 | Outpatient (BNV) | payer MEDICARE, SELFPAY | PROVIDERS: Emergency Provider Internal Medicine; PCP Internal Medicine; Visit Provider Internal Medicine Cardiovascular Disease | DX: R07.9 Chest pain, unspecified (principal); R94.31 Abnormal electrocardiogram [ECG] [EKG] | CPT/HCPCS: 93010 ==

== ENCOUNTER 2024-02-14 13:00 | Outpatient (AMB) | payer MEDICARE, SELFPAY ==
--- NOTE | 2024-02-14 13:07 | A.OFFVIS_ITS ---
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 [employer] Required: No Accompanied by: Daughter Allergies amoxicillin [From Augmentin] Allergy (Severe, Verified 01/23/24 16:51) Rash clavulanic acid [From Augmentin] Allergy (Severe, Verified 01/23/24 16:51) Rash clindamycin Allergy (Severe, Verified 01/23/24 16:51) Hives levofloxacin [From Levaquin] Allergy (Severe, Verified 01/23/24 16:51) Headache Medication List - Last Reconciled 02/14/24 by Wander Berrios MD amlodipine 10 mg PO DAILY aspirin 81 mg PO DAILY atorvastatin 20 mg PO BEDTIME calcium carbonate (Calcium 600) 600 mg PO DAILY multivitamin 1 tab PO DAILY HPI Comments Details: Clive returns for follow-up. To recall, he was admitted with syncope in the past. Telemetry had shown evidence of complete heart block. That required urgent pacemaker placement. Since that time, no new issues. He states that he is feeling fine. No cardiac symptoms. In the past, he was on beta-blockers but now he is on amlodipine for hypertension. 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 Father No problems noted. Social History Patient Tobacco Use Status: Former Tobacco user Tobacco use type: Cigarette Years Smoked: 20 years service: Yes Current occupational status: retired Current occupation: Right hand dominate Review of Systems Const Denies chills, Denies fatigue, Denies fever(s), Denies weight gain and Denies weight loss ENT Denies dizziness Card Denies chest pain, Denies leg edema, Denies lightheadedness, Denies palpitations, Denies dyspnea on exertion, Denies orthopnea and Denies other Resp Denies cough and Denies dyspnea on exertion GI Denies hematochezia and Denies change in stool character Musc Denies abnormal gait, Denies muscle weakness, Denies numbness, Denies radiating pain into limb and Denies tingling Neuro Denies abnormal gait, Denies dizziness, Denies numbness and Denies tingling Endo Denies fatigue and Denies palpitations Physical Exam Vital Signs: Last Vital Signs Pulse 74 02/14/24 13:44 BP 140/82 H 02/14/24 13:44 BMI result Body Mass Index 34.0 Const General: comfortable and no acute distress Orientation/consciousness: patient oriented x3 HEENT Other: Unremarkable Head: Yes normal to inspection Neck Neck: Yes normal visual inspection Chest Chest palpation & inspection: normal inspection of the chest Resp Auscultation: clear to auscultation bilaterally Cardio Palpation: normal PMI Heart sounds: S1 normal heart sound present, S2 normal heart sound present, no gallops, no murmurs and no rubs GI Palpation (GI): Soft to palpation Back/Spine/Pelvis Other: unremarkable Skin General skin exam: no rashes or lesions noted Neuro General: patient oriented x3 Extrem General: Yes normal to inspection Psych Mental Status: mental status grossly normal Office Procedures Cardiac Device Check Cardiac Device Check Details: Pacemaker interrogated today. Dual-chamber device, programmed DDD mode. Battery status more than 8 years. Normal lead parameters. Atrial pacing 2.4%. Ventricular pacing > 99%. Overall, normal device function. [id number] Cardiac Device Check, pacemaker dual lead Procedure code (CPT) selection complete Assessment & Plan Assessment & Plan (1) Complete heart block: Code(s): I44.2 - Atrioventricular block, complete Category: Medical (2) Status post cardiac pacemaker procedure: Code(s): Z95.0 - Presence of cardiac pacemaker Category: Surgical (3) HTN (hypertension): Code(s): I10 - Essential (primary) hypertension Category: Medical Plan Pacemaker is functioning normally. With regard to hypertension, he was on atenolol and that has now been changed to amlodipine. Stable. Home blood pressures are lower-in the 120s/130s. May continue to monitor but otherwise no specific changes for now. Discussed in detail with daughter who came for appointment. Follow-up in 6 months. Coding Level of Care Code Est Pt Level 3 (35862) Diagnoses Complete heart block I44.2 Status post cardiac pacemaker procedure Z95.0 HTN (hypertension) I10 CPT Codes Cardiac Device Check - Cardiac Device 2: [id number] Cardiac Device Check, pacemaker dual lead ([id number])
[2024-02-14 13:44] VITALS: BP 140/82; PULSE 74; BMI 34.0
== END 2024-02-14 14:17 | disposition home or self-care (01) ==
PROVIDERS: PCP Internal Medicine; Visit Provider Internal Medicine
DX: I44.2 Atrioventricular block, complete (principal); Z95.0 Presence of cardiac pacemaker; I10 Essential (primary) hypertension
CPT/HCPCS: 93280; 99213

== ENCOUNTER → 2024-02-14 13:00 | Outpatient (BNVA) | payer MEDICARE, SELFPAY | PROVIDERS: PCP Internal Medicine; Visit Provider Internal Medicine | DX: I10 Essential (primary) hypertension (principal); I44.2 Atrioventricular block, complete; Z45.018 Encounter for adjustment and management of other part of cardiac pacemaker | CPT/HCPCS: 93280; 99212 ==

== ENCOUNTER → 2024-02-22 23:59 | Outpatient (BNV) | payer MEDICARE, SELFPAY ==
--- NOTE | 2024-02-27 18:58 | MHC.OFFVIS ---
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 Father No problems noted. 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 Overall normal device function. [id number] Cardiac Device Interrogation, pacemaker Procedure code (CPT) selection complete Assessment & Plan Assessment & Plan (1) Complete heart block: Code(s): I44.2 - Atrioventricular block, complete Category: Medical Plan x Coding Level of Care Code Procedure Only Diagnoses Complete heart block I44.2 CPT Codes Cardiac Device Check - Cardiac Device 12: [id number] Cardiac Device Interrogation, pacemaker ([id number])
== END ==
PROVIDERS: PCP Internal Medicine; Visit Provider Internal Medicine
DX: I44.2 Atrioventricular block, complete (principal); Z95.0 Presence of cardiac pacemaker
CPT/HCPCS: 93294

== ENCOUNTER 2024-03-28 13:41 | Outpatient (AMB) | payer MEDICARE, SELFPAY ==
[2024-03-28 13:55] VITALS: BP 128/60; PULSE 77; O2SAT 96; BMI 33.1
--- NOTE | 2024-03-28 13:55 | MHC.OFFVIS ---
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 He has been using CPAP now for many years. The CPAP therapy has been affecting beneficial for him. he does uses CPAP more than 4 hours a night. He did bring it in we were able to downloaded. Average use is around 6 hours and 30 minutes. His average pressure is close to 11 cm. Currently the APAP settings are working well for him. His AHI is that the 0.6 events an hour. Recently he did get a call from his [employer] company, [employer]. Did explain to her the machine is no longer working effectively. He would require a replacement machine at this time. Therefore, go ahead and submit a new prescription for a new APAP AirSense 11. respiratory levi he is doing well. On examination he does have some wheezing. He does not use any inhalers and which is not to use 1 at this time. The patient understands that if his wheezing shortness of breath is worse he is to call the office with start him on inhaler therapy. Patient will also undergo a chest x-ray. The 10/05/2022 the patient is here for a pulmonary follow-up visit. The patient continues uses CPAP therapy. The therapy continues to be affecting beneficial. He does use a nasal mask. The problem is that this current nasal mask is irritating his nasal bridge. He is having some breakdown in irritation making it hard for him to tolerate he also complains of a dry mouth. In the office year we had a F 30 mask available. Size small. Seems to fit him well. He understands the fullface mask will help with his mouth dryness he understands that the dryness is not good for his gingival and dental health. He is willing to try. I also sent a prescription to his DME company, [employer] in order for him to continue with this mask. If however the patient cannot tolerate the fullface mask he can always consider an N30 I mask which should be a cradle type of mask. We did review his chest x-ray. Was within normal limits. No acute disease. Denies any significant wheezing overall he is doing better no significant shortness of breath. He is grieving the loss of his in this has been very hard. He has been staying with his son and daughter. 04/01/2023 the patient is here for a pulmonary follow-up visit. The patient has been doing well from a CPAP standpoint. The CPAP therapy has been affecting beneficial. He has been using his equipment and has been getting supplies regularly. Sometimes he alternates from his old mask to the new mask but ultimately continues use it more than 4 hours a night at therapy has been affecting beneficial. Regards the asthma seems to be doing well. Has not required his inhaler. The patient has been complaining of some dyspnea on exertion but minimal. He is staying busy working in the [employer] and help his neighbors. He is still grieving the loss of his . He is here for here in the room. The patient does have some crackles on his left base will therefore will request a repeat x-ray to address those findings. 03/28/2024 the patient is here for a pulmonary follow-up visit. The patient overall has been doing well from a respiratory status. He is doing well after his pacemaker placement. He did have a chest x-ray back in 07/31/2023 demonstrating no acute disease pacemaker in good placement. He has been using the CPAP the CPAP therapy continues to be affecting beneficial for him. He does use it for more than 4 hours a night. He does use a fullface mask. His machine now is older than 8 years. He does get his machine and also supplies through [employer]. Based on the fact machine is older and is not download any information we can not access that online then becomes limited as far as the ability of us to help him with the adjustments to the machine. Will go ahead and request a replacement machine at this time. He will bring his machine to the next visit we can further adjusted. From a respiratory status continues to do well. He does have some dyspnea on exertion which is mild in severity. He does have a rescue inhaler which she has not not use. Otherwise patient is without any other complaints. If he has any issues prior to next visit he will call for an earlier assessment. 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 Father No problems noted. Social History Patient Tobacco Use Status: Former Tobacco user Tobacco use type: Cigarette Years Smoked: 20 years service: Yes Current occupational status: retired Current occupation: Right hand dominate Review of Systems Const Denies fatigue Eyes Denies change in vision ENT Denies change in voice Card Denies chest pain Resp Reports cough and Denies wheezing GI Reports no additional complaints Musc Reports no additional complaints Skin/Breast Denies rash Neuro Reports no additional complaints Endo Denies fatigue Francis/Lymph Denies easy bleeding Aller/Immun Denies wheezing Physical Exam Vital Signs: Last Vital Signs Pulse 77 03/28/24 13:55 BP 128/60 03/28/24 13:55 Pulse Ox 96 03/28/24 13:55 Oxygen Delivery Method Room Air 03/28/24 13:55 BMI result Body Mass Index 33.1 Const General: comfortable HEENT Head: Yes normal to inspection Neck Neck: Yes supple Chest Chest palpation & inspection: normal inspection of the chest Resp Effort & Inspection: normal respiratory effort Auscultation: crackles Cardio Rate: regular rate Rhythm: regular rhythm Heart sounds: S1 normal heart sound present and S2 normal heart sound present GI Auscultation: normal bowel sounds Skin General skin exam: no rashes or lesions noted Lesions: no lesions Extrem General: Yes no clubbing, cyanosis or edema Assessment & Plan Assessment & Plan (1) ABEBE on CPAP: Code(s): G47.33 - Obstructive sleep apnea (adult) (pediatric); Z99.89 - Dependence on other enabling machines and devices Category: Medical (2) Chest crackles: Code(s): R09.89 - Other specified symptoms and signs involving the circulatory and respiratory systems Category: Medical Plan continue APAP, his APAP is older than 5 years and does not be adjusted. Will request a replacement APAP airsense 11 at this time F30 small mask consider OBED F/U 10-12 months Coding Level of Care Code Est Pt Level 4 (60186) Diagnoses ABEBE on CPAP G47.33; Z99.89 Chest crackles R09.89 Time Spent (min) 16
== END 2024-03-28 14:17 | disposition home or self-care (01) ==
PROVIDERS: PCP Internal Medicine; Visit Provider Hospitalist
DX: G47.33 Obstructive sleep apnea (adult) (pediatric) (principal); Z99.89 Dependence on other enabling machines and devices; R09.89 Other specified symptoms and signs involving the circulatory and respiratory systems
CPT/HCPCS: 99214

== ENCOUNTER → 2024-03-28 13:41 | Outpatient (BNVA) | payer MEDICARE, SELFPAY | PROVIDERS: PCP Internal Medicine; Visit Provider Hospitalist | DX: G47.33 Obstructive sleep apnea (adult) (pediatric) (principal); R09.89 Other specified symptoms and signs involving the circulatory and respiratory systems; Z99.89 Dependence on other enabling machines and devices | CPT/HCPCS: 99212 ==

== ENCOUNTER → 2024-05-23 23:59 | Outpatient (BNV) | payer MEDICARE, SELFPAY ==
--- NOTE | 2024-05-25 12:37 | A.OFFVIS_ITS ---
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 Father No problems noted. 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 Overall normal device function. [id number] Cardiac Device Interrogation, pacemaker Procedure code (CPT) selection complete Assessment & Plan Assessment & Plan (1) Pacemaker: Code(s): Z95.0 - Presence of cardiac pacemaker Category: Medical (2) Complete heart block: Code(s): I44.2 - Atrioventricular block, complete Category: Medical Plan x Coding Level of Care Code Procedure Only Diagnoses Pacemaker Z95.0 Complete heart block I44.2 CPT Codes Cardiac Device Check - Cardiac Device 12: [id number] Cardiac Device Interrogation, pacemaker ([id number])
== END ==
PROVIDERS: PCP Internal Medicine; Visit Provider Internal Medicine
DX: I44.2 Atrioventricular block, complete (principal); Z95.0 Presence of cardiac pacemaker
CPT/HCPCS: 93294

== ENCOUNTER → 2024-07-26 14:47 | Outpatient (REF) | payer MEDICARE, SELFPAY | LOC: HO.SL 14:47 | PROVIDERS: PCP Internal Medicine; Visit Provider Hospitalist | DX: G47.33 Obstructive sleep apnea (adult) (pediatric) (principal) | CPT/HCPCS: 95806 ==

== ENCOUNTER 2024-08-14 12:29 | Outpatient (AMB) | payer MEDICARE, SELFPAY ==
[2024-08-14 13:20] VITALS: BP 128/68; PULSE 78; BMI 33.4
--- NOTE | 2024-08-14 13:20 | A.OFFVIS_ITS ---
Vital Signs 08/14/24 13:20 Height 5 ft 8 in Weight 220 lb BMI 33.4 BP 128/68 Blood Pressure Location Lt brachial Position Sitting Pulse 78 Pulse Source Pulse Oximeter Intake Visit Reasons: [address] [facility] ck Allergies amoxicillin [From Augmentin] Allergy (Severe, Verified 03/28/24 14:02) Rash clavulanic acid [From Augmentin] Allergy (Severe, Verified 03/28/24 14:02) Rash clindamycin Allergy (Severe, Verified 03/28/24 14:02) Hives levofloxacin [From Levaquin] Allergy (Severe, Verified 03/28/24 14:02) Headache Medication List - Last Reconciled 08/14/24 by Wander Berrios MD amlodipine 10 mg PO DAILY aspirin 81 mg PO DAILY atorvastatin 20 mg PO BEDTIME calcium carbonate (Calcium 600) 600 mg PO DAILY multivitamin 1 tab PO DAILY HPI Comments Details: Clive returns for follow-up. To recall, he was admitted with syncope in the past. Telemetry had shown evidence of complete heart block. That required urgent pacemaker placement. In the past, he was on beta-blockers but now he is on amlodipine for hypertension. Since last seen, he has had absolutely no complaints. He states he feels great. 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 Father No problems noted. Social History Patient Tobacco Use Status: Former Tobacco user Tobacco use type: Cigarette Years Smoked: 20 years service: Yes Current occupational status: retired Current occupation: Right hand dominate Review of Systems Const Denies weakness ENT Denies dizziness Card Denies chest pain, Denies chest pain with activity, Denies syncope, Denies rapid heart rate, Denies pedal edema, Denies edema, Denies leg edema, Denies lightheadedness, Denies palpitations, Denies dyspnea, Denies dyspnea on exertion and Denies orthopnea Resp Denies cough, Denies dyspnea and Denies dyspnea on exertion GI Denies hematochezia and Denies change in stool character Musc Denies abnormal gait, Denies muscle cramps, Denies muscle weakness, Denies numbness, Denies radiating pain into limb and Denies tingling Neuro Denies abnormal gait, Denies dizziness, Denies syncope, Denies numbness, Denies tingling and Denies weakness Endo Denies palpitations Physical Exam Vital Signs: Last Vital Signs Pulse 78 08/14/24 13:20 BP 128/68 08/14/24 13:20 BMI result Body Mass Index 33.4 Const General: comfortable and no acute distress Orientation/consciousness: patient oriented x3 HEENT Other: Unremarkable Head: Yes normal to inspection Neck Neck: Yes normal visual inspection Chest Chest palpation & inspection: normal inspection of the chest Resp Auscultation: clear to auscultation bilaterally Cardio Palpation: normal PMI Heart sounds: S1 normal heart sound present, S2 normal heart sound present, no gallops, no murmurs and no rubs GI Palpation (GI): Soft to palpation Back/Spine/Pelvis Other: unremarkable Skin General skin exam: no rashes or lesions noted Neuro General: patient oriented x3 Extrem General: Yes normal to inspection Psych Mental Status: mental status grossly normal Office Procedures Cardiac Device Check Cardiac Device Check Details: Pacemaker interrogated today. Dual-chamber device, programmed DDD. Battery status 8.1-9 years. Normal lead parameters. Atrial pacing 10%. Ventricular pacing > 99%. Overall, normal device function. [id number] Cardiac Device Interrogation, pacemaker Procedure code (CPT) selection complete Assessment & Plan Assessment & Plan (1) Complete heart block: Code(s): I44.2 - Atrioventricular block, complete Category: Medical (2) Status post cardiac pacemaker procedure: Code(s): Z95.0 - Presence of cardiac pacemaker Category: Surgical (3) HTN (hypertension): Code(s): I10 - Essential (primary) hypertension Category: Medical Plan Pacemaker checked and function normally. Can be followed remotely. With regard to hypertension, he was on atenolol and that has now been changed to amlodipine. Continue without changes. Follow-up in 1 year. In the interim, call with concerns. Discussed with daughter. Coding Level of Care Code Est Pt Level 3 (27547) Diagnoses Complete heart block I44.2 Status post cardiac pacemaker procedure Z95.0 HTN (hypertension) I10 CPT Codes Cardiac Device Check - Cardiac Device 12: [id number] Cardiac Device Interrogation, pacemaker ([id number])
--- OUTSIDE RECORDS SUMMARY | 2024-08-14 13:49 | XMS_ITS | Data Portability ---
Author Organization [place] - [facility], Allergy Address [address] [place] [id number] Assessment Encounter Date Assessment Date Assessment LastModified by Organization Details LastModified Time 04/07/2024 04/07/2024 88-year-old male presents for evaluation of his left ear. On examination there is no sign of TM perforation or trauma to the ear. Right otologic exam is unremarkable. Reassurance was provided and he may follow-up in 6 months for routine ear cleaning. [email or web address] Not available 04/07/2024 13:38:24 Plan of Treatment Reminders Order Date Submit Date Provider Last Modified By Organization Details Last Modified Time Details Appointments Establish ed 15 2024 01:00P M EDDIE QUINTANILLA PA-C Not available Not available Not available Lab None recorded. Referral None recorded. Procedures None recorded. Surgeries None recorded. Imaging None recorded. Medication Orders None recorded. Patient TargetsNo targets recorded. Patient InstructionsNo instructions recorded. Reason for Referral None Reported. Problems Name Problem SNOMED Code Status Onset Date Resolution Date Notes Provider Name and Address Organization Details Recorded Time Impacted cerumen 90759948 Active 2013 Impacted cerumen; Note: Date Diagnosed : 4 11:57 AM (380.4) Not Available [facility] 4 03:01:32 Impacted cerumen in left ear [id number] 03038 Active 2018 Impacted cerumen, left ear; Note: Date Diagnosed : 9 1:23 PM (H61.22) Not Available [facility] 4 03:01:29 Neoplasm of uncertain behavior of skin 00491420 Active 2021 Neoplasm of uncertain behavior of skin; Note: Date Diagnosed : 2 3:20 PM (D48.5) Not Available [facility] 4 03:01:31 Sensorine ural hearing loss of bilateral ears 433477004 Active 2019 Sensorine ural hearing loss, bilateral ; Note: Date Diagnosed : 08/03/2019 2:24 PM (H90.3) Not Available [facility] 4 03:01:30 Impacted cerumen of bilateral ears 69977338021 19568 Active 2015 Impacted cerumen, bilateral ; Note: Date Diagnosed : 01/31/2016 2:32 PM (H61.23) Impacte d cerumen, bilateral ; Note: Date Diagnosed : 5 2:14 PM (H61.23) ; Start Date : 5 Not Available [facility] 4 03:01:32 Otalgia of left ear 2139571894 Active 2023 EDDIE QUINTANILLA PA-C [address] [place] [address],[place] [address], Amylisa garcia, [place], [phone] , [facility] - [facility] 4 13:38:27 Problem Notes None recorded. Medical Equipment None Reported. Medications Name Sig Start Date Stop Date Status Note LastModified by Organization Details LastModified Time atorvasta tin 20 mg tablet active Not Available Not Available Not Available benzonata te 200 mg capsule TAKE 1 CAPSULE BY MOUTH 3 TIMES A DAY,X7 DAYS NEEDED FOR COUGH active Not Available Not Available No t Available Lotrisone 1 %-0.05 % topical cream 2015 active Medicati on ID: [id number] P rescribe d By Name: LIN Breaux nd Name: Lotrison e Send Method: E-Prescr ibed Sub s Allowed: subs OK Speci al Instruct ion: apply to external right ear bid X 2 weeks Me dication GenericN cherrie: Lotrison e Not Available Not Available Not Available amlodipin e 5 mg tablet TAKE 1 + 1/2 TABLET BY MOUTH EVERY DAY active Not Available Not Available No t Available amlodipin e 10 mg tablet TAKE 1 TABLET BY MOUTH EVERY DAY active Not Available Not Available No t Available benzonata te 100 mg capsule TAKE 1 CAPSULE BY MOUTH 3 TIMES A DAY FOR 10 DAYS active Not Available Not Available No t Available doxycycli ne hyclate 100 mg tablet TAKE 1 TABLET BY MOUTH TWICE A DAY FOR 7 DAYS active Not Available Not Available No t Available atenolol 50 mg tablet active Not Available Not Available Not Available tobramyci n 0.3 %-dexamet hasone 0.1 % eye drops,diogenes pension 10/17 completed Medicati on ID: [id number] Dur ation Value: 19 Reason: () Brand Name: tobramyc in-dexam ethasone Send Method: E-Prescr ibed Sub s Allowed: subs OK Speci al Instruct ion: INSTILL 1 DROP INTO LEFT EYE 4 TIMES A DAY DIRECTED Medicat ionGener icName: tobramyc in-dexam ethasone Not Available Not Available Not Available Vitals Date Recorded Body height Body mass index (BMI) Body weight Provider Name and Address Organization Details Last Updated DateTime 04/07/2024 173.99 cm 33.1 kg/m2 550860.91 g Lucy Pratt MA - [facility] 04/07/2024 13:10:17 Social History None recorded. Functional Status None recorded. Mental Status None recorded. Family History Nothing Reported. Medical History No medical history recorded. Past Encounters Encounter ID Performer Location Encounter Start Date Encounter Closed Date Diagnosis/Indication Diagnosis SNOMED-CT Code Diagnosis ICD10 Code Diagnosis Note [id number] FAUSTO FERRER MD [facility] [address] [phone] 04/07/2024 12:53:37 04/07/2024 13:32:33 Otalgia of left ear 9511199792 H92.02 Health Concerns Section Related Observation LastModified by Organization Detai ls LastModified Time None Recorded Concern Status LastModified by Organization Details LastModified Time None Recorded Advance Directives Directive None Recorded Payers Encounter Date Sequence Insurance Name Policy Number Policy Stephens Covered Member ID Stephens Member ID Guarantor Name 04/07/2024 2 [place] [id number] Clive Servin [id number] Clive Servin 04/07/2024 1 [place] [employer] Clive Servin [id number] Clive Servin Notes Date Note Type Note Provider Name and Address Organization Details Recorded Time 04/07/2024 text/html 88 year old male presents for evaluation of the left ear. He bumped his ear several days ago and had 1 day of pain which resolved. no otorrhea or bleeding. No hearing loss. FAUSTO MAURER MD [address] [place] [address], [phone], [facility] - [facility] 04/07/2024 16:50:35
--- OUTSIDE RECORDS SUMMARY | 2024-08-14 13:49 | XMS_ITS | Clinical Summary ---
Author Organization [facility] Address [address] [place] [address] Care Team Providers Care Fuel Efficient Aircraft Designer Name Role Phone Yusef Perez MD Primary Care Provider Allergies Active Allergy Reactions Criticality Noted Date Comments Amoxicillin-Pot Clavulanate 10/15/19 19 Clindamycin 10/14/2018 Levofloxacin 10/14/2018 Medications Medication Sig Dispensed Refills Start Date End Date Status atenolol (TENORMIN) tablet 50 mg 0 09/21/2018 Active atorvastatin (LIPITOR) tablet 20 mg 0 08/08/2018 Active aspirin 81 MG EC tablet Take 81 mg by mouth daily. 0 Active Active Problems Problem Noted Date Diagnosed Date Arthritis of knee, right 10/14/2018 Family History Medical History Relation Name Comments Heart disease Mother Hypertension Mother Relation Name Status Comments Mother Social History Tobacco Use Types Packs/Day Years Used Date Smoking Tobacco: Never Assessed Sex and Gender Information Value Date Recorded Sex Assigned at Not on file Gender Identity Not on file Sexual Orientation Not on file Last Filed Vital Signs Vital Sign Reading Time Taken Comments Blood Pressure - - Pulse - - Temperature - - Respiratory Rate - - Oxygen Saturation - - Inhaled Oxygen Concentration - - Weight 99.8 kg (220 lb) 10/14/2018 1:16 PM EDT Height 172.7 cm (5' 8 ) 10/14/2018 1:16 PM EDT Body Mass Index 33.45 10/14/2018 1:16 PM EDT Plan of Treatment Health Maintenance Due Date Last Done Comments COVID-19 Vaccine (#1) 1935 Depression Screening 1947 Preventative Health Evaluation 1953 DTap / Tdap / Td (1 - Tdap) 1954 Shingrix-Zoster Vaccine (1 of 2) 1985 Fall Risk Assessment 2000 Pneumococcal Vaccine (1 of 1 - PCV) 2000 RSV Adult > 60+ Yrs or Pregn ant (1 - 1-dose 75+ series) 2010 Influenza Vaccine (#1) 2024 Hepatitis B Vaccines Aged Out No long er eligible based on patient's age to complete this topic RSV Ped < 20 months Aged Out No longe r eligible based on patient's age to complete this topic Care Teams Fuel Efficient Aircraft Designer Relationship Specialty Start Date End Date Yusef Perez MD [address] [facility] [address] [place] [address] PCP - General Internal Medicine 09/16/18
== END 2024-08-14 13:46 | disposition home or self-care (01) ==
PROVIDERS: PCP Internal Medicine; Visit Provider Internal Medicine
DX: I44.2 Atrioventricular block, complete (principal); Z95.0 Presence of cardiac pacemaker; I10 Essential (primary) hypertension
CPT/HCPCS: 93280; 99213

== ENCOUNTER → 2024-08-14 12:29 | Outpatient (BNVA) | payer MEDICARE, SELFPAY | PROVIDERS: PCP Internal Medicine; Visit Provider Internal Medicine | DX: Z45.018 Encounter for adjustment and management of other part of cardiac pacemaker (principal); I44.2 Atrioventricular block, complete; I10 Essential (primary) hypertension | CPT/HCPCS: 93280; 99212 ==

== ENCOUNTER → 2024-08-22 23:59 | Outpatient (BNV) | payer MEDICARE, SELFPAY ==
--- NOTE | 2024-08-23 10:31 | A.OFFVIS_ITS ---
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 Father No problems noted. Social History Patient Tobacco Use Status: Former Tobacco user Tobacco use type: Cigarette Years Smoked: 20 years service: Yes Current occupational status: retired Current occupation: Right hand dominate Office Procedures Cardiac Device Check Cardiac Device Check Details: Date of service- 08/22/2024 ; Battery life >6 years; normal lead parameters; AP 6.6%; DIRECTOR OF HEALTH CARE MARKETING >99%; no significant arrhythmias. Overall normal device function. [id number] Cardiac Device Interrogation, pacemaker Procedure code (CPT) selection complete Assessment & Plan Assessment & Plan (1) Pacemaker: Code(s): Z95.0 - Presence of cardiac pacemaker Category: Medical (2) Complete heart block: Code(s): I44.2 - Atrioventricular block, complete Category: Medical Plan x Coding Level of Care Code Procedure Only Diagnoses Pacemaker Z95.0 Complete heart block I44.2 CPT Codes Cardiac Device Check - Cardiac Device 12: [id number] Cardiac Device Interrogation, pacemaker ([id number])
== END ==
PROVIDERS: PCP Internal Medicine; Visit Provider Internal Medicine
DX: I44.2 Atrioventricular block, complete (principal); Z95.0 Presence of cardiac pacemaker
CPT/HCPCS: 93294

== ENCOUNTER 2024-10-06 10:37 | Outpatient (AMB) | payer MEDICARE, SELFPAY ==
[2024-10-06 10:47] VITALS: BP 112/64; PULSE 72; O2SAT 95; BMI 34.8
--- NOTE | 2024-10-06 10:47 | MHC.OFFVIS ---
Vital Signs 10/06/24 10:47 Height 5 ft 8 in Weight 229 lb BMI 34.8 BP 112/64 Blood Pressure Location Lt brachial Position Sitting Pulse 72 Pulse Source Pulse Oximeter Pulse Oximetry (%) 95 Oxygen Delivery Method Room Air Intake Visit Reasons: Obstructive sleep apnea Gear Tooth Lapping Machine Operator Required: No Allergies amoxicillin [From Augmentin] Allergy (Severe, Verified 10/06/24 10:50) Rash clavulanic acid [From Augmentin] Allergy (Severe, Verified 10/06/24 10:50) Rash clindamycin Allergy (Severe, Verified 10/06/24 10:50) Hives levofloxacin [From Levaquin] Allergy (Severe, Verified 10/06/24 10:50) Headache HPI Comments Details: The patient is an 89-year-old gentleman with known obstructive sleep apnea. He has been using CPAP now for many years. The CPAP therapy has been affecting beneficial for him. he does uses CPAP more than 4 hours a night. He did bring it in we were able to downloaded. Average use is around 6 hours and 30 minutes. His average pressure is close to 11 cm. Currently the APAP settings are working well for him. His AHI is that the 0.6 events an hour. Recently he did get a call from his [employer] company, [employer]. Did explain to her the machine is no longer working effectively. He would require a replacement machine at this time. Therefore, go ahead and submit a new prescription for a new APAP AirSense 11. respiratory levi he is doing well. On examination he does have some wheezing. He does not use any inhalers and which is not to use 1 at this time. The patient understands that if his wheezing shortness of breath is worse he is to call the office with start him on inhaler therapy. Patient will also undergo a chest x-ray. The 10/05/2022 the patient is here for a pulmonary follow-up visit. The patient continues uses CPAP therapy. The therapy continues to be affecting beneficial. He does use a nasal mask. The problem is that this current nasal mask is irritating his nasal bridge. He is having some breakdown in irritation making it hard for him to tolerate he also complains of a dry mouth. In the office year we had a F 30 mask available. Size small. Seems to fit him well. He understands the fullface mask will help with his mouth dryness he understands that the dryness is not good for his gingival and dental health. He is willing to try. I also sent a prescription to his DME company, [employer] in order for him to continue with this mask. If however the patient cannot tolerate the fullface mask he can always consider an N30 I mask which should be a cradle type of mask. We did review his chest x-ray. Was within normal limits. No acute disease. Denies any significant wheezing overall he is doing better no significant shortness of breath. He is grieving the loss of his in this has been very hard. He has been staying with his son and daughter. 04/01/2023 the patient is here for a pulmonary follow-up visit. The patient has been doing well from a CPAP standpoint. The CPAP therapy has been affecting beneficial. He has been using his equipment and has been getting supplies regularly. Sometimes he alternates from his old mask to the new mask but ultimately continues use it more than 4 hours a night at therapy has been affecting beneficial. Regards the asthma seems to be doing well. Has not required his inhaler. The patient has been complaining of some dyspnea on exertion but minimal. He is staying busy working in the [employer] and help his neighbors. He is still grieving the loss of his . He is here for here in the room. The patient does have some crackles on his left base will therefore will request a repeat x-ray to address those findings. 03/28/2024 the patient is here for a pulmonary follow-up visit. The patient overall has been doing well from a respiratory status. He is doing well after his pacemaker placement. He did have a chest x-ray back in 07/31/2023 demonstrating no acute disease pacemaker in good placement. He has been using the CPAP the CPAP therapy continues to be affecting beneficial for him. He does use it for more than 4 hours a night. He does use a fullface mask. His machine now is older than 8 years. He does get his machine and also supplies through [employer]. Based on the fact machine is older and is not download any information we can not access that online then becomes limited as far as the ability of us to help him with the adjustments to the machine. Will go ahead and request a replacement machine at this time. He will bring his machine to the next visit we can further adjusted. From a respiratory status continues to do well. He does have some dyspnea on exertion which is mild in severity. He does have a rescue inhaler which she has not not use. Otherwise patient is without any other complaints. If he has any issues prior to next visit he will call for an earlier assessment. 10/06/2024 the patient is here for pulmonary follow-up visit. Overall the patient has been doing well. Denies any worsening respiratory symptoms. He did get a new APAP. Although he has not been using it because he does not like the new technology. He still been using his old machine. He does use it more than 4 hours a night. He likes his mask. The patient denies any significant shortness of breath. He does not use any inhalers. I did reach out to the [employer] company to see if they can provide him with a reach in order for him to switch over to the new machine in order to continue getting supplies regularly. Will follow-up in a year. If he has any issues prior to this he will call for an earlier assessment. 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 Father No problems noted. Social History Patient Tobacco Use Status: Former Tobacco user Tobacco use type: Cigarette Years Smoked: 20 years service: Yes Current occupational status: retired Current occupation: Right hand dominate Review of Systems Const Denies fatigue Eyes Denies change in vision ENT Denies change in voice Card Denies chest pain Resp Reports cough and Denies wheezing GI Reports no additional complaints Musc Reports no additional complaints Skin/Breast Denies rash Neuro Reports no additional complaints Endo Denies fatigue Francis/Lymph Denies easy bleeding Aller/Immun Denies wheezing Physical Exam Vital Signs: Last Vital Signs Pulse 72 10/06/24 10:47 BP 112/64 10/06/24 10:47 Pulse Ox 95 10/06/24 10:47 Oxygen Delivery Method Room Air 10/06/24 10:47 BMI result Body Mass Index 34.8 Const General: comfortable HEENT Head: Yes normal to inspection Neck Neck: Yes supple Chest Chest palpation & inspection: normal inspection of the chest Resp Effort & Inspection: normal respiratory effort Auscultation: diminished lung sounds Cardio Rate: regular rate Rhythm: regular rhythm Heart sounds: S1 normal heart sound present and S2 normal heart sound present GI Auscultation: normal bowel sounds Skin General skin exam: no rashes or lesions noted Lesions: no lesions Extrem General: Yes no clubbing, cyanosis or edema Assessment & Plan Assessment & Plan (1) BAEBE on CPAP: Code(s): G47.33 - Obstructive sleep apnea (adult) (pediatric); Z99.89 - Dependence on other enabling machines and devices Category: Medical Plan continue APAP, his APAP is older than 5 years and does not be adjusted. Will request a replacement APAP airsense 11 at this time F30 small mask consider OBED F/U 10-12 months Coding Level of Care Code Est Pt Level 3 (98938) Diagnoses ABEBE on CPAP G47.33; Z99.89 Time Spent (min) 16
== END 2024-10-06 11:16 | disposition home or self-care (01) ==
LOC: HO.HPS 10:37
PROVIDERS: PCP Internal Medicine; Visit Provider Hospitalist
DX: G47.33 Obstructive sleep apnea (adult) (pediatric) (principal); Z99.89 Dependence on other enabling machines and devices
CPT/HCPCS: 99213

== ENCOUNTER → 2024-10-06 10:37 | Outpatient (BNVA) | payer MEDICARE, SELFPAY | PROVIDERS: PCP Internal Medicine; Visit Provider Hospitalist | DX: G47.33 Obstructive sleep apnea (adult) (pediatric) (principal); Z99.89 Dependence on other enabling machines and devices | CPT/HCPCS: 99212 ==

== ENCOUNTER → 2024-11-21 23:59 | Outpatient (BNV) | payer MEDICARE, SELFPAY ==
--- NOTE | 2024-11-21 12:44 | MHC.OFFVIS ---
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 Father No problems noted. 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 Overall normal device function. [id number] Cardiac Device Interrogation, pacemaker Procedure code (CPT) selection complete Assessment & Plan Assessment & Plan (1) Pacemaker: Code(s): Z95.0 - Presence of cardiac pacemaker Category: Medical (2) Complete heart block: Code(s): I44.2 - Atrioventricular block, complete Category: Medical Plan x Coding Level of Care Code Procedure Only Diagnoses Pacemaker Z95.0 Complete heart block I44.2 CPT Codes Cardiac Device Check - Cardiac Device 12: [id number] Cardiac Device Interrogation, pacemaker ([id number])
== END ==
PROVIDERS: PCP Internal Medicine; Visit Provider Internal Medicine
DX: I44.2 Atrioventricular block, complete (principal); Z95.0 Presence of cardiac pacemaker
CPT/HCPCS: 93294

== ENCOUNTER 2025-02-06 10:11 | Outpatient (AMB) | payer MEDICARE, SELFPAY ==
--- NOTE | 2025-02-06 10:11 | A.OFFVIS_ITS ---
Vital Signs 02/06/25 10:13 Height 5 ft 8 in Weight 225 lb BMI 34.2 Intake Visit Reasons: Left knee pain Intake Note: Clive is an 89 year old male who presents with complaints of progressively worsening left knee pain. The patient describes his left knee pain as sharp and severe in nature. His pain has gotten worse over the last few years in spite of continued non operative treatments. He has failed the last 3 months of conservative treatment which has included Tylenol, anti-inflammatory medicines, a home exercise program and physical therapy exercises. He has had cortisone injections in the past which gave him no relief. He did have a Durolane viscosupplementation injection given into his right knee earlier this year. That injection gave him fairly good relief. At this point his left knee pain is interfering with his activities of daily living and his ability to sleep well through the night. Allergies amoxicillin (From Augmentin) Allergy (Severe, Verified 02/06/25 10:16) Rash clavulanic acid (From Augmentin) Allergy (Severe, Verified 02/06/25 10:16) Rash clindamycin Allergy (Severe, Verified 02/06/25 10:16) Hives levofloxacin (From Levaquin) Allergy (Severe, Verified 02/06/25 10:16) Headache Medication List - Last Reviewed 02/06/25 by Josiane Crawford amlodipine 10 mg PO DAILY aspirin 81 mg PO DAILY atorvastatin 20 mg PO BEDTIME calcium carbonate (Calcium 600) 600 mg PO DAILY multivitamin 1 tab PO DAILY [facility] Medical History (Updated 02/06/25 @ 10:25 by Sanya Olmstead MD) ABEBE (obstructive sleep apnea) HTN (hypertension) ABEBE on CPAP 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 Father No problems noted. Social History Patient Tobacco Use Status: Former Tobacco user Tobacco use type: Cigarette Years Smoked: 20 years service: Yes Current occupational status: retired Current occupation: Right hand dominate Physical Exam Vital Signs: BMI result Body Mass Index 34.2 Const Other: No physical examination was done today because of tele health appointment Telehealth Telehealth Telehealth Platform: Telephone Location of provider rendering services: practice address Location of patient: address on file Patient Identification confirmed using: Name, : Yes Telehealth method: voice only Patient verbally consented to treatment: Yes Patient verbally consented to billing insurance company: Yes Patient informed of any privacy concerns related to visit: Yes Minutes spent on Phone/Video with Pt.: 14 Assessment & Plan Assessment & Plan (1) Left knee pain: Code(s): M25.562 - Pain in left knee (2) Osteoarthritis of left knee: Code(s): M17.12 - Unilateral primary osteoarthritis, left knee Category: Medical Plan Mr. Servin presents with progressively worsening left knee pain due to osteoarthritis. I had a lengthy discussion with the patient regarding the treatment options. He wishes to hold off on surgery if at all possible. I agree with this plan. He has not gotten good relief from cortisone injections i n the past. Thus, I will see if his insurance company will cover a viscosupplementation injection such as Durolane for his left knee. I will see him back once the injection is available. Feel free to call me at any time should questions regarding his orthopedic management arise. Coding Level of Care Code Tele Est Pt Level 2 (25008) Complex EM visit Add On G2211 Diagnoses Left knee pain M25.562 Osteoarthritis of left knee M17.12
[2025-02-06 10:13] VITALS: BMI 34.2
--- OUTSIDE RECORDS SUMMARY | 2025-02-06 11:00 | XMS_ITS | Clinical Summary ---
Author Organization [facility] Address [address] [place] [address] Care Team Providers Care Production Technologist Name Role Phone Yusef Perez MD Primary [...] 1-dose 75+ series) 2010 Influenza Vaccine (#1) 2025 Hepatitis B Vaccines Aged Out No long er eligible based on patient's age to complete this topic RSV Ped < 20 months Aged Out No longe r eligible based on patient's age to complete this topic Care Teams Production Technologist Relationship Specialty Start Date End Date Yusef Perez MD [address] [facility] [address] [place] [address] PCP - General Internal Medicine 09/16/18
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
== END 2025-02-06 10:23 | disposition home or self-care (01) ==
PROVIDERS: PCP Internal Medicine; Visit Provider Orthopaedic Surgery
DX: M25.562 Pain in left knee (principal); M17.12 Unilateral primary osteoarthritis, left knee
CPT/HCPCS: 99213; G2211

== ENCOUNTER 2025-02-19 13:16 | Outpatient (AMB) | payer MEDICARE, SELFPAY ==
--- NOTE | 2025-02-19 13:19 | MHC.OFFVIS ---
Vital Signs 02/19/25 13:23 Height 5 ft 8 in Weight 225 lb BMI 34.2 Intake Visit Reasons: Inj: Left knee Durolane Intake Note: Clive is a 89 year old male who presents with complaints of progressively worsening left knee pain. The patient describes his pain as sharp in nature. His pain has gotten worse over the last few years in spite of continued non operative treatments. He has tried Tylenol, anti-inflammatory medicines and a home exercise program which gave him minimal relief. He wishes to hold off on surgery if at all possible. Allergies amoxicillin (From Augmentin) Allergy (Severe, Verified 02/19/25 13:22) Rash clavulanic acid (From Augmentin) Allergy (Severe, Verified 02/19/25 13:22) Rash clindamycin Allergy (Severe, Verified 02/19/25 13:22) Hives levofloxacin (From Levaquin) Allergy (Severe, Verified 02/19/25 13:22) Headache Medication List - Last Reconciled 02/19/25 by Sanya Olmstead MD amlodipine 10 mg PO DAILY aspirin 81 mg PO DAILY atorvastatin 20 mg PO BEDTIME calcium carbonate (Calcium 600) 600 mg PO DAILY multivitamin 1 tab PO DAILY [facility] Medical History (Updated 02/06/25 @ 10:25 by Sanya Olmstead MD) ABEBE (obstructive sleep apnea) HTN (hypertension) ABEBE on CPAP 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 Father No problems noted. Social History Patient Tobacco Use Status: Former Tobacco user Tobacco use type: Cigarette Years Smoked: 20 years service: Yes Current occupational status: retired Current occupation: Right hand dominate Physical Exam Vital Signs: BMI result Body Mass Index 34.2 Const Other: Well-nourished well-developed very friendly male awake alert and oriented x3 in no acute distress Extrem Other: Left knee examination shows a minimal effusion, palpable crepitus with range of motion, pain with range of motion, no instability Office Procedures AMB Joint Injection/Aspiration Joint Injection/Aspiration Primary Site: left knee Prep: site was prepped using aseptic technique Injected: 60 mg of (Durolane viscosupplementation) and 1% plain lidocaine Procedure: The patient tolerated the procedure well Coding 85617 - Large joint Procedure code (CPT) selection complete Assessment & Plan Assessment & Plan (1) Osteoarthritis of left knee: Code(s): M17.12 - Unilateral primary osteoarthritis, left knee Category: Medical Plan Mr. Servin presents with left knee pain due to osteoarthritis. The risks and benefits of a left knee Durolane viscosupplementation injection were discussed at length with the patient. The patient wished to proceed. He tolerated the injection well. He will continue with his home exercise program. He will contact me prior to his follow-up appointment in 3 months should any questions or concerns arise. Feel free to call me at any time should questions regarding his orthopedic management arise. I spent 20 minutes in reviewing the patient's records and imaging studies, seeing the patient and documenting in the medical record. Orders: Orders AMB Joint Injection/Aspiration 02/19/25 M17.12 - Unilateral primary osteoarthritis, left knee Coding Level of Care Code Est Pt Level 3 (42275) Complex EM visit Add On G2211 Diagnoses Osteoarthritis of left knee M17.12 CPT Codes Coding - 28880 Large joint: 75556 - Large joint ([id number])
[2025-02-19 13:23] VITALS: BMI 34.2
--- OUTSIDE RECORDS SUMMARY | 2025-02-19 13:26 | XMS_ITS | Clinical Summary ---
Author Organization [facility] Address [address] [place] [address] Care Team Providers Care Insurance Claim Auditor Name Role Phone Yusef Perez MD Primary [...] age to complete this topic Care Teams Insurance Claim Auditor Relationship Specialty Start Date End Date Yusef Perez MD [address] [facility] [address] [place] [address] PCP - General Internal Medicine 09/16/18
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
== END 2025-02-19 13:37 | disposition home or self-care (01) ==
LOC: HO.HOS 13:17
PROVIDERS: PCP Internal Medicine; Visit Provider Orthopaedic Surgery
DX: M17.12 Unilateral primary osteoarthritis, left knee (principal)
CPT/HCPCS: 20610

== ENCOUNTER → 2025-02-19 13:16 | Outpatient (BNVA) | payer MEDICARE, SELFPAY | PROVIDERS: PCP Internal Medicine; Visit Provider Orthopaedic Surgery | DX: M17.12 Unilateral primary osteoarthritis, left knee (principal) | CPT/HCPCS: 20610; J2003; J7318 ==

== ENCOUNTER → 2025-02-20 23:59 | Outpatient (BNV) | payer MEDICARE, SELFPAY ==
--- NOTE | 2025-02-21 19:37 | A.OFFVIS_ITS ---
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 Father No problems noted. Social History Patient Tobacco Use Status: Former Tobacco user Tobacco use type: Cigarette Years Smoked: 20 years service: Yes Current occupational status: retired Current occupation: Right hand dominate Office Procedures Cardiac Device Check Cardiac Device Check Details: Date of service- 02/20/2025 ; Battery life 6.9-8years; normal lead parameters; AP 7.1%; [employer]OD[employer]LYST >99%; no significant arrhythmias. Overall normal device function. 45726-Jxsadq Cardiac Device Interrogation, pacemaker Procedure code (CPT) selection complete Assessment & Plan Assessment & Plan (1) Status post placement of cardiac pacemaker: Code(s): Z95.0 - Presence of cardiac pacemaker Category: Surgical (2) Complete heart block: Code(s): I44.2 - Atrioventricular block, complete Category: Medical Plan x Coding Level of Care Code Procedure Only Diagnoses Status post placement of cardiac pacemaker Z95.0 Complete heart block I44.2 CPT Codes Cardiac Device Check - Cardiac Device 12: 52913-Irzjbh Cardiac Device Interrogation, pacemaker ([id number])
== END ==
PROVIDERS: PCP Internal Medicine; Visit Provider Internal Medicine
DX: I44.2 Atrioventricular block, complete (principal); Z95.0 Presence of cardiac pacemaker
CPT/HCPCS: 93294

== ENCOUNTER 2025-04-10 14:00 | Outpatient (AMB) | payer MEDICARE, SELFPAY ==
--- OUTSIDE RECORDS SUMMARY | 2024-06-19 09:00 | XMS_ITS ---
Author Organization [facility] Address [address] [place] [id number] Care Team Providers Care Will Call Order Clerk Name Role Phone Ana SALCEDO, Yusef Primary Care Provider Antolin Baig Unavailable [phone] Encounters Encounter Location Date Provider Diagnosis [facility] [address] [place] [phone] 06/19/2024 Antolin Thomas Plan Of Treatment Next Appt Details Provider Name:Antolin Thomas , 07/18/2025 02:00:00 PM, [address] [address], [place], [id number], Progress Notes * MICHAELQUETAClive HDOB: (89 yo M)Acc No.[id number]:06/19/2024 Progress Note Patient: Clive HERBERT Provider: Aamir Thomas DPM :1935 A ge:89 Y S ex:Male Date:06/19/2024 Address:[address] [place] [id number] Pcp:Yusef Perez MD Subjective: * Chief Complaints: * * Medical History: Objective: * Vitals: Assessment: Plan: * Treatment: * Images: * The named appointment provid er may or may not be the originator of this progress note, and it is not deemed complete until electronically signed by the appointment provider. Sign off status: Pending * Provider: Aamir Thomas DPM Date: 08/20/2023 Generated for Shauni francisco/Faxing/eTransmitting on: 0 04/10/2025 03:23 PM EDT
--- NOTE | 2025-04-10 14:14 | A.OFFVIS_ITS ---
Vital Signs 04/10/25 14:18 Height 5 ft 8 in Weight 226 lb BMI 34.4 Intake Visit Reasons: Right knee pain Intake Note: Clive is a 89 year old male who presents with complaints of progressively worsening right knee pain. He describes his pain as sharp in nature. He has failed the last 3 months of conservative treatment. He wishes to hold off on surgery if at all possible. He has had cortisone injections in the past which gave him minimal relief. Allergies amoxicillin (From Augmentin) Allergy (Severe, Verified 04/10/25 14:18) Rash clavulanic acid (From Augmentin) Allergy (Severe, Verified 04/10/25 14:18) Rash clindamycin Allergy (Severe, Verified 04/10/25 14:18) Hives levofloxacin (From Levaquin) Allergy (Severe, Verified 04/10/25 14:18) Headache Medication List - Last Reconciled 04/10/25 by Sanya Olmstead MD amlodipine 10 mg PO DAILY aspirin 81 mg PO DAILY atorvastatin 20 mg PO BEDTIME calcium carbonate (Calcium 600) 600 mg PO DAILY multivitamin 1 tab PO DAILY [facility] Medical History (Updated 04/11/25 @ 07:15 by Sanya Olmstead MD) ABEBE (obstructive sleep apnea) HTN (hypertension) ABEBE on CPAP 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 Father No problems noted. Social History Patient Tobacco Use Status: Former Tobacco user Tobacco use type: Cigarette Years Smoked: 20 years service: Yes Current occupational status: retired Current occupation: Right hand dominate Physical Exam Vital Signs: BMI result Body Mass Index 34.4 Const Other: Well-nourished well-developed very friendly male awake alert and oriented x3 in no acute distress Extrem Other: Right knee examination shows a minimal effusion, palpable crepitus with range of motion, pain with range of motion, no instability Office Procedures AMB Joint Injection/Aspiration Joint Injection/Aspiration Primary Site: right knee Prep: site was prepped using aseptic technique Injected: 60 mg of (Durolane viscosupplementation) and 1% plain lidocaine Procedure: The patient tolerated the procedure well Coding - Large joint Procedure code (CPT) selection complete Results Reviewed Results Reviewed: X-rays of the patient's right knee taken previously show joint space narrowing, subchondral sclerosis, no acute bony abnormalities Assessment & Plan Assessment & Plan (1) Osteoarthritis of right knee: Code(s): M17.11 - Unilateral primary osteoarthritis, right knee Category: Medical (2) Right knee pain: Code(s): M25.561 - Pain in right knee Category: Medical Plan Mr. Servin presents with right knee pain due to osteoarthritis. The risks and benefits of a right knee Durolane viscosupplementation injection were discussed at length with the patient. The patient wished to proceed. He tolerated the injection well. He will continue with his home exercise program. The patient also has left knee pain due to osteoarthritis. I will see if the patient's insurance company will approve a Durolane injection for his left knee. I will see him back once the injection is available. Feel free to call me at any time should questions regarding his orthopedic management arise. I spent 21 minutes in reviewing the patient's records and imaging studies, seeing the patient and documenting in the medical record. Orders: Orders AMB Joint Injection/Aspiration 04/10/25 M17.11 - Unilateral primary osteoarthritis, right knee Coding Level of Care Code Est Pt Level 3 (50245) Complex EM visit Add On G2211 Diagnoses Osteoarthritis of right knee M17.11 Right knee pain M25.561 CPT Codes Coding - Large joint: 72838 - Large joint ([id number])
[2025-04-10 14:18] VITALS: BMI 34.4
--- OUTSIDE RECORDS SUMMARY | 2025-04-10 15:23 | XMS_ITS | Clinical Summary ---
Author Organization [facility] Address [address] [place] [address] Care Team Providers Care Green Meat Grader Name Role Phone Yusef Perez MD Primary Care Provider [phone] Allergies Active Allergy Reactions Criticality Noted Date [...] age to complete this topic Care Teams Green Meat Grader Relationship Specialty Start Date End Date Yusef Perez MD [address] [facility] [address] [place] [address] PCP - General Internal Medicine 09/16/18
--- OUTSIDE RECORDS SUMMARY | 2025-04-10 15:23 | XMS_ITS | Data Portability ---
Author Organization [place] - [facility], Allergy Address [address] [address] Care Team Providers Care Scrap Sawyer Name Role Phone TRUMAN GRAHAM Primary Care Provider Assessment Encounter Date Assessment Date Assessment LastModified by Organization Details LastModified Time 04/07/2024 04/07/2024 88-year-old male presents for evaluation of his left ear. On examination there is no sign of TM perforation or trauma to the ear. Right otologic exam is unremarkable. Reassurance was provided and he may follow-up in 6 months for routine ear cleaning. [email or web address] Not available 04/07/2024 13:38:24 10/03/2024 10/03/2024 89-year-old male presents for reevaluation. On examination there is no cerumen impaction and dry flaking skin of meatus seems to be under good control with current regimen. Continue xeps-xdg-ycjanl r ointment. All questions were answered. [email or web address] Not available 10/03/2024 13:23:27 04/06/2025 04/06/2025 89-year-old male presents for reevaluation of eczema and cerumen. No cerumen on exam. Eczema is responding well to therapy. Continue current medications. Follow-up in 6 months. [email or web address] Not available 04/06/2025 13:33:36 Plan of Treatment Reminders Order Date Submit Date Provider Last Modified By Organization Details Last Modified Time Details Appointments Establish ed 15 2025 01:15P Zoya QUINTANILLA PA-C Not available Not available Not available Lab None recorded. Referral None recorded. Procedures None recorded. Surgeries None recorded. Imaging None recorded. Medication Orders None recorded. Patient TargetsNo targets recorded. Patient InstructionsNo instructions recorded. Reason for Referral None Reported. Problems Name Problem SNOMED Code Status Onset Date Resolution Date Notes Provider Name and Address Organization Details Recorded Time Impacted cerumen 22444375 Active 2013 Impacted cerumen; Note: Date Diagnosed : 4 11:57 AM (380.4) Not Available [facility] 4 03:01:32 Impacted cerumen of bilateral ears 90008205713 90129 Active 2015 Impacted cerumen, bilateral ; Note: Date Diagnosed : 01/31/2016 2:32 PM (H61.23) Impacte d cerumen, bilateral ; Note: Date Diagnosed : 5 2:14 PM (H61.23) ; Start Date : 5 EDDIE QUINTANILLA PA-C [address] [facility],[place] [address], [place], [address] , [facility] - [facility] 5 13:33:40 Impacted cerumen in left ear 23532434122 26166 Active 2018 Impacted cerumen, left ear; Note: Date Diagnosed : 9 1:23 PM (H61.22) Not Available [facility] 4 03:01:29 Sensorine ural hearing loss of bilateral ears 002943594 Active 2019 Sensorine ural hearing loss, bilateral ; Note: Date Diagnosed : 08/03/2019 2:24 PM (H90.3) Not Available [facility] 4 03:01:30 Neoplasm of uncertain behavior of skin 50949581 Active 2021 Neoplasm of uncertain behavior of skin; Note: Date Diagnosed : 2 3:20 PM (D48.5) Not Available [facility] 4 03:01:31 Otalgia of left ear 6273940745 Active 2023 EDDIE QUINTANILLA PA-C [address] [facility] [address], [place], [address] , [facility] - [facility] 4 13:38:27 Itching of ear 608041485 Active 2024 EDDIE QUINTANILLA PA-C [address], [place], [address] , [facility] - [facility] 13:23:38 Itching of skin 098222122 Active 2024 EDDIE QUINTANILLA PA-C [address], [place], [address] , [facility] - [facility] 13:33:44 Problem Notes None recorded. Medical Equipment None Reported. Allergies No known drug allergies Medications Name Sig Start Date Stop Date [...] TIMES A DAY,X7 DAYS NEEDED FOR COUGH 04/06 completed Not Available Not Available Not Available Lotrisone 1 %-0.05 % topical cream 04/06 completed Medicati on ID: [id number] P rescribe d By Name: LIN Breaux nd Name: Lotrison e Send Method: E-Prescr ibed Sub s Allowed: subs OK Speci al Instruct ion: apply to external right ear bid X 2 weeks Me dication GenericN cherrie: Lotrison e Not Available Not Available Not Available amlodipin e 5 mg tablet TAKE 1 + 1/2 TABLET BY MOUTH EVERY DAY 04/06 completed Not Available Not Available Not Available amlodipin e 10 mg tablet TAKE 1 TABLET BY MOUTH EVERY DAY active Not Available Not Available No t Available benzonata te 100 mg capsule TAKE 1 CAPSULE BY MOUTH 3 TIMES A DAY FOR 10 DAYS 10/03 completed Not Available Not Available Not Available aspirin 81 mg tablet Take 1 tablet every day by oral route. active Not Available Not Available No t Available doxycycli ne hyclate 100 mg tablet TAKE 1 TABLET BY MOUTH TWICE A DAY FOR 7 DAYS 04/06 completed Not Available Not Available Not Available atenolol 50 mg tablet active Not Available Not Available Not Available tobramyci n 0.3 %-dexamet hasone 0.1 % eye drops,diogenes penjeremy 10/17 completed Medicati on ID: [id number] [...] Last Updated DateTime 10/03/2024 173.99 cm VAHID ROMEO [place] [facility] 10/03/2024 13:07:06 Date Recorded Body height Body mass index (BMI) Body weight Provider Name and Address Organization Details Last Updated DateTime 04/06/2025 173.99 cm 34 kg/m2 789786.47 g Maria Esther Porras [place] - [facility] 04/06/2025 13:13:50 Date Recorded Body height Body mass index (BMI) Body weight Provider Name and Address Organization Details Last Updated DateTime 04/07/2024 173.99 cm 33.1 kg/m2 157549.91 g Lucy Pratt [place] [facility] 04/07/2024 13:10:17 Social History None recorded. Functional Status None recorded. Mental Status None recorded. Family History Nothing Reported. Medical History No medical history recorded. Past Encounters Encounter ID Performer Location Encounter Start Date Encounter Closed Date Diagnosis/Indication Diagnosis SNOMED-CT Code Diagnosis ICD10 Code Diagnosis IMO Codes Diagnosis Note [id number] EDDIE QUINTANILLA PA-C [facility] [address] [address] 04/07/2024 12:53:37 04/07/2024 13:32:33 Otalgia of left ear 1645060774 H92.02 [id number] EDDIE QUINTANILLA PA-C [facility] [address] [address] 10/03/2024 12:57:42 10/03/2024 13:19:28 Sensorineural hearing loss of bilateral ears 570485166 H90.3 Itching of skin 24106954 0 L29.9 [id number] EDDIE QUINTANILLA PA-C [facility] [address] [place] [address] 04/06/2025 13:07:35 04/06/2025 13:29:45 Impacted cerumen of bilateral ears 1994694657 860870 H61.23 Itching of skin 48298739 0 L29.9 Health Concerns Section Related Observation LastModified by Organization Detai ls LastModified Time None Recorded Concern Status LastModified by Organization Details LastModified Time None Recorded Advance Directives Directive None Recorded Payers Insurance Date Sequence Insurance Name Policy Number Policy Stephens Covered Member ID Stephens Member ID Guarantor Name 04/03/2025 2 [place] [id number] Clive Terry Gareth [id number] Clive Terry Gareth 04/03/2025 1 [place] [employer] Clive Terry Gareth [id number] Clive Servin Notes Date Note Type Note Provider Name and Address Organization Details Recorded Time 04/07/2024 text/html ROS as noted in the [facility] 88 year old male presents for evaluation of the left ear. He bumped his ear several days ago and had 1 day of pain which resolved. no otorrhea or bleeding. No hearing loss. FAUSTO MAURER MD [address] [place] [address], [phone], [facility] 04/07/2024 16:50:35 10/03/2024 text/html ROS as noted in the [facility] 89-year-old male presents for evaluation of ears. He has had no acute issues since his last visit but does continue to have itching. Uses an lmmw-rft-imguoev ointment which seems to work well. MIGUELINA LAKHANI MD [address] [place] [address], [phone], [facility] 10/03/2024 17:18:10 04/06/2025 text/html ROS as noted in the [facility] 89-year-old male presents for cerumen removal. History of eczema and has been using Lotrisone with good effect. CALI MOORE MD [address] [place] [address], [place], [address], [place] - [facility] 04/06/2025 17:16:44
--- OUTSIDE RECORDS SUMMARY | 2025-04-10 15:24 | XMS_ITS | Continuity of Care Document ---
Author Organization [place] - [facility], [facility] Address [address] [place] [address] Care Team Providers Care Manager Body Name Role Phone TRUMAN GRAHAM Primary Care Provider Assessment Encounter Date Assessment Date Assessment LastModified by Organization Details LastModified Time 04/06/2025 04/06/2025 89-year-old male presents for reevaluation of eczema and cerumen. No cerumen on exam. Eczema is responding well to therapy. Continue current medications. Follow-up in 6 months. [email or web address] Not available 04/06/2025 13:33:36 Plan of Treatment [...] Address Organization Details Recorded Time Impacted cerumen 58417822 Active 2013 Impacted cerumen; Note: Date Diagnosed : 4 11:57 AM (380.4) Not Available [facility] 4 03:01:32 Impacted cerumen of bilateral ears [id number] 58694 Active 2015 Impacted cerumen, bilateral ; Note: Date Diagnosed : 01/31/2016 2:32 PM (H61.23) Impacte d cerumen, bilateral ; Note: Date Diagnosed : 5 2:14 PM (H61.23) ; Start Date : 5 EDDIE QUINTANILLA PA-C [address] [facility],[place] [address], [place], [phone] , [facility] - [facility] 5 13:33:40 Impacted cerumen in left ear 71055912422 88777 Active 2018 Impacted cerumen, left ear; Note: Date Diagnosed : 9 1:23 PM (H61.22) Not Available [facility] 4 03:01:29 Sensorine ural hearing loss of bilateral ears 017910743 Active 2019 Sensorine ural hearing loss, bilateral ; Note: Date Diagnosed : 08/03/2019 2:24 PM (H90.3) Not Available [facility] 4 03:01:30 Neoplasm of uncertain behavior of skin 04950917 Active 2021 Neoplasm of uncertain behavior of skin; Note: Date Diagnosed : 2 3:20 PM (D48.5) Not Available [facility] 4 03:01:31 Otalgia of left ear 9907105644 Active 2023 EDDIE QUINTANILLA PA-C [address] [facility],[place] [address], [place], [phone] , [facility] - [facility] 4 13:38:27 Itching of ear 468183728 Active 2024 EDDIE QUINTANILLA PA-C [address] [facility],[place] [address], [place], [phone] , [facility] - [facility] 5 13:23:38 Itching of skin 823644114 Active 2024 EDDIE QUINTANILLA PA-C [address] [facility],[place] [address], [place], [phone] , [facility] - [facility] 5 13:33:44 Problem Notes None recorded. Medical Equipment [...] topical cream 04/06 completed Medicati on ID: [id number] P genoriyuri d By Name: LIN Breaux nd Name: [...] n 0.3 %-dexamet hasone 0.1 % eye drops,[facility] 10/17 completed Medicati on ID: [id number] Dur [...] Updated DateTime 04/06/2025 173.99 cm 34 kg/m2 361944.47 g Maria Esther Porras [place] - [facility] 04/06/2025 13:13:50 Social History None recorded. Functional Status None recorded. Mental Status None recorded. Family History Nothing Reported. Medical History No medical history recorded. Past Encounters Encounter ID Performer Location Encounter Start Date Encounter Closed Date Diagnosis/Indication Diagnosis SNOMED-CT Code Diagnosis ICD10 Code Diagnosis IMO Codes Diagnosis Note [id number] EDDIE QUINTANILLA PA-C [facility] [address] [phone] 04/06/2025 13:07:35 04/06/2025 13:29:45 Impacted cerumen of bilateral ears [id number] 069872 H61.23 Itching of skin 35716780 0 L29.9 Health Concerns Section Related Observation LastModified by Organization Detai ls LastModified Time None Recorded Concern Status LastModified by Organization Details LastModified Time None Recorded Payers Encounter Date Sequence Insurance Name Policy Number Policy Stephens Covered Member ID Stephens Member ID Guarantor Name 04/06/2025 2 [place] [id number] Clive Servin [id number] Clive Servin 04/06/2025 1 [place] [employer] Clive Servin [id number] Clive Servin Notes Date Note Type Note Provider Name and Address Organization Details Recorded Time 04/06/2025 text/html ROS as noted in the HPI 89-year-old male presents for cerumen removal. History of eczema and has been using Lotrisone with good effect. CALI MOORE MD [address] [place] [address], [phone], [facility] - [facility] 04/06/2025 17:16:44
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
== END 2025-04-10 14:44 | disposition home or self-care (01) ==
LOC: HO.HOS 14:00
PROVIDERS: PCP Internal Medicine; Visit Provider Orthopaedic Surgery
DX: M17.11 Unilateral primary osteoarthritis, right knee (principal); M25.561 Pain in right knee
CPT/HCPCS: 20610; 99213